=== PATIENT | male | born 1955 | race Two or more races ===

== ENCOUNTER 2025-02-09 16:46 | Inpatient (IN) | payer OTHER ==
[~2025-02-09] VITALS: Ht 162.6 cm; Wt 71.0 kg
--- NOTE | 2025-02-09 16:57 | ECG ---
[facility] Test Date: 2025-02-09 Test Time: 16:50:20 Pat Name: NITIN HERNANDEZDepartment: ER Room: 0220T Gender: M Manager Site: [place] : 1955 Requested By: ANGELA BOOGIE Order Number: [id number] Reading MD: Randy Adams Measurements Intervals [place] Rate: 56 P: 44 IL: 159 QRS: -52 QRSD: 110 T: 150 QT: 413 QTc: 399 Interpretive Statements Sinus rhythm Multiform ventricular premature complexes LVH with IVCD, LAD and secondary repol abnrm Baseline wander in lead(s) V4 Electronically Signed On 02-13-2025 12:39:34 PDT by Randy Adams Please click the below link to view image of tracing.
--- NOTE | 2025-02-09 17:08 | ED.PDOC ---
History of Present Illness HPI Comments 37-vtkx-[id number]-male presents to the ED with a chief complaint generalized weakness onset 1.5 months ago. Patient's roommate states the patient was in his normal state of health (ambulatory and without neuro deficit), then woke up one morning about 1.5 months ago experiencing LT leg weakness. Pt reports, "I was dragging my left leg," then weakness progressively worsened to involve both lower extremities, progressing to both upper extremites, to the point where he could no longer ambulate or hold objects. He also notes numbness that started in his lower extremities and now has ascended to BUE and his abdominal wall. About 1 week ago he began experiencing bilateral lower extremity swelling, difficulty breathing, and associated abdominal and back "tightness." Per friend, patient sought medical attention for the first time yesterday, was sent to [facility] for blood tests and was called today to go to ED due to abnormal lab results, CK being one of them. Patient denies any PMHx as well as chest pain, dizziness, blurry vision, headache, nausea, vomiting, constipation, fevers, chills. No other symptoms or modifying factors present at this time. Chief Complaint: Abnormal LAB's Time Seen by MD: 16:52 Reviewed Notes: Medications, Allergies Allergies: Coded Allergies: NO KNOWN ALLERGIES (Unverified , 02/09/25) Information Source: Patient, Friend Mode of Arrival: Ambulatory Severity: Moderate Timing: Months Duration: Since onset Prehospital treatment: None Past Medical History PAST MEDICAL HISTORY: Denies Surgical History: Denies all surgeries Family History Family History: Reviewed,noncontributory to illness Social History Smoker: Non-Smoker Alcohol: Denies ETOH Use Drugs: Denies Drug Use Lives In: Home Constitutional: reports: weakness; denies: chills, diaphoresis, fatigue, fever, malaise, sweats, others EENTM: denies: blurred vision, double vision, ear bleeding, ear discharge, ear drainage, ear pain, ear ringing, eye pain, eye redness, hearing loss, mouth pain, mouth swelling, nasal discharge, nose bleeding, nose congestion, nose pain, photophobia, tearing, throat pain, throat swelling, voice changes, others Respiratory: reports: shortness of breath; denies: cough, hemoptysis, orthopnea, SOB at rest, SOB with excertion, stridor, wheezing, others Cardiovascular: denies: chest pain, dizzy spells, diaphoresis, Dyspnea on exertion, edema, irregular heart beat, left arm pain, lightheadedness, palpitations, PND, syncope, others Gastrointestinal: reports: abdominal pain; denies: abdomen distended, blood streaked bowels, constipated, diarrhea, dysphagia, difficulty swallowing, hematemesis, melena, nausea, poor appetite, poor fluid intake, rectal bleeding, rectal pain, vomiting, others Genitourinary: denies: burning, dysuria, flank pain, frequency, hematuria, incontinence, penile discharge, penile sore, pain, testicle pain, testicle swelling, urgency, others Neurological: reports: weakness; denies: dizziness, fainting, headache, left sided numbness, left sided weakness, numbness, paresthesia, pre-existing deficit, right sided numbness, right sided weakness, seizure, speech problems, tingling, tremors, others Musculoskeletal: reports: back pain; denies: gout, joint pain, joint swelling, muscle pain, muscle stiffness, neck pain, others Integumetry: denies: bruises, change in color, change in hair/nails, dryness, laceration, lesions, lumps, rash, wounds, others Allergic/Immunocompromised: denies: Difficulty Healing, Frequent Infections, Hives, Itching, others Endocrine: denies: excessive hunger, excessive sweating, excessive thirst, excessive urination, flushing, intolerance to cold, intolerance to heat, unexplained weight gain, unexplained weight loss, others Psychiatric: denies: anxiety, bipolar disorder, depression, hopeless, panic disorder, schizophrenia, sleepless, suicidal, others All Other Systems: Reviewed and Negative Physical Exam General Appearance: No Apparent Distress, Other (ill appearing) HEENT: PERRL/EOMI, Other (no facial asymmetry or dysarthria) Neck: Full Range of Motion, Non-Tender, Normal Inspection, Supple Respiratory: Decreased Breath Sounds, Lungs Clear, No Accessory Muscle Use, No Respiratory Distress Cardiovascular: No JVD, Regular Rate/Rhythm Breast Exam: Deferred Gastrointestinal: Non Tender, Soft Genitalia: Deferred Pelvic: Deferred Rectal: Deferred Extremities: Swelling (BLE and hand 1+ edema), Other (BLE stiffness) Neurologic: Alert (Oriented x4), Motor Weakness (Motor strength 0/5 bilateral lower extremities, 2/5 bilateral upper extremities), Sensory Deficit (Absent light touch sensation from the feet to the nipple line) Cerebellar Function: Unable to Test Reflexes: Other (1+ patellar tendon reflex left lower extremity 1+, 0 right lower extremity) Skin: Warm, Wounds (Superficial old appearing abrasions bilateral lower extremities. Hyperpigmented chronic appearing bilateral lower extremity skin changes) Peripheral Pulses: 2+ dorsalis pedis (R), 2+ dorsalis pedis (L), 2+ Radial (R), 2+ Radial (L) Lymphatic: NOT DONE Was a procedure done? Was a procedure done?: Yes Sedation Sedation?: No Lumbar Puncture Indication: Infection Procedure: Upright Spinal Needle size: 21 Inserted in: L 4th interspace Lumbar Puncture Result: Opening Pressure was (not measured), Amount of CSF removed (4ml) Success: Was successful CSF Fluid: Clear Informed consent obtained: Yes Risks/benefits/alt described: Yes Notes consent obtained using hoop maker helper machine. risks, benefits and alternatives to tx explained in layman's terms. pt a&o x 4, capable of making informed decisions. pt consented to procedure. EKG EKG : Comments Sinus bradycardia, rate 56, normal intervals, left axis deviation, possible old anteroseptal infarct, occasional PVCs, lateral T-wave inversion Differential Dx Considerations may include: Guillain-Majestic, demyelinating neuroopathy, ALS, rhabdomyolysis or other myopathy, electrolyte imbalance, spinal cord disease, CVA, toxic neuropathy, tick paralysis, among others X-Ray, Labs, Meds, VS Vital Signs Date Time Temp Pulse Resp B/P (MAP) Pulse Ox O2 Delivery O2 Flow Rate FiO2 02/09/25 20:59 62 16 130/92 02/09/25 17:47 18 97 Room Air* 0 21 02/09/25 17:46 98.0 74 21 122/59 (80) 96 98.0 02/09/25 17:27 99.1 82 20 114/61 (78) 96 99.1 02/09/25 16:50 56 Lab Test 02/09/25 21:28 02/09/25 20:09 02/09/25 18:11 02/09/25 17:13 Range/Units CSF Tube Number Pending CSF Appearance Pending CSF WBC Pending CSF RBC Pending CSF Protein (Tube 2) 73.9 H 15-45 mg/dL CSF Mononuclear Cells Pending CSF Polymorphonuclear Cells Pending CSF Glucose 60 40-70 mg/dL Troponin I High Sensitivity 15 14 13 </=54 ng/L White Blood Count 5.4 4.4-10.8 10^3/uL Red Blood Count 5.27 4.5-5.90 10^6/uL Hemoglobin 17.3 13.5-17.5 g/dL Hematocrit 50.2 41.0-53.0 % Mean Corpuscular Volume 95.2 80.0-100.0 fL Mean Corpuscular Hemoglobin 32.9 H 28.0-32.0 pg Mean Corpuscular Hemoglobin Concent 34.6 32.0-36.0 g/dL Red Cell Distribution Width 13.1 11.8-14.3 % Platelet Count 183 140-450 10^3/uL Mean Platelet Volume 7.8 6.9-10.8 fL Neutrophils (%) (Auto) 54.7 37.0-80.0 % Lymphocytes (%) (Auto) 28.8 10.0-50.0 % Monocytes (%) (Auto) 11.4 0.0-12.0 % Eosinophils (%) (Auto) 4.6 0.0-7.0 % Basophils (%) (Auto) 0.5 0.0-2.0 % Neutrophils # (Auto) 2.9 1.6-8.6 10 ^3/uL Lymphocytes # (Auto) 1.5 0.4-5.4 10 ^3/uL Monocytes # (Auto) 0.6 0-1.3 10 ^3/uL Eosinophils # (Auto) 0.2 0-0.8 10 ^3/uL Basophils # (Auto) 0 0-0.2 10 ^3/uL Nucleated Red Blood Cells 0.2 % Sodium Level 137 136-145 mmol/L Potassium Level 4.0 3.5-5.1 mmol/L Chloride Level 106 98-107 mmol/L Carbon Dioxide Level 24 20-31 mmol/L Anion Gap 7 5-15 Blood Urea Nitrogen 19 9-23 mg/dL Creatinine 0.81 0.700-1.30 mg/dL Glomerular Filtration Rate Calc 97 >90 mL/min BUN/Creatinine Ratio 23.5 H 10.0-20.0 Serum Glucose 136 H 74-106 mg/dL Calcium Level 9.5 8.7-10.4 mg/dL Phosphorus Level 3.4 2.4-5.1 mg/dL Magnesium Level 2.2 1.6-2.6 mg/dL Total Bilirubin 0.7 0.2-1.0 mg/dL Aspartate Amino Transferase (AST) 25 13-40 U/L Alanine Aminotransferase (ALT) 22 7-40 U/L Alkaline Phosphatase 89 46-116 U/L Creatine Kinase 416 H 46-171 U/L B-Type Natriuretic Peptide 90.03 0-100 pg/mL Total Protein 7.0 5.7-8.2 g/dL Albumin 4.1 3.2-4.8 g/dL Test 02/09/25 00:00 Range/Units Urine Color Light-yellow Yellow Urine Clarity Turbid H Clear Urine pH 7.0 5.0-9.0 Urine Specific [place] 1.019 1.001-1.035 Urine Protein Negative Negative Urine Ketones Negative Negative Urine Blood Trace H Negative /uL Urine Nitrite Negative Negative Urine Bilirubin Negative Negative Urine Urobilinogen Normal Negative mg/dL Urine Leukocyte Esterase Negative Negative /uL Urine RBC <1 0 - 3 /hpf Urine Microscopic WBC < 1 0-3 /HPF Urine Squamous Epithelial Cells Few <5 /hpf Urine Amorphous Crystals Few None Seen /hpf Urine Bacteria Few H None Seen /hpf Urine Glucose Normal Normal mg/dL PROCEDURE(s): HWOCT - HEAD WITHOUT CONTRAST REASON: ascending paralysis and numbness ORDER NUMBER(s): [id number], ACCESSION NUMBER(s): [id number] EXAM: CT HEAD WITHOUT CONTRAST INDICATION: ascending paralysis and numbness TECHNIQUE: CT of the head without intravenous contrast. Radiation Dose Information: CT Dose: CTDI volume is 53.99 mGy. Dose-length product is 971.88 mGy*cm The dose indicators for CT are the volume Computed Tomography (CT) Dose Index (CTDIvol) and the Dose Length Product (DLP), and are measured in units of mGy and mGy-cm, respectively. These indicators are not patient dose, but values generated from the CT scanner acquisition factors. The report includes radiation exposure data for exposures received during this examination. COMPARISON: None FINDINGS: There is no evidence of acute intracranial hemorrhage, extra-axial collection, mass effect, midline shift, herniation or hydrocephalus. The ventricles, sulci and cisterns are age appropriate. The esparza-white differentiation is intact. Patchy periventricular and subcortical white matter hypoattenuation is nonspecific but may be related to small vessel ischemic disease. The visualized paranasal sinuses and mastoid air cells are clear. The surrounding soft tissues and osseous structures are unremarkable. IMPRESSION: 1. No acute intracranial hemorrhage. 2. No CT findings of territorial ischemia. 3. No prior studies for comparison. 4. Consider MRI for further evaluation. HS:Y EDURE(s): CXRP - CHEST PORTABLE REASON: diff breathing ORDER NUMBER(s): [id number], ACCESSION NUMBER(s): [id number] EXAM: XY CHEST PORTABLE TECHNIQUE: Single frontal chest radiograph CLINICAL HISTORY: diff breathing COMPARISON: None Findings/Impression: Frontal chest radiograph demonstrates no acute osseous or superficial soft tissue abnormalities. The trachea is midline. Borderline cardiomegaly. Mild pulmonary vascular congestion. Right lower lung field nodular opacity favored to reflect a nipple shadow. No pneumothorax, pleural effusions, or consolidations. EDURE(s): BLDVT - BiLat Lower DVT REASON: BLE edema ORDER NUMBER(s): [id number], ACCESSION NUMBER(s): [id number] EXAM: US BILAT LOWER DVT HISTORY: BLE edema COMPARISON: None available at the time of dictation TECHNIQUE: Duplex Doppler evaluation of the deep venous systems of both lower extremities from the common femoral veins to the popliteal veins including color Doppler and spectral/pulsed waveform analysis was performed. FINDINGS: RIGHT SIDE: The common femoral vein demonstrates appropriate compressibility and waveform variability. There is compressibility/patency of the great saphenous vein at the proximal thigh. The femoral vein demonstrates appropriate compressibility and waveform variabi lity. The deep femoral vein demonstrates appropriate compressibility and waveform variability. The popliteal vein demonstrates appropriate compressibility and waveform variability. There is normal compressibility at the tibioperoneal trunk. LEFT SIDE: The common femoral vein demonstrates appropriate compressibility and waveform variability. There is compressibility/patency of the great saphenous vein at the proximal thigh. The femoral vein demonstrates appropriate compressibility and waveform variabi lity. The deep femoral vein demonstrates appropriate compressibility and waveform variability. The popliteal vein demonstrates appropriate compressibility and waveform variability. There is normal compressibility at the tibioperoneal trunk. IMPRESSION: 1. No right or left femoropopliteal venous thrombosis. If clinical concern/symptoms persist or worsen, short-interval follow-up study is suggested. X-Ray, Labs, Meds, VS Comment 69-year-old male with no known past medical history presenting with ascending paralysis and numbness associated with difficulty breathing and extremity stiffness Vitals remarkable for initial heart rate of 56 Exam remarkable for motor weakness in the lower extremities greater than the upper extremities, lack of sensation touch from the feet to the nipple line Rhythm strip independently interpreted by me: Sinus bradycardia, rate 56, occasional PVCs CT head and Chest x-ray remarkable Bilateral lower extremity ultrasound negative for DVT CBC, CMP, BNP and troponin unremarkable, total CK 416, UA blood and few bacteria, otherwise unremarkable Patient treated with the following in the ED: Morphine 4mg IV (for back discomfort due to positioning prior to LP), zofran 4mg IV. Plan is to admit the patient for brain and spine MRI, neurology evaluation. Discussed with TODD Monzon, who will consult with Dr. Roblero prior to admitting the patient. They requested CT C/T/L spine which was ordered. Case discussed with Dr. Phyllis Solomon, neurology, who will further discuss the case with TODD Monzon. She did recommend stat LP, which was performed by me in the ED. Please see procedure note for details. Time of 1ST Reevaluation: 17:22 Reevaluation 1ST: Unchanged Patient Education/Counseling: Diagnosis, Treatment, Prognosis Family Education/Counseling: Diagnosis, Treatment, Prognosis Departure 1 Departure Time of Disposition: 17:42 Impression: Primary Impression: Ascending paralysis Disposition: 09 ADMITTED INPATIENT Admit to: Tele Condition: Guarded Critical Care Note Critical Care Time?: No Stability Stability form required: No Heart Score Heart Score: Heart Score Response (Comments) Value History N/A 0 EKG N/A 0 Age N/A 0 Risk Factors N/A 0 Troponin N/A 0 Total 0 I personally scribed for ANGELA JOHNSON MD ([email or web address]) on 02/09/25 at 17:08. Electronically submitted by Pippa Bowens ([email or web address]). ANGELA JOHNSON MD February 09, 2025 17:08
[2025-02-09 17:29] LABS: Basophils # (auto) 0 10 ^3/uL (0-0.2); Basophils % (auto) 0.5 % (0.0-2.0); Eosinophils # (auto) 0.2 10 ^3/uL (0-0.8); Eosinophils % (auto) 4.6 % (0.0-7.0); Hematocrit 50.2 % (41.0-53.0); Hemoglobin 17.3 g/dL (13.5-17.5); Lymphocytes # (auto) 1.5 10 ^3/uL (0.4-5.4); Lymphocytes % (auto) 28.8 % (10.0-50.0); Mean Corpuscular Hemoglobin 32.9 pg (28.0-32.0); Mean Corpuscular Hgb Conc. 34.6 g/dL (32.0-36.0); Mean Corpuscular Volume 95.2 fL (80.0-100.0); Monocytes # (auto) 0.6 10 ^3/uL (0-1.3); Monocytes % (auto) 11.4 % (0.0-12.0); Neutrophils # (auto) 2.9 10 ^3/uL (1.6-8.6); Neutrophils % (auto) 54.7 % (37.0-80.0); Nucleated Red Blood Cells % 0.2 %; Platelet Count (auto) 183 10^3/uL (140-450); Red Blood Cells 5.27 10^6/uL (4.5-5.90); Red Cell Distribution Width 13.1 % (11.8-14.3); White Blood Cell 5.4 10^3/uL (4.4-10.8)
[2025-02-09 17:46] LABS: Alanine Aminotransferase 22 U/L (7-40); Albumin 4.1 g/dL (3.2-4.8); Alkaline Phosphatase 89 U/L (46-116); Anion Gap 7 (5-15); Aspartate Aminotransferase 25 U/L (13-40); BUN/Creatinine Ratio 23.5 (10.0-20.0); Blood Urea Nitrogen 19 mg/dL (9-23); Calcium 9.5 mg/dL (8.7-10.4); Carbon Dioxide 24 mmol/L (20-31); Chloride 106 mmol/L (98-107); Sodium 137 mmol/L (136-145)
[2025-02-09 17:47] VITALS: RESP 18; O2SAT 97
[2025-02-09 17:47] LABS: Bilirubin, Total 0.7 mg/dL (0.2-1.0)
--- NOTE | 2025-02-09 17:56 | DVH ---
EXAM: CT HEAD WITHOUT CONTRAST INDICATION: ascending paralysis and numbness TECHNIQUE: CT of the head without intravenous contrast. Radiation Dose Information: CT Dose: CTDI volume is 53.99 mGy. Dose-length product is 971.88 mGy*cm The dose indicators for CT are the volume Computed Tomography (CT) Dose Index (CTDIvol) and the Dose Length Product (DLP), and are measured in units of mGy and mGy-cm, respectively. These indicators are not patient dose, but values generated from the CT scanner acquisition factors. The report includes radiation exposure data for exposures received during this examination. COMPARISON: None FINDINGS: There is no evidence of acute intracranial hemorrhage, extra-axial collection, mass effect, midline s hift, herniation or hydrocephalus. The ventricles, sulci and cisterns are age appropriate. The esparza-white differentiation is intact. Patchy periventricular and subcortical white matter hypoattenuation is nonspecific but may be related to small vessel ischemic disease. The visualized paranasal sinuses and mastoid air cells are clear. The surrounding soft tissues and osseous structures are unremarkable. IMPRESSION: 1. No acute intracranial hemorrhage. 2. No CT findings of territorial ischemia. 3. No prior studies for comparison. 4. Consider MRI for further evaluation. HS:Y
[2025-02-09 18:09] LABS: Creatine Kinase IFCC 416 U/L (46-171); Glucose 136 mg/dL (74-106)
[2025-02-09 18:17] LABS: Urine Amorphous Crystal FEW /hpf (None Seen); Urine Bacteria FEW /hpf (None Seen); Urine Blood TRACE /uL (Negative); Urine Clarity Turbid (Clear); Urine Color Light-Yellow (Yellow); Urine Protein, UAD Negative (Negative); Urine Specific Gravity 1.019 (1.001-1.035); Urine Squamous Epithelial Cell FEW /hpf (<5); Urine Urobilinogen Normal (Negative); Urine WBC < 1 /HPF (0-3)
[2025-02-09 18:21] LABS: Magnesium 2.2 mg/dL (1.6-2.6)
[2025-02-09 18:23] LABS: Phosphorus 3.4 mg/dL (2.4-5.1)
--- NOTE | 2025-02-09 18:49 | DVH ---
EXAM: XY CHEST PORTABLE TECHNIQUE: Single frontal chest radiograph CLINICAL HISTORY: diff breathing COMPARISON: None Findings/Impression: Frontal chest radiograph demonstrates no acute osseous or superficial soft tissue abnormalities. The trachea is midline. Borderline cardiomegaly. Mild pulmonary vascular congestion. Right lower lung field nodular opacity favored to reflect a nipple shadow. No pneumothorax, pleural effusions, or consolidations.
--- NOTE | 2025-02-09 19:04 | DVH ---
EXAM: US BILAT LOWER DVT HISTORY: BLE edema COMPARISON: None available at the time of dictation TECHNIQUE: Duplex Doppler evaluation of the deep venous systems of both lower extremities from the co mmon femoral veins to the popliteal veins including color Doppler and spectral/pulsed waveform analys is was performed. FINDINGS: RIGHT SIDE: The common femoral vein demonstrates appropriate compressibility and waveform variability. There is compressibility/patency of the great saphenous vein at the proximal thigh. The femoral vein demonstrates appropriate compressibility and waveform variability. The deep femoral vein demonstrates appropriate compressibility and waveform variability. The popliteal vein demonstrates appropriate compressibility and waveform variability. There is normal compressibility at the tibioperoneal trunk. LEFT SIDE: The common femoral vein demonstrates appropriate compressibility and waveform variability. There is compressibility/patency of the great saphenous vein at the proximal thigh. The femoral vein demonstrates appropriate compressibility and waveform variability. The deep femoral vein demonstrates appropriate compressibility and waveform variability. The popliteal vein demonstrates appropriate compressibility and waveform variability. There is normal compressibility at the tibioperoneal trunk. IMPRESSION: 1. No right or left femoropopliteal venous thrombosis. If clinical concern/symptoms persist or worsen, short-interval follow-up study is suggested.
[2025-02-09] MEDS: IOHEXOL 300 MG/ML 100ML BOTTLE IJ ONE (20:21)
[2025-02-09 20:45] VITALS: RESP 16; O2SAT 98
[2025-02-09] MEDS: ONDANSETRON HCL 4 MG/2 ML VIAL ONE (20:59)
[2025-02-09] MEDS: MORPHINE SULFATE 4 MG/ML SYR/VIAL ONE (20:59)
--- NOTE | 2025-02-09 21:31 | DVH ---
EXAM: CT CERVICAL WO W CONTRAST INDICATION: ascending paralysis and numbness EXAM DATE: 02/09/2025 08:37 PM COMPARISON: None TECHNIQUE: Multiple axial CT images of the cervical spine were obtained using bone algorithm. Axial a nd coronal reformatting was done. Bone and soft tissue windows were reviewed. Radiation Dose Information: CT Dose: CTDI volume is 44.23 mGy. Dose-length product is 1095.19 mGy*cm Mild straightening of the normal cervical lordotic curve may be secondary to patient positioning or m uscle spasm. Bony spondylosis and degenerative disc changes are noted from C3 through C7. There is a 5.4 mm subchondral cyst anteriorly near the inferior articular surface C3. FINDINGS: The cervical alignment is intact. No acute cervical spine fracture is identified. The vertebral body heights are intact. No suspicious osseous lesions are identified. No significant degenerative changes are identified. Sqyb-um-jvwrepkg spinal stenosis of the central canal C3-4 measuring 7-8 mm. There is no prevertebral soft tissue swelling. IMPRESSION: 1. No evidence of acute cervical spine fracture or traumatic malalignment. 2. Hqyl-qr-iojodayy spinal stenosis C3-4. 3. CT is nondiagnostic for evaluating demyelinating disease recommend MRI. All CT scans at this medical facility are performed using dose modulation techniques as appropriate t o a performed exam including the following: Automated exposure control was utilized; adjustment of th e MA and/or KV according to patient size; and use of iterative reconstruction technique. HS:Y
--- NOTE | 2025-02-09 21:42 | DVH ---
CT LUMBAR SPINE WO/ W contrast Date: 02/09/2025 08:28 PM History: ascending paralysis and numbness Comparison: None TECHNIQUE: Multiple axial CT images of the lumbosacral spine were obtained using bone algorithm. Axial and coron al reformatting was done. Bone and soft tissue windows were reviewed. Radiation Dose Information: CT Dose: CTDI volume is 36.28 mGy. Dose-length product is 2694.66 mGy*cm Omni 300: 50 mL FINDINGS: No CT evidence of definite acute fracture, spinal dislocation, or significant appearing acute subluxa tion is seen. The visualized paraspinal soft tissues are grossly unremarkable. T12-L1 There is no evidence of central spinal canal or neuroforaminal stenosis. L1-L2 There is no evidence of central spinal canal or neuroforaminal stenosis. L2-L3 moderate spinal stenosis at L2-3 with the thecal sac compressed to mm front to back dimension L3-L4 There is no evidence of central spinal canal or neuroforaminal stenosis. L4-L5 There is no evidence of central spinal canal or neuroforaminal stenosis. L5-S1 hypertrophic arthritic changes of the posterior articulating facets and hypertrophy of the liga mentum flavum bilaterally. Moderate spinal stenosis at this level. Canal measures 6.2 mm front to caitlyn k IMPRESSION: 1. No definite CT evidence of acute fracture or dislocation of the bony lumbar spine. 2. Tyni-lg-asubceki spinal stenosis L2-3 L5-S1. Recommend MRI or repeat CT with intrathecal contrast to determine significant stenosis. CT is nondiagnostic for evaluating demyelinating disease even wit h IV contrast. Recommend MRI. All CT scans at this medical facility are performed using dose modulation techniques as appropriate to a performed exam including the following: Automated exposure control was utilized; adjustment of t he MA and/or KV according to patient size; and use of iterative reconstruction technique. HS:Y
[2025-02-09 22:09] LABS: Protein, CSF 73.9 mg/dL (15-45)
[2025-02-09 22:44] LABS: CSF White Blood Cells 1 CUMM (0-5); Description,CSF CLEAR, COLORLESS
[2025-02-09] MEDS ORDERED: ONDANSETRON HCL 4 MG/2 ML VIAL IV PRN (22:45)
--- NOTE | 2025-02-09 23:03 | DVH ---
EXAM: CT THORACIC SPINE WO W HISTORY: ascending paralysis and numbness COMPARISON: None CTDIvol mGy, DLP mGy*cm. TECHNIQUE: Multiple axial CT images of the spine were obtained using bone algorithm. Axial and coron al reformatting was done. Bone and soft tissue windows were reviewed. FINDINGS: Mild thoracic dextroscoliosis. No listhesis. The thoracic vertebral bodies demonstrate no evidence of fracture or other significant abnormality. Paraspinal soft tissues appear unremarkable. Mild thoraci c spondylosis without significant disc-osteophyte, spinal canal or neural foraminal stenosis at any o f the levels in the thoracic spine. IMPRESSION: No significant abnormality demonstrated.
[2025-02-10] VITALS (10 sets, daily range): BP systolic 112–124; BP diastolic 50–71; PULSE 55–70; RESP 16–18; TEMP 96.1–97.8; O2SAT 92–98
--- NOTE | 2025-02-10 03:11 | DVHHP2 ---
Admitting Diagnosis: Ascending paralysis, r/o GBS History of Present Illness History Source: Patient Exam Limitations: No limitations HPI Mr. Bassam Aguilar is a [id number]-male with no reported history who presents with a chief complaint of generalized weakness onset 3 months ago. Patient's roommate states the patient was in his normal state of health (ambulatory and without neuro deficit), then woke up one morning about 1.5 months ago experiencing LT leg weakness. Pt reports, "I was dragging my left leg," then weakness progressively worsened to involve both lower extremities, progressing to both upper extremities, to the point where he could no longer ambulate or hold objects. He also notes numbness that started in his lower extremities and now has ascended to BUE and his abdominal wall. About 1 week ago he began experiencing bilateral lower extremity swelling, difficulty breathing, and associated abdominal and back "tightness." Per friend, patient sought medical attention for the first time yesterday, was sent to [facility] for blood tests and was called today to go to ED due to abnormal lab results, patient found to have a CK of 416 as abnormal lab on ED workup. Patient CXR: unremarkable, CT head wo contrast no acute abnormality, BLE venous US with no DVT. Patient denies chest pain, dyspnea, headaches, dizziness, blurry vision, nausea, vomiting, fevers, chills, dysuria, loss of bowel function. Patient admitted for further evaluation and treatment. Home Meds No Active Prescriptions or Reported Meds Past Medical History Cardiac: No pertinent Hx Pulmonary: No pertinent Hx Central Nervous System: No pertinent Hx GI: No pertinent Hx Hemotology/Oncology: No pertinent Hx Hepatobiliary: No pertinent Hx Psychiatric: No pertinent Hx Musculoskeletal: No pertinent Hx Rheumotologic: No pertinent Hx Infectious Disease: No peritnent Hx ENT: No pertinent Hx Renal/: No pertinent Hx Endocrine: No pertinent Hx Dermatology: No pertinent Hx Patient Family History: Patient reports no known family medical history. Smoker: No Hx (Negative) Alocohol: Occassional Drugs: Marijuana (occasional) Lives with: Friends Domestic Violence: Neg Review of Systems Constitutional: Weakness Ears, Nose, & Throat: No symptom reported Eyes: No symptom reported Pulmonary/Respiratory: No symptom reported Cardiovascular: No symptom reported Gastrointestinal: No symptom reported Genitourinary: No symptom reported Musculoskeletal: No symptom reported Skin: No symptom reported Psychiatric: No symptom reported Endocrine: No symptom reported Hemotologic/Lymphatic: No symptom reported All Other Systems generalized weakness, BLE weakness unable to ambulate, thoracic numbness to BLE numbness, BUE weakness. H&P Exam Vital Signs Vital Signs Date Time Temp Pulse Resp B/P (MAP) Pulse Ox O2 Delivery O2 Flow Rate FiO2 02/10/25 01:00 97.4 56 16 112/71 (85) 98 97.4 02/10/25 00:49 Room Air* 0 21 General Appeara: Well developed, Well nourished Head Exam: Normal inspection Neck Exam: Normal inspection, Non-tender, Normal alignment Eye Exam: bilateral eye Normal inspection, bilateral eye PERRL, bilateral eye EOMI Ear Exam: bilateral ear Auricle normal Nasal Exam: Normal inspection Mouth: Normal Inspection Pulmonary/Respiratory: Normal inspection, Normal breath sounds, Chest non- tender, Lungs clear Cardiovascular/Chest: Normal inspection, Regular rate, Normal Rhythm Peripheral Pulses: 2+ dorsalis pedis (R), 2+ dorsalis pedis (L), 2+ Radial (R), 2+ Radial (L) Abdominal Exam: Normal bowel sounds, Soft, No tenderness Rectal Exam: Deferred Back Exam: Muscle spasm Hand Exam: Stiffness (bilateral ) Legs: bilateral leg other (stiffness) [employer] Exam: Normal hearing, Normal speech, PERRL Motor/Sensory: Weak motor strength RUE, Weak motor strength LUE, Weak motor strength RLE, Weak motor strength LLE Neuro/Mental St: Alert, Oriented Appearance: Appropriate insight, Disheveled Eye contact/ Speech: Cooperative, Good eye contact, Normal speech Thoughts/Psych: Normal thought pattern Skin Exam: Normal inspection, Normal color, Warm/dry Wounds multiple scabs to BLE Labs/Xrays Labs Test 02/09/25 21:28 02/09/25 20:09 02/09/25 17:13 02/09/25 00:00 Range/Units CSF Tube Number Tube 3 CSF Appearance Clear, colorless CSF WBC 1 0-5 CUMM CSF RBC 66 H 0-5 CUMM CSF Protein (Tube 2) 73.9 H 15-45 mg/dL CSF Mononuclear Cells % CSF Polymorphonuclear Cells % CSF Glucose 60 40-70 mg/dL Troponin I High Sensitivity 15 </=54 ng/L White Blood Count 5.4 4.4-10.8 10^3/uL Red Blood Count 5.27 4.5-5.90 10^6/uL Hemoglobin 17.3 13.5-17.5 g/dL Hematocrit 50.2 41.0-53.0 % Mean Corpuscular Volume 95.2 80.0-100.0 fL Mean Corpuscular Hemoglobin 32.9 H 28.0-32.0 pg Mean Corpuscular Hemoglobin Concent 34.6 32.0-36.0 g/dL Red Cell Distribution Width 13.1 11.8-14.3 % Platelet Count 183 140-450 10^3/uL Mean Platelet Volume 7.8 6.9-10.8 fL Neutrophils (%) (Auto) 54.7 37.0-80.0 % Lymphocytes (%) (Auto) 28.8 10.0-50.0 % Monocytes (%) (Auto) 11.4 0.0-12.0 % Eosinophils (%) (Auto) 4.6 0.0-7.0 % Basophils (%) (Auto) 0.5 0.0-2.0 % Neutrophils # (Auto) 2.9 1.6-8.6 10 ^3/uL Lymphocytes # (Auto) 1.5 0.4-5.4 10 ^3/uL Monocytes # (Auto) 0.6 0-1.3 10 ^3/uL Eosinophils # (Auto) 0.2 0-0.8 10 ^3/uL Basophils # (Auto) 0 0-0.2 10 ^3/uL Nucleated Red Blood Cells 0.2 % Sodium Level 137 136-145 mmol/L Potassium Level 4.0 3.5-5.1 mmol/L Chloride Level 106 98-107 mmol/L Carbon Dioxide Level 24 20-31 mmol/L Anion Gap 7 5-15 Blood Urea Nitrogen 19 9-23 mg/dL Creatinine 0.81 0.700-1.30 mg/dL Glomerular Filtration Rate Calc 97 >90 mL/min BUN/Creatinine Ratio 23.5 H 10.0-20.0 Serum Glucose 136 H 74-106 mg/dL Calcium Level 9.5 8.7-10.4 mg/dL Phosphorus Level 3.4 2.4-5.1 mg/dL Magnesium Level 2.2 1.6-2.6 mg/dL Total Bilirubin 0.7 0.2-1.0 mg/dL Aspartate Amino Transferase (AST) 25 13-40 U/L Alanine Aminotransferase (ALT) 22 7-40 U/L Alkaline Phosphatase 89 46-116 U/L Creatine Kinase 416 H 46-171 U/L B-Type Natriuretic Peptide 90.03 0-100 pg/mL Total Protein 7.0 5.7-8.2 g/dL Albumin 4.1 3.2-4.8 g/dL Urine Color Light-yellow Yellow Urine Clarity Turbid H Clear Urine pH 7.0 5.0-9.0 Urine Specific [place] 1.019 1.001-1.035 Urine Protein Negative Negative Urine Ketones Negative Negative Urine Blood Trace H Negative /uL Urine Nitrite Negative Negative Urine Bilirubin Negative Negative Urine Urobilinogen Normal Negative mg/dL Urine Leukocyte Esterase Negative Negative /uL Urine RBC <1 0 - 3 /hpf Urine Microscopic WBC < 1 0-3 /HPF Urine Squamous Epithelial Cells Few <5 /hpf Urine Amorphous Crystals Few None Seen /hpf Urine Bacteria Few H None Seen /hpf Urine Glucose Normal Normal mg/dL Microbiology Date/Time Source Procedure Growth Status 02/09/25 21:28 Cerebral Spinal Fluid Gram Stain - Final Resulted 02/09/25 21:28 Cerebral Spinal Fluid CSF Culture & Gram Stain (Tube 2) M Pending Resulted Assessment/Plan Problem List: (1) Ascending paralysis Plan This is a 69 yo male with no reported past medical history who presents to the hospital with weakness, BLE and BUE weakness and numbness progressively getting worse. Neurology was consulted , recommendation admit , LP, MRI Brain , c spine, T spine w and wo contrast. Patient found to have 1. Ascending Paralysis 2. rule out GBS ? Plan: Admit Telemetry unit Neurology consultation appreciated , MRI Brain , c spine, t spine w / wo contrast Aspiration precautions Urine culture, BC x2 Monitor CK level Discussed all above with patient who verbalizes agreement and understanding of care plan. All questions were answered. Discussed care plan with patient nurse Myesha VELA. Discussed care plan with Neurologists Discussed assessment and care plan with supervising MD Plan discussed with: Patient, Other Code Visit Code Visit Total Time (mins): 45 Additional Comments Additional Comments Additional Comments Patient was seen and evaluated by me. I agree with the assessment and plan as outlined by my nurse practitioner. We will follow up Neurology recommendations. RHEA WYMAN February 10, 2025 03:11 AARON CESPEDES MD February 10, 2025 14:54
[2025-02-10 06:08] LABS: Basophils # (auto) 0 10 ^3/uL (0-0.2); Basophils % (auto) 0.3 % (0.0-2.0); Eosinophils # (auto) 0.2 10 ^3/uL (0-0.8); Hematocrit 47.7 % (41.0-53.0); Hemoglobin 16.7 g/dL (13.5-17.5); Lymphocytes # (auto) 1.3 10 ^3/uL (0.4-5.4); Lymphocytes % (auto) 21.1 % (10.0-50.0); Mean Corpuscular Hemoglobin 33.3 pg (28.0-32.0); Mean Corpuscular Volume 95.3 fL (80.0-100.0); Monocytes # (auto) 0.8 10 ^3/uL (0-1.3); Monocytes % (auto) 13.3 % (0.0-12.0); Neutrophils # (auto) 3.8 10 ^3/uL (1.6-8.6); Neutrophils % (auto) 61.3 % (37.0-80.0); Nucleated Red Blood Cells % 0.1 %; Platelet Count (auto) 161 10^3/uL (140-450); White Blood Cell 6.1 10^3/uL (4.4-10.8)
[2025-02-10 06:17] LABS: Chloride 104 mmol/L (98-107); Potassium 3.9 mmol/L (3.5-5.1); Sodium 138 mmol/L (136-145)
[2025-02-10 06:18] LABS: Anion Gap 7 (5-15); Carbon Dioxide 27 mmol/L (20-31)
[2025-02-10 06:19] LABS: Calcium 8.7 mg/dL (8.7-10.4)
[2025-02-10 06:23] LABS: BUN/Creatinine Ratio 18.8 (10.0-20.0); Blood Urea Nitrogen 16 mg/dL (9-23); INR 1.03 (0.9-1.15); Prothrombin Time 10.9 sec (9.3-11.8)
[2025-02-10 06:24] LABS: Glucose 120 mg/dL (74-106)
[2025-02-10] MEDS: MORPHINE SULFATE INJ 2 MG/ml SYRG IV PRN (13:23)
[2025-02-10] MEDS: NITROGLYCERIN 0.4 MG SL TAB SL PRN (13:26)
--- NOTE | 2025-02-10 13:58 | DVHINCON2 ---
Date Seen: February 10, 2025 Referring Physician Imer Reason for Consultation Chest Pain History of Present Illness 69-year-old male with no significant past medical history presents to the hospital with generalized weakness. Patient states symptoms started about 3 months ago with lower extremity weakness mainly in his left leg to the point to where he was dragging his left leg. Symptoms progressively got worse involving both lower extremities and now progressing to his upper extremities bilaterally. Patient never sought to seek medical attention though did get his labs drawn and found to have elevated CK of 416 and therefore was referred to come to the hospital. Patient was admitted to the hospital for ascending paralysis rule out GBS. While on telemetry patient noted to have episode of chest pain. Chest pain noted to be left-sided, nonradiating, pressure/sharp in nature, constant. Initial EKG done on admission reviewed and shows sinus bradycardia 56 beats per minute, PVCs, LVH. EKG done at bedside with chest pain reviewed and shows sinus bradycardia 58 beats per minute PVCs now with lateral ST and T-wave abnormality noted. Patient received nitro sublingual x 1 which resolved chest pain. Cardiology consulted. Initial troponins negative. Repeat troponin pending. Past Medical History Denies Past Surgical History Denies Family History: Patient reports no known family medical history. Social History Patient denies tobacco use though occasional use of marijuana and alcohol. Allergies: Coded Allergies: NO KNOWN ALLERGIES (Unverified , 02/09/25) Home Meds No Active Prescriptions or Reported Meds Current Medications Current Medications Medications (Trade) Dose Ordered Sig/Jeremiah Route PRN Reason Start Time Stop Time Status Last Admin Ondansetron HCl (Zofran) 4 mg Q6HPRN PRN IV NAUSEA / VOMITING 02/09/25 22:45 Acetaminophen (Tylenol Tablet) 650 mg Q6HPRN PRN PO PAIN SCALE 1-3 OR TEMP>100.4 02/09/25 22:45 Nitroglycerin (Ntrostat Sublingual) 0.4 mg Q5MINP PRN SL FOR CHEST PAIN 02/10/25 12:45 02/10/25 13:26 Morphine Sulfate 2 mg [id number] PRN IV MODERATE PAIN (4-6 PAIN SCALE) 02/10/25 12:45 02/10/25 13:23 Review of Systems Constitutional: No: Fever, Chills, Sweats, Weakness, Malaise, Other Eyes: No: Pain, Vision change, Conjunctivae inflammation, Eyelid inflammation, Other, Redness ENT: No: Ear pain, Ear discharge, Nose pain, Nose discharge, Nose congestion, Mouth pain, Mouth swelling, Throat pain, Throat swelling, Other Respiratory: No: Cough, Dry, Shortness of breath, SOB with exertion, Wheezing, Hemoptysis, Pleuritic Pain, Sputum, Wheezing, Other Cardiovascular: ; No: Palpitations, Orthopnea, Paroxysmal Noc. Dyspnea, Edema, Lt Headedness, Other positive: Chest Pain Gastrointestinal: No: Nausea, Vomiting, Abdominal Pain, Diarrhea, Constipation, Melena, Hematochezia, Other Genitourinary: No Dysuria, No Frequency, No Incontinence, No Hematuria, No Retention, No Other Musculoskeletal: neck pain; No: other, shoulder pain, arm pain, back pain, hand pain, leg pain, foot pain Skin: No: Rash, Lesions, Jaundice, Bruising, Other Neurological: Other (Dizziness, headache.); No: Incoordination, Change in speech, Confusion, Seizures positive: Bilateral upper and lower extremity Weakness, Numbness, Vital Signs Vital Signs Date Time Temp Pulse Resp B/P (MAP) Pulse Ox O2 Delivery O2 Flow Rate FiO2 02/10/25 13:26 131/66 02/10/25 13:23 60 18 02/10/25 09:00 97.5 97 97.5 02/10/25 08:00 Room Air* 0 21 Physical Exam General appearance: Patient is well-developed, well-nourished, in no acute distress. HEENT: Exam shows: Normocephalic, atraumatic, PERRLA, EOMI Neck: Supple, no bruits Chest: Equal chest excursion bilaterally. Breath sounds normal-no rales or wheezes. Heart: Rhythm: Regular rate; no murmur or gallop Abdomen: Exam shows: Soft, nontender, nondistended Musculoskeletal: No clubbing, no cyanosis, no lower extremity edema Dermatology: Skin warm, moist. Neurological: Exam shows: Alert and oriented x4, normal speech bilateral upper and lower extremity weakness Available prior records, labs, EKG, rhythm strips reviewed and interpreted Labs/Diagnostic Data Labs Test 02/10/25 13:20 02/10/25 05:44 02/09/25 21:28 02/09/25 17:13 Range/Units White Blood Count 6.1 4.4-10.8 10^3/uL Red Blood Count 5.00 4.5-5.90 10^6/uL Hemoglobin 16.7 13.5-17.5 g/dL Hematocrit 47.7 41.0-53.0 % Mean Corpuscular Volume 95.3 80.0-100.0 fL Mean Corpuscular Hemoglobin 33.3 H 28.0-32.0 pg Mean Corpuscular Hemoglobin Concent 35.0 32.0-36.0 g/dL Red Cell Distribution Width 13.0 11.8-14.3 % Platelet Count 161 140-450 10^3/uL Mean Platelet Volume 7.6 6.9-10.8 fL Neutrophils (%) (Auto) 61.3 37.0-80.0 % Lymphocytes (%) (Auto) 21.1 10.0-50.0 % Monocytes (%) (Auto) 13.3 H 0.0-12.0 % Eosinophils (%) (Auto) 4.0 0.0-7.0 % Basophils (%) (Auto) 0.3 0.0-2.0 % Neutrophils # (Auto) 3.8 1.6-8.6 10 ^3/uL Lymphocytes # (Auto) 1.3 0.4-5.4 10 ^3/uL Monocytes # (Auto) 0.8 0-1.3 10 ^3/uL Eosinophils # (Auto) 0.2 0-0.8 10 ^3/uL Basophils # (Auto) 0 0-0.2 10 ^3/uL Nucleated Red Blood Cells 0.1 % Prothrombin Time 10.9 9.3-11.8 sec Prothrombin Time INR 1.03 0.9-1.15 Sodium Level 138 136-145 mmol/L Potassium Level 3.9 3.5-5.1 mmol/L Chloride Level 104 98-107 mmol/L Carbon Dioxide Level 27 20-31 mmol/L Anion Gap 7 5-15 Blood Urea Nitrogen 16 9-23 mg/dL Creatinine 0.85 0.700-1.30 mg/dL Glomerular Filtration Rate Calc 95 >90 mL/min BUN/Creatinine Ratio 18.8 10.0-20.0 Serum Glucose 120 H 74-106 mg/dL Calcium Level 8.7 8.7-10.4 mg/dL CSF Tube Number Tube 3 CSF Appearance Clear, colorless CSF WBC 1 0-5 CUMM CSF RBC 66 H 0-5 CUMM CSF Protein (Tube 2) 73.9 H 15-45 mg/dL CSF Mononuclear Cells % CSF Polymorphonuclear Cells % CSF Glucose 60 40-70 mg/dL Phosphorus Level 3.4 2.4-5.1 mg/dL Magnesium Level 2.2 1.6-2.6 mg/dL Total Bilirubin 0.7 0.2-1.0 mg/dL Aspartate Amino Transferase (AST) 25 13-40 U/L Alanine Aminotransferase (ALT) 22 7-40 U/L Alkaline Phosphatase 89 46-116 U/L Creatine Kinase 416 H 46-171 U/L B-Type Natriuretic Peptide 90.03 0-100 pg/mL Total Protein 7.0 5.7-8.2 g/dL Albumin 4.1 3.2-4.8 g/dL Test 02/09/25 00:00 Range/Units Urine Color Light-yellow Yellow Urine Clarity Turbid H Clear Urine pH 7.0 5.0-9.0 Urine Specific [place] 1.019 1.001-1.035 Urine Protein Negative Negative Urine Ketones Negative Negative Urine Blood Trace H Negative /uL Urine Nitrite Negative Negative Urine Bilirubin Negative Negative Urine Urobilinogen Normal Negative mg/dL Urine Leukocyte Esterase Negative Negative /uL Urine RBC <1 0 - 3 /hpf Urine Microscopic WBC < 1 0-3 /HPF Urine Squamous Epithelial Cells Few <5 /hpf Urine Amorphous Crystals Few None Seen /hpf Urine Bacteria Few H None Seen /hpf Urine Glucose Normal Normal mg/dL Microbiology Date/Time Source Procedure Growth Status 02/09/25 21:28 Cerebral Spinal Fluid Gram Stain - Final Resulted 02/09/25 21:28 Cerebral Spinal Fluid CSF Culture & Gram Stain (Tube 2) M - Preliminary Resulted Assessment * Chest pain - initially troponins negative. Continue trending. EKG with lateral ST and T-wave changes/abnormality. Check echo. Aspirin. * Ascending paralysis , rule out GBS.- CT lumbar spine showing [id number] spinal stenosis. S/p lumbar puncture, follow up. Neurology on board. * Elevated CK level - continue monitoring management per primary team. Case Discussed with Dr Bahena . Follow up echo, continue trending troponins. Nitro sublingual p.r.n.. Critical care, time spent: 40 minutes This medical document was created using an electronic medical record system with voice recognition software and computerized dictation system. Although this document has been carefully reviewed, there might still be some phonetic and typographical errors. Occasional wrong-word or ``sound-alike substitutions may have occurred due to the inherent limitations of voice recognition software. These areas are purely typographical due to imperfections of the software programs and do not reflect any compromise in the patient's medical care. Please read the chart carefully and recognize, using context, where these s ubstitutions have occurred. Thank you for allowing me to participate in the management of this patient. The treatment plan was discussed with and agreed upon by patient/family including requesting consultants and ordering of imaging/procedures. Plan discussed with: Patient NYHA Physical activity limitations: Class3(Marked) ordinary Date of Service: February 10, 2025 Billing Provider: YUSRA LIGHT Cardiology Common Codes: [id number] INP/OBS CARE (High), [id number] CARE 30-74 MIN YUSRA LIGHT February 10, 2025 13:58
[2025-02-10] MEDS ORDERED: DOCUSATE SOD 100 MG CAP PO PRN (14:30)
[2025-02-10] MEDS: ACETAMINOPHEN 325 MG TAB PO PRN (16:41)
--- NOTE | 2025-02-10 21:27 | DVHINCON2 ---
Date Seen: February 10, 2025 Referring Physician Imer Reason for Consultation Chest Pain History of Present Illness This is a 69-year-old male with no significant past medical history presents to the ED with c/o generalized weakness. Patient states symptoms started about 3 months ago with lower extremity weakness mainly in his left leg to the point to where he was dragging his left leg. Symptoms progressively got worse involving both lower extremities and now progressing to his upper extremities bilaterally. Patient never sought to seek medical attention though did get his labs drawn and found to have elevated CK of 416 and therefore was referred to come to the hospital. Patient was admitted to the hospital for ascending paralysis rule out GBS. While on telemetry patient noted to have episode of chest pain. Chest pain noted to be left-sided, nonradiating, pressure/sharp in nature, constant. Initial EKG done on admission reviewed and shows sinus bradycardia 56 beats per minute, PVCs, LVH. EKG done at bedside with chest pain reviewed and shows sinus bradycardia 58 beats per minute PVCs now with lateral ST and T-wave abnormality noted. Patient received nitro sublingual x 1 which resolved chest pain. Cardiology consulted. Initial troponins negative. Repeat troponin pending.Chest x-ray showed borderline cardiomegaly, mild pulmonary vascular congestion, rght lower lung field nodular opacity favored to reflect a nipple shadow. Past Medical History Denies Past Surgical History Denies Family History: Patient reports no known family medical history. Allergies: Coded Allergies: NO KNOWN ALLERGIES (Unverified , 02/09/25) Home Meds No Active Prescriptions or Reported Meds Current Medications Current Medications Medications (Trade) Dose Ordered Sig/Jeremiah Route PRN Reason Start Time Stop Time Status Last Admin Ondansetron HCl (Zofran) 4 mg Q6HPRN PRN IV NAUSEA / VOMITING 02/09/25 22:45 Acetaminophen (Tylenol Tablet) 650 mg Q6HPRN PRN PO PAIN SCALE 1-3 OR TEMP>100.4 02/09/25 22:45 Nitroglycerin (Ntrostat Sublingual) 0.4 mg Q5MINP PRN SL FOR CHEST PAIN 02/10/25 12:45 02/10/25 13:26 Morphine Sulfate 2 mg [id number] PRN IV MODERATE PAIN (4-6 PAIN SCALE) 02/10/25 12:45 02/10/25 13:23 Docusate Sodium (Colace Capsule) 100 mg BIDPRN PRN PO FOR CONSTIPATION 02/10/25 14:30 Sennosides (Senokot Tablet) 17.2 mg HS PO 02/10/25 22:00 Review of Systems Constitutional: No: Fever, Chills, Sweats, Weakness, Malaise, Other Eyes: No: Pain, Vision change, Conjunctivae inflammation, Eyelid inflammation, Other, Redness ENT: No: Ear pain, Ear discharge, Nose pain, Nose discharge, Nose congestion, Mouth pain, Mouth swelling, Throat pain, Throat swelling, Other Respiratory: No: Cough, Dry, Shortness of breath, SOB with exertion, Wheezing, Hemoptysis, Pleuritic Pain, Sputum, Wheezing, Other Cardiovascular: ; No: Palpitations, Orthopnea, Paroxysmal Noc. Dyspnea, Edema, Lt Headedness, Other positive: Chest Pain Gastrointestinal: No: Nausea, Vomiting, Abdominal Pain, Diarrhea, Constipation, Melena, Hematochezia, Other Genitourinary: No Dysuria, No Frequency, No Incontinence, No Hematuria, No Retention, No Other Musculoskeletal: neck pain; No: other, shoulder pain, arm pain, back pain, hand pain, leg pain, foot pain Skin: No: Rash, Lesions, Jaundice, Bruising, Other Neurological: Other (Dizziness, headache.); No: Incoordination, Change in speech, Confusion, Seizures positive: Bilateral upper and lower extremity Weakness, Numbness Vital Signs Vital Signs Date Time Temp Pulse Resp B/P (MAP) Pulse Ox O2 Delivery O2 Flow Rate FiO2 02/10/25 13:26 131/66 02/10/25 13:23 60 18 02/10/25 09:00 97.5 97 97.5 02/10/25 08:00 Room Air* 0 21 Physical Exam GENERAL: Alert and oriented x 3. No acute distress. EYES: PERRL, EOMI. Anicteric. HENT: Moist mucous membranes. LUNGS: Clear to auscultation bilaterally. CARDIOVASCULAR: Regular rate and rhythm. ABDOMEN: Soft, nontender and nondistended. EXTREMITIES: No edema. NEUROLOGIC: No focal neurological deficits. SKIN: Warm, dry. Labs/Diagnostic Data Labs Test 02/10/25 13:20 02/10/25 05:44 02/09/25 21:28 02/09/25 17:13 Range/Units Troponin I High Sensitivity 12 </=54 ng/L White Blood Count 6.1 4.4-10.8 10^3/uL Red Blood Count 5.00 4.5-5.90 10^6/uL Hemoglobin 16.7 13.5-17.5 g/dL Hematocrit 47.7 41.0-53.0 % Mean Corpuscular Volume 95.3 80.0-100.0 fL Mean Corpuscular Hemoglobin 33.3 H 28.0-32.0 pg Mean Corpuscular Hemoglobin Concent 35.0 32.0-36.0 g/dL Red Cell Distribution Width 13.0 11.8-14.3 % Platelet Count 161 140-450 10^3/uL Mean Platelet Volume 7.6 6.9-10.8 fL Neutrophils (%) (Auto) 61.3 37.0-80.0 % Lymphocytes (%) (Auto) 21.1 10.0-50.0 % Monocytes (%) (Auto) 13.3 H 0.0-12.0 % Eosinophils (%) (Auto) 4.0 0.0-7.0 % Basophils (%) (Auto) 0.3 0.0-2.0 % Neutrophils # (Auto) 3.8 1.6-8.6 10 ^3/uL Lymphocytes # (Auto) 1.3 0.4-5.4 10 ^3/uL Monocytes # (Auto) 0.8 0-1.3 10 ^3/uL Eosinophils # (Auto) 0.2 0-0.8 10 ^3/uL Basophils # (Auto) 0 0-0.2 10 ^3/uL Nucleated Red Blood Cells 0.1 % Prothrombin Time 10.9 9.3-11.8 sec Prothrombin Time INR 1.03 0.9-1.15 Sodium Level 138 136-145 mmol/L Potassium Level 3.9 3.5-5.1 mmol/L Chloride Level 104 98-107 mmol/L Carbon Dioxide Level 27 20-31 mmol/L Anion Gap 7 5-15 Blood Urea Nitrogen 16 9-23 mg/dL Creatinine 0.85 0.700-1.30 mg/dL Glomerular Filtration Rate Calc 95 >90 mL/min BUN/Creatinine Ratio 18.8 10.0-20.0 Serum Glucose 120 H 74-106 mg/dL Calcium Level 8.7 8.7-10.4 mg/dL CSF Tube Number Tube 3 CSF Appearance Clear, colorless CSF WBC 1 0-5 CUMM CSF RBC 66 H 0-5 CUMM CSF Protein (Tube 2) 73.9 H 15-45 mg/dL CSF Mononuclear Cells % CSF Polymorphonuclear Cells % CSF Glucose 60 40-70 mg/dL Phosphorus Level 3.4 2.4-5.1 mg/dL Magnesium Level 2.2 1.6-2.6 mg/dL Total Bilirubin 0.7 0.2-1.0 mg/dL Aspartate Amino Transferase (AST) 25 13-40 U/L Alanine Aminotransferase (ALT) 22 7-40 U/L Alkaline Phosphatase 89 46-116 U/L Creatine Kinase 416 H 46-171 U/L B-Type Natriuretic Peptide 90.03 0-100 pg/mL Total Protein 7.0 5.7-8.2 g/dL Albumin 4.1 3.2-4.8 g/dL Test 02/09/25 00:00 Range/Units Urine Color Light-yellow Yellow Urine Clarity Turbid H Clear Urine pH 7.0 5.0-9.0 Urine Specific [place] 1.019 1.001-1.035 Urine Protein Negative Negative Urine Ketones Negative Negative Urine Blood Trace H Negative /uL Urine Nitrite Negative Negative Urine Bilirubin Negative Negative Urine Urobilinogen Normal Negative mg/dL Urine Leukocyte Esterase Negative Negative /uL Urine RBC <1 0 - 3 /hpf Urine Microscopic WBC < 1 0-3 /HPF Urine Squamous Epithelial Cells Few <5 /hpf Urine Amorphous Crystals Few None Seen /hpf Urine Bacteria Few H None Seen /hpf Urine Glucose Normal Normal mg/dL Microbiology Date/Time Source Procedure Growth Status 02/09/25 21:28 Cerebral Spinal Fluid Gram Stain - Final Resulted 02/09/25 21:28 Cerebral Spinal Fluid CSF Culture & Gram Stain (Tube 2) M - Preliminary Resulted Assessment Chest pain. Ascending paralysis. Elevated CK level. Plan/Recommendation I agree with your ongoing assessment and care of plan. Patient has been seen by Julien Dennis NP on my behalf, him and I discussed the plan with the patient. Trend troponin. Echocardiogram. Aspirin. Nitro sublingual p.r.n. Additional plan as per the hospital course. Plan discussed with: Patient NYHA Physical activity limitations: Class3(Marked) ordinary Date of Service: February 10, 2025 Billing Provider: RITA SIN MD Cardiology Common Codes: [id number] INP/OBS CARE (High) RITA SIN MD February 10, 2025 15:03
[2025-02-10] MEDS: SENNA 8.6 MG TAB PO SCH (22:20)
[2025-02-11] VITALS (13 sets, daily range): BP systolic 98–137; BP diastolic 62–93; PULSE 58–81; RESP 14–19; TEMP 97.5–98.8; O2SAT 90–98
[2025-02-11 06:52] LABS: Anion Gap 8 (5-15); Carbon Dioxide 24 mmol/L (20-31); Chloride 106 mmol/L (98-107); Sodium 138 mmol/L (136-145)
[2025-02-11 06:53] LABS: Calcium 9.6 mg/dL (8.7-10.4)
[2025-02-11 06:58] LABS: BUN/Creatinine Ratio 18.9 (10.0-20.0); Blood Urea Nitrogen 14 mg/dL (9-23)
[2025-02-11 06:59] LABS: Glucose 111 mg/dL (74-106)
[2025-02-11 07:00] LABS: Basophils # (auto) 0 10 ^3/uL (0-0.2); Basophils % (auto) 0.4 % (0.0-2.0); Eosinophils # (auto) 0.2 10 ^3/uL (0-0.8); Eosinophils % (auto) 3.9 % (0.0-7.0); Hematocrit 50.7 % (41.0-53.0); Hemoglobin 17.7 g/dL (13.5-17.5); Lymphocytes # (auto) 1.3 10 ^3/uL (0.4-5.4); Lymphocytes % (auto) 23.6 % (10.0-50.0); Mean Corpuscular Hemoglobin 33.1 pg (28.0-32.0); Mean Corpuscular Hgb Conc. 34.9 g/dL (32.0-36.0); Mean Corpuscular Volume 94.8 fL (80.0-100.0); Monocytes # (auto) 0.8 10 ^3/uL (0-1.3); Monocytes % (auto) 13.8 % (0.0-12.0); Neutrophils # (auto) 3.2 10 ^3/uL (1.6-8.6); Neutrophils % (auto) 58.3 % (37.0-80.0); Nucleated Red Blood Cells % 0.4 %; Platelet Count (auto) 169 10^3/uL (140-450); Red Blood Cells 5.35 10^6/uL (4.5-5.90); Red Cell Distribution Width 12.7 % (11.8-14.3); White Blood Cell 5.4 10^3/uL (4.4-10.8)
--- NOTE | 2025-02-11 08:04 | DVHINCON2 ---
Neuro Consultation Date of Consultation Date: 02/11/25 History of Present Illness History of Present Illness: Bassam Aguilar is a 69 year old male who presents with weakness. Patient gone to MRI for 1-2 hours. Girlfriend at bed side feels symptoms have been going on for 2-3 months but is not sure. Review of Systems Review of Systems: Review of Systems: 12 point review of systems is negative unless stated in HPI. Family History Patient History: Patient reports no known family medical history. Allergies and Medications Allergies: Coded Allergies: NO KNOWN ALLERGIES (Unverified , 02/09/25) Home Meds: No Active Prescriptions or Reported Meds Current Medications: Current Medications Medications (Trade) Dose Ordered Sig/Jeremiah Route PRN Reason Start Time Stop Time Status Last Admin Immune Globulin 500 ml @ 30 mls/hr DAILY@1200 IV 02/12/25 12:00 02/15/25 04:39 02/11/25 15:51 General Examination Last Vital sign Vital Signs Date Time Temp Pulse Resp B/P (MAP) Pulse Ox O2 Delivery O2 Flow Rate FiO2 02/13/25 05:00 97.5 68 19 154/88 (110) 98 97.5 02/12/25 20:00 Room Air* 0 21 General Exam: General Examination: General: No apparent distress, appears comfortable. Cooperative HEENT: Normocephalic, atraumatic. Supple neck. No oropharynx lesion or exudate noted. Extremities: No noted edema or cyanosis Skin: No noted rashes or jaundice. Neuro Exam: pt in MRI Labs: Laboratory Tests Test 02/09/25 00:00 02/09/25 17:13 02/09/25 18:11 02/09/25 20:09 Range/Units Urine Color Light-yellow Yellow Urine Clarity Turbid H Clear Urine pH 7.0 5.0-9.0 Urine Specific [place] 1.019 1.001-1.035 Urine Protein Negative Negative Urine Ketones Negative Negative Urine Blood Trace H Negative /uL Urine Nitrite Negative Negative Urine Bilirubin Negative Negative Urine Urobilinogen Normal Negative mg/dL Urine Leukocyte Esterase Negative Negative /uL Urine RBC <1 0 - 3 /hpf Urine Microscopic WBC < 1 0-3 /HPF Urine Squamous Epithelial Cells Few <5 /hpf Urine Amorphous Crystals Few None Seen /hpf Urine Bacteria Few H None Seen /hpf Urine Glucose Normal Normal mg/dL White Blood Count 5.4 4.4-10.8 10^3/uL Red Blood Count 5.27 4.5-5.90 10^6/uL Hemoglobin 17.3 13.5-17.5 g/dL Hematocrit 50.2 41.0-53.0 % Mean Corpuscular Volume 95.2 80.0-100.0 fL Mean Corpuscular Hemoglobin 32.9 H 28.0-32.0 pg Mean Corpuscular Hemoglobin Concent 34.6 32.0-36.0 g/dL Red Cell Distribution Width 13.1 11.8-14.3 % Platelet Count 183 140-450 10^3/uL Mean Platelet Volume 7.8 6.9-10.8 fL Neutrophils (%) (Auto) 54.7 37.0-80.0 % Lymphocytes (%) (Auto) 28.8 10.0-50.0 % Monocytes (%) (Auto) 11.4 0.0-12.0 % Eosinophils (%) (Auto) 4.6 0.0-7.0 % Basophils (%) (Auto) 0.5 0.0-2.0 % Neutrophils # (Auto) 2.9 1.6-8.6 10 ^3/uL Lymphocytes # (Auto) 1.5 0.4-5.4 10 ^3/uL Monocytes # (Auto) 0.6 0-1.3 10 ^3/uL Eosinophils # (Auto) 0.2 0-0.8 10 ^3/uL Basophils # (Auto) 0 0-0.2 10 ^3/uL Nucleated Red Blood Cells 0.2 % Sodium Level 137 136-145 mmol/L Potassium Level 4.0 3.5-5.1 mmol/L Chloride Level 106 98-107 mmol/L Carbon Dioxide Level 24 20-31 mmol/L Anion Gap 7 5-15 Blood Urea Nitrogen 19 9-23 mg/dL Creatinine 0.81 0.700-1.30 mg/dL Glomerular Filtration Rate Calc 97 >90 mL/min BUN/Creatinine Ratio 23.5 H 10.0-20.0 Serum Glucose 136 H 74-106 mg/dL Calcium Level 9.5 8.7-10.4 mg/dL Phosphorus Level 3.4 2.4-5.1 mg/dL Magnesium Level 2.2 1.6-2.6 mg/dL Total Bilirubin 0.7 0.2-1.0 mg/dL Aspartate Amino Transferase (AST) 25 13-40 U/L Alanine Aminotransferase (ALT) 22 7-40 U/L Alkaline Phosphatase 89 46-116 U/L Creatine Kinase 416 H 46-171 U/L Troponin I High Sensitivity 13 14 15 </=54 ng/L B-Type Natriuretic Peptide 90.03 0-100 pg/mL Total Protein 7.0 5.7-8.2 g/dL Albumin 4.1 3.2-4.8 g/dL Test 02/09/25 21:28 02/10/25 05:44 02/10/25 13:20 02/10/25 15:20 Range/Units CSF Tube Number Tube 3 CSF Appearance Clear, colorless CSF WBC 1 0-5 CUMM CSF RBC 66 H 0-5 CUMM CSF Protein (Tube 2) 73.9 H 15-45 mg/dL CSF Mononuclear Cells % CSF Polymorphonuclear Cells % CSF Glucose 60 40-70 mg/dL White Blood Count 6.1 4.4-10.8 10^3/uL Red Blood Count 5.00 4.5-5.90 10^6/uL Hemoglobin 16.7 13.5-17.5 g/dL Hematocrit 47.7 41.0-53.0 % Mean Corpuscular Volume 95.3 80.0-100.0 fL Mean Corpuscular Hemoglobin 33.3 H 28.0-32.0 pg Mean Corpuscular Hemoglobin Concent 35.0 32.0-36.0 g/dL Red Cell Distribution Width 13.0 11.8-14.3 % Platelet Count 161 140-450 10^3/uL Mean Platelet Volume 7.6 6.9-10.8 fL Neutrophils (%) (Auto) 61.3 37.0-80.0 % Lymphocytes (%) (Auto) 21.1 10.0-50.0 % Monocytes (%) (Auto) 13.3 H 0.0-12.0 % Eosinophils (%) (Auto) 4.0 0.0-7.0 % Basophils (%) (Auto) 0.3 0.0-2.0 % Neutrophils # (Auto) 3.8 1.6-8.6 10 ^3/uL Lymphocytes # (Auto) 1.3 0.4-5.4 10 ^3/uL Monocytes # (Auto) 0.8 0-1.3 10 ^3/uL Eosinophils # (Auto) 0.2 0-0.8 10 ^3/uL Basophils # (Auto) 0 0-0.2 10 ^3/uL Nucleated Red Blood Cells 0.1 % Prothrombin Time 10.9 9.3-11.8 sec Prothrombin Time INR 1.03 0.9-1.15 Sodium Level 138 136-145 mmol/L Potassium Level 3.9 3.5-5.1 mmol/L Chloride Level 104 98-107 mmol/L Carbon Dioxide Level 27 20-31 mmol/L Anion Gap 7 5-15 Blood Urea Nitrogen 16 9-23 mg/dL Creatinine 0.85 0.700-1.30 mg/dL Glomerular Filtration Rate Calc 95 >90 mL/min BUN/Creatinine Ratio 18.8 10.0-20.0 Serum Glucose 120 H 74-106 mg/dL Calcium Level 8.7 8.7-10.4 mg/dL Creatine Kinase MB 8.0 0.0-10.4 ng/mL Troponin I High Sensitivity 13 12 11 </=54 ng/L D-Dimer, Quantitative 0.91 H 0.0-0.49 mg/L FEU Test 02/11/25 06:07 02/12/25 06:18 Range/Units White Blood Count 5.4 5.2 4.4-10.8 10^3/uL Red Blood Count 5.35 5.61 4.5-5.90 10^6/uL Hemoglobin 17.7 H 18.7 H 13.5-17.5 g/dL Hematocrit 50.7 52.8 41.0-53.0 % Mean Corpuscular Volume 94.8 94.0 80.0-100.0 fL Mean Corpuscular Hemoglobin 33.1 H 33.3 H 28.0-32.0 pg Mean Corpuscular Hemoglobin Concent 34.9 35.5 32.0-36.0 g/dL Red Cell Distribution Width 12.7 13.0 11.8-14.3 % Platelet Count 169 163 140-450 10^3/uL Mean Platelet Volume 7.9 8.1 6.9-10.8 fL Neutrophils (%) (Auto) 58.3 70.0 37.0-80.0 % Lymphocytes (%) (Auto) 23.6 15.7 10.0-50.0 % Monocytes (%) (Auto) 13.8 H 11.0 0.0-12.0 % Eosinophils (%) (Auto) 3.9 2.8 0.0-7.0 % Basophils (%) (Auto) 0.4 0.5 0.0-2.0 % Neutrophils # (Auto) 3.2 3.7 1.6-8.6 10 ^3/uL Lymphocytes # (Auto) 1.3 0.8 0.4-5.4 10 ^3/uL Monocytes # (Auto) 0.8 0.6 0-1.3 10 ^3/uL Eosinophils # (Auto) 0.2 0.1 0-0.8 10 ^3/uL Basophils # (Auto) 0 0 0-0.2 10 ^3/uL Nucleated Red Blood Cells 0.4 0.1 % Sodium Level 138 137 136-145 mmol/L Potassium Level 4.0 4.1 3.5-5.1 mmol/L Chloride Level 106 104 98-107 mmol/L Carbon Dioxide Level 24 25 20-31 mmol/L Anion Gap 8 8 5-15 Blood Urea Nitrogen 14 15 9-23 mg/dL Creatinine 0.74 0.76 0.700-1.30 mg/dL Glomerular Filtration Rate Calc 99 99 >90 mL/min BUN/Creatinine Ratio 18.9 19.7 10.0-20.0 Serum Glucose 111 H 107 H 74-106 mg/dL Calcium Level 9.6 9.7 8.7-10.4 mg/dL Vitamin B12 Level 270 211-911 pg/mL Folic Acid 12.00 >5.38 ng/mL Assessment/Plan Assessment and Plan:Bassam Aguilar is a 69 year old male who presents with 1. Possible GBS - pt reports onset of ascending motor > sensory parlyasis since 01/2025 (>6 weeks). /10 CSF WBC 1, RBC 66, Protein 73, Glucose 60. 5/10 Labwork CK 416. Concern is for GBS vs CIDP (too early to diagnosis) - IVIG 0.66 gm /kg daily STAT (spoke to pharmacy, left message to Dr. Leary for approval) - MRI Brain w/wo contrast + MRI C Spine w/wo contrast + MRI T spine w/wo contra st - labwork - If symptoms continue, recommend outpt EMG/NCS of UE/LE Plan discussed with: Spouse MONICA SOLOMON MD February 11, 2025 08:04
[2025-02-11] MEDS ORDERED: diphenhdrAMINE HCL 50 MG/1 ML VL IV PRN (08:15)
[2025-02-11] MEDS: VERAPAMIL 2.5MG/ML INJ 2ML VIAL IV ONE (10:28)
[2025-02-11] MEDS: HEPARIN SODIUM (PORCINE) 5000 UNITS/ML 1ML VIAL ONE (10:28)
[2025-02-11] MEDS: ANGIOMAX 250 MG VIAL IV ONE (10:28)
[2025-02-11] MEDS: SODIUM CHL 0.9% 0 ML ONE (10:29)
[2025-02-11] MEDS: fentaNYL CITRATE 100 MCG/2 ML VL ONE (10:29)
[2025-02-11] MEDS: MIDAZOLAM HCL 2MG/2ML 2ml VIAL (1mg/ml) ONE (10:29)
[2025-02-11] MEDS: IODIXANOL 320MG/ML 100ML BTL IV ONE (10:29)
[2025-02-11] MEDS: LIDOCAINE 2%HCL (LOCAL ANESTH.) INJ 20ML MDV ONE (10:34)
--- NOTE | 2025-02-11 11:11 | DVHPN2 ---
Progress Note Date Seen: February 11, 2025 Medical Necessity Reason Pt with a Central, PICC or Fol: No Subjective Patient reports: Feels better Objective vital signs Vital Sign Date Time Temp Pulse Resp B/P (MAP) Pulse Ox O2 Delivery O2 Flow Rate FiO2 02/11/25 08:30 97.5 68 18 119/75 (90) 92 97.5 02/10/25 20:00 Room Air* 0 21 Total Intake and Output 02/10/25 02/10/25 02/11/25 15:00 23:00 07:00 Intake Total 900 ml Output Total 1025 ml 1800 ml Balance -125 ml -1800 ml medications Current Medications Medications Dose Ordered Sig/Jeremiah Route Start Time Stop Time Status Last Admin Dose Admin Ondansetron HCl 4 mg Q6HPRN PRN IV 02/09/25 22:45 Acetaminophen 650 mg Q6HPRN PRN PO 02/09/25 22:45 02/10/25 16:41 650 MG Nitroglycerin 0.4 mg Q5MINP PRN SL 02/10/25 12:45 02/10/25 13:26 0.4 MG Morphine Sulfate 2 mg [id number] PRN IV 02/10/25 12:45 02/10/25 13:23 2 MG Docusate Sodium 100 mg BIDPRN PRN PO 02/10/25 14:30 Sennosides 17.2 mg HS PO 02/10/25 22:00 02/10/25 22:20 17.2 MG Acetaminophen 650 mg PRN PRN PO 02/11/25 08:15 Diphenhydramine HCl 25 mg PRN PRN IV 02/11/25 08:15 Immune Globulin 500 ml @ 0 mls/hr DAILY@1200 IV 02/11/25 12:00 02/13/25 12:01 Examination: GENERAL:Abnormal, HEENT:Abnormal, LUNGS:Abnormal, CVS:Abnormal, ABDOMEN:Abnormal laboratory and microbiology Laboratory Tests 02/11/25 06:07 Test 02/11/25 06:07 Range/Units Serum Glucose 111 H 74-106 mg/dL Microbiology Date/Time Source Procedure Growth Status 02/09/25 21:28 Cerebral Spinal Fluid Gram Stain - Final Resulted 02/09/25 21:28 Cerebral Spinal Fluid CSF Culture & Gram Stain (Tube 2) M - Preliminary Resulted 02/09/25 17:13 Blood Blood Culture - Preliminary NO GROWTH AFTER 24 HOURS OF INCUBATION. Resulted Problem List/Assessment/Plan Problem List/Assessment/Plan r/o GBS r/o cervical stenosis chest pain/ acs C no severe cad diastolic dysfunction fu neuro recs Plan discussed with: Patient My Orders My Orders Orders - HANSA NOGUEIRA MD Procedure Category Date Status Time Cl Left Heart Cath CL 02/11/25 Taken 07:43 Date of Service: February 11, 2025 Billing Provider: HANSA NOGUEIRA MD Common Visit Codes: NOT BILLABLE HANSA NOGUEIRA MD February 11, 2025 11:11
--- NOTE | 2025-02-11 11:13 | DVHOP2 ---
Operative Report Operative Report CARDIAC CORE FEEDER PROCEDURE REPORT [place], [place] Date of Service: 02/11/25 Inventory Planner: Hansa Nogueira MD PROCEDURES PERFORMED: Coronary angiogram, left heart catheterization, conscious sedation administration and supervision, less than 15 minutes; fluoroscopy use and interpretation. PREOPERATIVE DIAGNOSES: ACS POSTOP DIAGNOSIS: diastolic dysfunction DESCRIPTION OF PROCEDURE: The patient or appropriate family signed informed consent understanding the risks, benefits and alternatives of the procedure, they wished to proceed. The patient was brought to the cardiac cath lab tech in n.p.o. state. The patient was prepped in a sterile fashion. Sedation was used per cardiac cath protocol. I administered 2 mL of 2% lidocaine to the right wrist. With an antegrade front wall puncture. I cannulated the right radial artery and placed a 6-[place] Glidesheath slender. Next, an intra-arterial spasmolytic was administered. Next, a - 6French [place]wood catheter and XXXXX guide and were used for coronary angiogram and LVEDP measurement and pressure pullback. At the completion of procedure, all guides and wires were removed, and there were no immediate complications. 4000 U of IV heparin given. FINDINGS: RCA: Moderate vessel off the right sinus of Valsalva, there is no severe flow limiting stenosis. luggish flow suggestive of microvascular disease LEFT MAIN: Moderate size left main, it bifurcates into LAD and circumflex. no stenosis. CIRCUMFLEX: Moderate caliber vessel coming off the left main with no flow limiting stenosis. LAD: LAD is a moderate caliber vessel coming of the left main. no stenosis. sluggish flow suggestive of microvascular disease LVEDP of 12 mmhg CONCLUSIONS: 1. NO severe epicardial CAD PLAN: Aggressive risk factor modification and medical management for the patient. HANSA NOGUEIRA MD February 11, 2025 11:13
[2025-02-11] MEDS ORDERED: IMMUNE GLOBULIN 10% IV SCH (12:00)
--- NOTE | 2025-02-11 13:41 | ECG ---
[facility] Test Date: 2025-02-10 Test Time: 13:06:18 Pat Name: NITIN HERNANDEZDepartment: Respiratoy Room: 0220T A Gender: M Labeler: : 1955 Requested By: AARON CESPEDES Order Number: [id number] Reading MD: Randy Adams Measurements Intervals [place] Rate: 58 P: 0 CO: 0 QRS: -42 QRSD: 113 T: 232 QT: 433 QTc: 426 Interpretive Statements Atrial fibrillation Borderline IVCD with LAD Probable anterior infarct, age indeterminate Lateral leads are also involved Electronically Signed On 02-13-2025 11:57:32 PDT by Randy Adams Please click the below link to view image of tracing.
--- NOTE | 2025-02-11 14:47 | DVH ---
MRI CERVICAL SPINE CLINICAL HISTORY: r/o GBS TECHNIQUE: Multiplanar, multisequence MR images of the cervical spine with and without contrast. 20 cc of christine can contrast from a prefilled syringe was administered intravenously. 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 There is no pathologic enhancement. The craniocervi godwin junction appears within normal limits. The cervical vertebral bodies demonstrate normal height an d marrow signal.. There is straightening of the cervical lordosis. There is disc desiccation througho ut with moderate disc space narrowing / loss at multiple levels. There is multilevel facet arthropath y in the upper cervical spine. At C2-C3 there is bilateral facet arthropathy, [id number]. There is no canal stenosis. There is mild left neural foraminal stenosis. At C3-C4 there is posterior disc osteophyte complex and bilateral uncovertebral and facet arthropathy . There is severe spinal canal stenosis. There is severe bilateral neural foraminal stenosis. At C4-C5 there is posterior disc osteophyte complex and bilateral uncovertebral and facet arthropathy . There is moderate spinal canal stenosis. There is moderate to severe left and moderate right neural foraminal stenosis. At C5-C6 there is disc bulge eccentric to the right. There is no canal stenosis. There is moderate b ilateral neural foraminal stenosis, [id number]-left. At C6-C7 there is posterior disc osteophyte complex and bilateral uncovertebral arthropathy, left-gre [id number]. There is no spinal canal stenosis. There is moderate to severe left and moderate ri ght neural foraminal stenosis. At C7-T1 there is disc bulge eccentric to the left and bilateral facet arthropathy. There is no lacey l stenosis. There is moderate left and mild right neural foraminal stenosis. IMPRESSION: 1. Straightening of the cervical spine with multilevel advanced degenerative changes as described lev els above, worst at C3-C4. 2. There is severe spinal canal and bilateral neural foraminal stenosis at C3-C4. 3. There is moderate spinal canal and moderate to severe left and moderate right neural foraminal maritza nosis at C4-C5. 4. 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 HS:Y
--- NOTE | 2025-02-11 14:52 | DVH ---
CLINICAL HISTORY: Rule out Guillain-Doswell syndrome. TECHNIQUE: Multi sequence multi planar MRI images of the thoracic spine were obtained prior to and a fter the administration of 10 mL Clariscan contrast. COMPARISON: CT THORACIC SPINE WO W on DOS: 02/09/25 FINDINGS: Vertebral body alignment is within normal limits. Multilevel small Schmorl's nodes are see n, some of which demonstrate adjacent t2/stir hyperintense signal suggesting acute or subacute Schmor l's nodes. Vertebral body heights are maintained. Posterior elements are intact. No acute fracture. No focal suspicious marrow signal abnormality identified. Disc desiccation throughout the thoracic sp ine. Mild disc bulges are seen at T2-T3, T3-T4, and T4-T5, without significant spinal canal stenosis. Multilevel facet hypertrophy with areas of [id number] neural foraminal stenosis. Spinal cord i s normal in signal intensity and morphology of the precontrast images. On the axial postcontrast imag es, there appears to be enhancement in the spinal cord at the T7 level, although this is favored to b e artifact, as it is not correlated on the sagittal postcontrast images in this location and there is no signal abnormality on the precontrast images in the spinal cord at this location. Otherwise no en hancement in the thoracic spinal cord. No abnormal epidural or leptomeningeal enhancement. No definit e thickening or enhancement of the visualized spinal nerve roots in the thoracic spine. IMPRESSION: 1. Apparent enhancement in the spinal cord at the T7 level on the axial images is favored to be artif act as described above. 2. Otherwise no abnormal postcontrast enhancement. No thickening or enhancement of the visualized spi nal nerve roots in the thoracic spine to suggest Guillain-Doswell syndrome, although correlation with c linical findings is needed. 3. 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 4. Additional findings as described above.
--- NOTE | 2025-02-11 14:53 | DVH ---
MRI BRAIN WITH CONTRAST CLINICAL HISTORY: R/O GBS TECHNIQUE: Multiplanar multisequence images of the brain were obtained prior to and following intravenous admini stration of contrast. 20cc of Clariscan contrast from a prefilled syringe was administered intravenou sly. Comparison: CT head 02/09/2025 FINDINGS: There is no restricted diffusion. The esparza and white matter signal is age appropriate. There is no pa thologic enhancement. There is no evidence of hemorrhage, mass, mass effect or midline shift. There i s no hydrocephalus or extra-axial fluid collection. The visualized intracranial vasculature demonstra steven appropriate flow-voids. The midline structures appear unremarkable. The craniocervical junction i s within normal limits. There are degenerative changes in the visualized upper cervical spine with se sarah canal stenosis at the C3-C4 level. The calvarium demonstrates normal marrow signal. The paranasa l sinuses and mastoid air cells are clear. IMPRESSION: 1. There is no acute intracranial process. 2. Degenerative changes in the visualized upper cervical spine with severe spinal canal stenosis at t he C3-C4 level. HS:Y
[2025-02-11] MEDS: IMMUNE GLOBULIN 10% IV SCH (15:51)
--- NOTE | 2025-02-11 16:33 | DVHPN2 ---
Subjective Overnight events noted. The patient underwent left heart catheterization which shows no evidence of any coronary artery disease. 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 ascending paralysis Medications Current Medications Medications Dose Ordered Sig/Jeremiah Route Start Time Stop Time Status Last Admin Dose Admin Ondansetron HCl 4 mg Q6HPRN PRN IV 02/09/25 22:45 Acetaminophen 650 mg Q6HPRN PRN PO 02/09/25 22:45 02/10/25 16:41 650 MG Nitroglycerin 0.4 mg Q5MINP PRN SL 02/10/25 12:45 02/10/25 13:26 0.4 MG Morphine Sulfate 2 mg [id number] PRN IV 02/10/25 12:45 02/10/25 13:23 2 MG Docusate Sodium 100 mg BIDPRN PRN PO 02/10/25 14:30 Sennosides 17.2 mg HS PO 02/10/25 22:00 02/10/25 22:20 17.2 MG Acetaminophen 650 mg PRN PRN PO 02/11/25 08:15 Diphenhydramine HCl 25 mg PRN PRN IV 02/11/25 08:15 Immune Globulin 500 ml @ 30 mls/hr DAILY@1200 IV 02/12/25 12:00 02/15/25 04:39 02/11/25 15:51 30 MLS/HR Laboratory Results Laboratory Tests 02/11/25 06:07 Chemistry Test 02/11/25 06:07 Calcium Level 9.6 mg/dL (8.7-10.4) Urinalysis Test 02/09/25 00:00 Urine Color Light-yellow (Yellow) Urine Clarity Turbid (Clear) H Urine pH 7.0 (5.0-9.0) Urine Specific [place] 1.019 (1.001-1.035) Urine Protein Negative (Negative) Urine Ketones Negative (Negative) Urine Blood Trace /uL (Negative) H Urine Nitrite Negative (Negative) Urine Bilirubin Negative (Negative) Urine Urobilinogen Normal mg/dL (Negative) Urine Leukocyte Esterase Negative /uL (Negative) Urine RBC <1 /hpf (0 - 3) Urine Microscopic WBC < 1 /HPF (0-3) Urine Squamous Epithelial Cells Few /hpf (<5) Urine Amorphous Crystals Few /hpf (None Seen) Urine Bacteria Few /hpf (None Seen) H Urine Glucose Normal mg/dL (Normal) Microbiology Microbiology Date/Time Source Procedure Growth Status 02/09/25 21:28 Cerebral Spinal Fluid Gram Stain - Final Resulted 02/09/25 21:28 Cerebral Spinal Fluid CSF Culture & Gram Stain (Tube 2) M - Preliminary Resulted 02/09/25 17:13 Blood Blood Culture - Preliminary NO GROWTH AFTER 24 HOURS OF INCUBATION. Resulted Assessment/Plan Assessment/Plan 69-year-old male with a no significant past medical history who initially presented to the hospital with generalized weakness starting from the left lower extremity then bilateral lower extremity along with sensory diabetes all the way up to the nipple level found to have 1. 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 Rule out chronic inflammatory demyelinating neuropathy 3. Chest pain ruled out ND, negative left heart catheterization 4. Poor historian -IVIG as per recommendation by Neurology, plan of care discussed with the patient who understand and agreeable to plan. Plan discussed with: Patient My Orders Orders - AARON CESPEDES MD Procedure Category Date Status Time Cover Wound With Foam SONIDO 02/10/25 In Process Dressing 17:16 Date of Service: February 11, 2025 Billing Provider: AARON CESPEDES MD Common Visit Codes: NOT BILLABLE AARON CESPEDES MD February 11, 2025 16:33
--- NOTE | 2025-02-11 22:27 | DVHPN2 ---
Progress Note - Dictate Date Seen: February 11, 2025 Medical Necessity Reason Pt with a Central, PICC or Fol: No Subjective Patient was seen and evaluated in follow up. Patient underwent coronary angiogram, left heart catheterization which showed diastolic dysfunction. No severe epicardial CAD. MRI brain shows no acute intracranial process. Degenerative changes in the visualized upper cervical spine with severe spinal canal stenosis at the C3-C4 level. MRI C-spine shows straightening of the cervical spine with multilevel advanced degenerative changes as described levels above, worst at C3-C4. There is severe spinal canal and bilateral neural foraminal stenosis at C3-C4. There is moderate spinal canal and moderate to severe left and moderate right neural foraminal stenosis at C4-C5. 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 MRI T-spine showed apparent enhancement in the spinal cord at the T7 level on the axial images is favored to be artifact. Otherwise no abnormal postcontrast enhancement. No thickening or enhancement of the visualized spinal nerve roots in the thoracic spine to suggest Guillain-[place] syndrome. 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 Telemetry reviewed. vital signs Vital Sign Date Time Temp Pulse Resp B/P (MAP) Pulse Ox O2 Delivery O2 Flow Rate FiO2 02/11/25 16:30 98.2 69 18 108/67 (81) 90 98.2 02/11/25 08:00 Room Air* 0 21 Total Intake and Output 02/10/25 02/10/25 02/11/25 15:00 23:00 07:00 Intake Total 900 ml Output Total 1025 ml 1800 ml Balance -125 ml -1800 ml medications Current Medications Medications Dose Ordered Sig/Jeremiah Route Start Time Stop Time Status Last Admin Dose Admin Ondansetron HCl 4 mg Q6HPRN PRN IV 02/09/25 22:45 Acetaminophen 650 mg Q6HPRN PRN PO 02/09/25 22:45 02/10/25 16:41 650 MG Nitroglycerin 0.4 mg Q5MINP PRN SL 02/10/25 12:45 02/10/25 13:26 0.4 MG Morphine Sulfate 2 mg [id number] PRN IV 02/10/25 12:45 02/10/25 13:23 2 MG Docusate Sodium 100 mg BIDPRN PRN PO 02/10/25 14:30 Sennosides 17.2 mg HS PO 02/10/25 22:00 02/11/25 21:43 17.2 MG Acetaminophen 650 mg PRN PRN PO 02/11/25 08:15 Diphenhydramine HCl 25 mg PRN PRN IV 02/11/25 08:15 Immune Globulin 500 ml @ 30 mls/hr DAILY@1200 IV 02/12/25 12:00 02/15/25 04:39 02/11/25 15:51 30 MLS/HR objective GENERAL: Alert and oriented x 3. No acute distress. EYES: PERRL, EOMI. Anicteric. HENT: Moist mucous membranes. LUNGS: Clear to auscultation bilaterally. CARDIOVASCULAR: Regular rate and rhythm. ABDOMEN: Soft, nontender and nondistended. EXTREMITIES: No edema. NEUROLOGIC: No focal neurological deficits. SKIN: Warm, dry. laboratory and microbiology Laboratory Tests 02/11/25 06:07 Test 02/11/25 06:07 Range/Units Serum Glucose 111 H 74-106 mg/dL Problem List Chest pain. Ascending paralysis. Elevated CK level. Assessment/Plan Continued all current supportive medical care. Morphine for pain management. Nitro sublingual p.r.n. Additional plan as per the hospital course. Plan discussed with: Patient RIAT SIN MD February 11, 2025 22:27
[2025-02-12] VITALS (8 sets, daily range): BP systolic 103–132; BP diastolic 61–78; PULSE 61–97; RESP 17–20; TEMP 96.9–98.7; O2SAT 92–97
[2025-02-12 07:16] LABS: Anion Gap 8 (5-15); Calcium 9.7 mg/dL (8.7-10.4); Carbon Dioxide 25 mmol/L (20-31); Chloride 104 mmol/L (98-107); Potassium 4.1 mmol/L (3.5-5.1); Sodium 137 mmol/L (136-145)
[2025-02-12 07:20] LABS: Basophils # (auto) 0 10 ^3/uL (0-0.2); Hemoglobin 18.7 g/dL (13.5-17.5); Monocytes # (auto) 0.6 10 ^3/uL (0-1.3)
[2025-02-12 07:22] LABS: BUN/Creatinine Ratio 19.7 (10.0-20.0); Blood Urea Nitrogen 15 mg/dL (9-23); Glucose 107 mg/dL (74-106)
[2025-02-12 07:23] LABS: Basophils % (auto) 0.5 % (0.0-2.0); Eosinophils # (auto) 0.1 10 ^3/uL (0-0.8); Eosinophils % (auto) 2.8 % (0.0-7.0); Hematocrit 52.8 % (41.0-53.0); Lymphocytes # (auto) 0.8 10 ^3/uL (0.4-5.4); Lymphocytes % (auto) 15.7 % (10.0-50.0); Mean Corpuscular Hemoglobin 33.3 pg (28.0-32.0); Mean Corpuscular Hgb Conc. 35.5 g/dL (32.0-36.0); Neutrophils # (auto) 3.7 10 ^3/uL (1.6-8.6); Nucleated Red Blood Cells % 0.1 %; Platelet Count (auto) 163 10^3/uL (140-450); Red Blood Cells 5.61 10^6/uL (4.5-5.90); White Blood Cell 5.2 10^3/uL (4.4-10.8)
--- NOTE | 2025-02-12 16:28 | DVHPN2 ---
Subjective Overnight events noted. The patient underwent left heart catheterization which shows no evidence of any coronary artery disease. 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 patient has a both motor and sensory deficit ascending paralysis Medications Current Medications Medications Dose Ordered Sig/Jeremiah Route Start Time Stop Time Status Last Admin Dose Admin Ondansetron HCl 4 mg Q6HPRN PRN IV 02/09/25 22:45 Acetaminophen 650 mg Q6HPRN PRN PO 02/09/25 22:45 02/10/25 16:41 650 MG Nitroglycerin 0.4 mg Q5MINP PRN SL 02/10/25 12:45 02/10/25 13:26 0.4 MG Morphine Sulfate 2 mg [id number] PRN IV 02/10/25 12:45 02/10/25 13:23 2 MG Docusate Sodium 100 mg BIDPRN PRN PO 02/10/25 14:30 Sennosides 17.2 mg HS PO 02/10/25 22:00 02/11/25 21:43 17.2 MG Acetaminophen 650 mg PRN PRN PO 02/11/25 08:15 Diphenhydramine HCl 25 mg PRN PRN IV 02/11/25 08:15 Immune Globulin 500 ml @ 30 mls/hr DAILY@1200 IV 02/12/25 12:00 02/15/25 04:39 02/11/25 15:51 30 MLS/HR Laboratory Results Laboratory Tests 02/12/25 06:18 Chemistry Test 02/12/25 06:18 Calcium Level 9.7 mg/dL (8.7-10.4) Urinalysis Test 02/09/25 00:00 Urine Color Light-yellow (Yellow) Urine Clarity Turbid (Clear) H Urine pH 7.0 (5.0-9.0) Urine Specific [place] 1.019 (1.001-1.035) Urine Protein Negative (Negative) Urine Ketones Negative (Negative) Urine Blood Trace /uL (Negative) H Urine Nitrite Negative (Negative) Urine Bilirubin Negative (Negative) Urine Urobilinogen Normal mg/dL (Negative) Urine Leukocyte Esterase Negative /uL (Negative) Urine RBC <1 /hpf (0 - 3) Urine Microscopic WBC < 1 /HPF (0-3) Urine Squamous Epithelial Cells Few /hpf (<5) Urine Amorphous Crystals Few /hpf (None Seen) Urine Bacteria Few /hpf (None Seen) H Urine Glucose Normal mg/dL (Normal) Microbiology Microbiology Date/Time Source Procedure Growth Status 02/09/25 21:28 Cerebral Spinal Fluid Gram Stain - Final Resulted 02/09/25 21:28 Cerebral Spinal Fluid CSF Culture & Gram Stain (Tube 2) M - Preliminary Resulted 02/09/25 17:13 Blood Blood Culture - Preliminary NO GROWTH AFTER 48 HOURS OF INCUBATION. Resulted Assessment/Plan Assessment/Plan 69-year-old male with a no significant past medical history who initially presented to the hospital with generalized weakness starting from the left lower extremity then bilateral lower extremity along with sensory diabetes all the way up to the nipple level found to have 1. 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 Rule out chronic inflammatory demyelinating neuropathy 3. Chest pain ruled out MA, negative left heart catheterization 4. Poor historian -IVIG as per recommendation by Neurology, plan of care discussed with the patient who understand and agreeable to plan. Plan discussed with: Patient Date of Service: February 12, 2025 Billing Provider: AARON CESPEDES MD Common Visit Codes: NOT BILLABLE AARON CESPEDES MD February 12, 2025 16:28
--- NOTE | 2025-02-12 22:37 | DVHPN2 ---
Progress Note - Dictate Date Seen: February 12, 2025 Medical Necessity Reason Pt with a Central, PICC or Fol: No Subjective Patient was seen and evaluated in follow up. No overnight events. Patient denies any pain or discomfort. BS in the low 100s. Prelim CSF shows no growth. Telemetry reviewed. vital signs Vital Sign Date Time Temp Pulse Resp B/P (MAP) Pulse Ox O2 Delivery O2 Flow Rate FiO2 02/12/25 21:00 98.7 65 18 111/61 (78) 95 98.7 02/12/25 08:00 Room Air* 0 21 Total Intake and Output 02/11/25 02/11/25 02/12/25 15:00 23:00 07:00 Intake Total 90 ml 510 ml Output Total 250 ml 525 ml 1900 ml Balance -250 ml -435 ml -1390 ml medications Current Medications Medications Dose Ordered Sig/Jeremiah Route Start Time Stop Time Status Last Admin Dose Admin Ondansetron HCl 4 mg Q6HPRN PRN IV 02/09/25 22:45 Acetaminophen 650 mg Q6HPRN PRN PO 02/09/25 22:45 02/10/25 16:41 650 MG Nitroglycerin 0.4 mg Q5MINP PRN SL 02/10/25 12:45 02/10/25 13:26 0.4 MG Morphine Sulfate 2 mg [id number] PRN IV 02/10/25 12:45 02/10/25 13:23 2 MG Docusate Sodium 100 mg BIDPRN PRN PO 02/10/25 14:30 Sennosides 17.2 mg HS PO 02/10/25 22:00 02/11/25 21:43 17.2 MG Acetaminophen 650 mg PRN PRN PO 02/11/25 08:15 Diphenhydramine HCl 25 mg PRN PRN IV 02/11/25 08:15 Immune Globulin 500 ml @ 30 mls/hr DAILY@1200 IV 02/12/25 12:00 02/15/25 04:39 02/11/25 15:51 30 MLS/HR objective GENERAL: Alert and oriented x 3. No acute distress. EYES: PERRL, EOMI. Anicteric. HENT: Moist mucous membranes. LUNGS: Clear to auscultation bilaterally. CARDIOVASCULAR: Regular rate and rhythm. ABDOMEN: Soft, nontender and nondistended. EXTREMITIES: No edema. NEUROLOGIC: No focal neurological deficits. SKIN: Warm, dry. laboratory and microbiology Laboratory Tests 02/12/25 06:18 Test 02/12/25 06:18 Range/Units Serum Glucose 107 H 74-106 mg/dL Problem List Chest pain. Ascending paralysis. Elevated CK level. Assessment/Plan Continued all current supportive medical care. Morphine for pain management. Nitro sublingual p.r.n. Additional plan as per the hospital course. Plan discussed with: Patient RITA SIN MD February 12, 2025 22:37
[2025-02-13] VITALS (8 sets, daily range): BP systolic 94–154; BP diastolic 60–88; PULSE 7–72; RESP 17–21; TEMP 97.5–98.7; O2SAT 94–100
--- NOTE | 2025-02-13 08:05 | DVHPN2 ---
Neuro Progress Note Todays Date Date of Progress Note: 02/13/25 Date of Admission Date of Admission: Date of Admission: February 09, 2025 at 22:34 Overnight Events Overnight Events: No acute overnight issues He notes the correct story is that around 12/2024 he stated to noticed LLE weakness. By end of 12/2024 he started to notice RLE weakness. Then around mid 01/2025 he started to notice it in bilateral UE. He denies bowel/bladder issues. He denies preceding symptoms. He has parestheisa. Family History Patient History: Patient reports no known family medical history. Allergies and Medications Allergies: Coded Allergies: NO KNOWN ALLERGIES (Unverified , 02/09/25) Home Meds No Active Prescriptions or Reported Meds General Examination Last Vital sign Vital Signs Date Time Temp Pulse Resp B/P (MAP) Pulse Ox O2 Delivery O2 Flow Rate FiO2 02/14/25 12:18 97.6 68 20 122/61 (81) 94 97.6 02/14/25 08:00 Room Air* 0 21 General Exam: General Examination: General: No apparent distress, appears comfortable. Cooperative HEENT: Normocephalic, atraumatic. Supple neck. No oropharynx lesion or exudate noted. Extremities: No noted edema or cyanosis Skin: No noted rashes or jaundice. Neuro Exam: Neurological Examination: Mental Status: Alert and oriented to person, place, and time. Speech is fluent. No dysarthria or aphasia noted. Cranial Nerves: Pupils equally round and reactive to light. Fundoscopic examination showed sharp optic discs. Visual garcia intact. No dysconjugate gaze. Extraocular movements were intact. No ptosis on primary gaze or fatiguable ptosis was noted. Sensation intact in V1-V3 bilaterally. No facial asymmetry with symmetrical brow raise, smile, and puffing out cheeks. Hearing intact to finger rub bilaterally. Tongue midline with symmetrical palate elevation. No tongue atrophy or fasciculations noted. Intact shoulder shrug. Motor examination: Normal bulk and tone in the bilateral upper and lower extremities. No abnormal movements appreciated. Upper Extremities (Right/Left) Infraspinatus 5/5 Deltoid 5/5 Biceps 5/5 Triceps 5/5 Wrist Extension 5/5 Wrist Flexion 5/5 Finger Extension 5/5 Finger Flexion 5/5 Interosseous 5/5 ABP 5/5 Lower Extremities (Right/Left) Iliopsoas 5/5 Quadriceps 5/5 Hamstrings 5/5 Tibialis anterior 5/5 Gastrocnemius 5/5 Toe Extension 5/5 Reflexes: Jaw Jerk absent Pectoralis absent/absent Biceps 3/3 Triceps 3/3 Brachioradialis 2/2 Patellar 3/3 Ankle 4+ non sustained/3 Babinski's Down/Down Sensory: Upper Extremity - Intact to light touch, Lower Extremity - Intact to light touch,. No sensory level Coordination: Intact finger to nose and [id number] bilaterally. No dysmetria noted. Labs Labs: Laboratory Tests Test 02/09/25 00:00 02/09/25 17:13 02/09/25 18:11 02/09/25 20:09 Range/Units Urine Color Light-yellow Yellow Urine Clarity Turbid H Clear Urine pH 7.0 5.0-9.0 Urine Specific [place] 1.019 1.001-1.035 Urine Protein Negative Negative Urine Ketones Negative Negative Urine Blood Trace H Negative /uL Urine Nitrite Negative Negative Urine Bilirubin Negative Negative Urine Urobilinogen Normal Negative mg/dL Urine Leukocyte Esterase Negative Negative /uL Urine RBC <1 0 - 3 /hpf Urine Microscopic WBC < 1 0-3 /HPF Urine Squamous Epithelial Cells Few <5 /hpf Urine Amorphous Crystals Few None Seen /hpf Urine Bacteria Few H None Seen /hpf Urine Glucose Normal Normal mg/dL White Blood Count 5.4 4.4-10.8 10^3/uL Red Blood Count 5.27 4.5-5.90 10^6/uL Hemoglobin 17.3 13.5-17.5 g/dL Hematocrit 50.2 41.0-53.0 % Mean Corpuscular Volume 95.2 80.0-100.0 fL Mean Corpuscular Hemoglobin 32.9 H 28.0-32.0 pg Mean Corpuscular Hemoglobin Concent 34.6 32.0-36.0 g/dL Red Cell Distribution Width 13.1 11.8-14.3 % Platelet Count 183 140-450 10^3/uL Mean Platelet Volume 7.8 6.9-10.8 fL Neutrophils (%) (Auto) 54.7 37.0-80.0 % Lymphocytes (%) (Auto) 28.8 10.0-50.0 % Monocytes (%) (Auto) 11.4 0.0-12.0 % Eosinophils (%) (Auto) 4.6 0.0-7.0 % Basophils (%) (Auto) 0.5 0.0-2.0 % Neutrophils # (Auto) 2.9 1.6-8.6 10 ^3/uL Lymphocytes # (Auto) 1.5 0.4-5.4 10 ^3/uL Monocytes # (Auto) 0.6 0-1.3 10 ^3/uL Eosinophils # (Auto) 0.2 0-0.8 10 ^3/uL Basophils # (Auto) 0 0-0.2 10 ^3/uL Nucleated Red Blood Cells 0.2 % Sodium Level 137 136-145 mmol/L Potassium Level 4.0 3.5-5.1 mmol/L Chloride Level 106 98-107 mmol/L Carbon Dioxide Level 24 20-31 mmol/L Anion Gap 7 5-15 Blood Urea Nitrogen 19 9-23 mg/dL Creatinine 0.81 0.700-1.30 mg/dL Glomerular Filtration Rate Calc 97 >90 mL/min BUN/Creatinine Ratio 23.5 H 10.0-20.0 Serum Glucose 136 H 74-106 mg/dL Calcium Level 9.5 8.7-10.4 mg/dL Phosphorus Level 3.4 2.4-5.1 mg/dL Magnesium Level 2.2 1.6-2.6 mg/dL Total Bilirubin 0.7 0.2-1.0 mg/dL Aspartate Amino Transferase (AST) 25 13-40 U/L Alanine Aminotransferase (ALT) 22 7-40 U/L Alkaline Phosphatase 89 46-116 U/L Creatine Kinase 416 H 46-171 U/L Troponin I High Sensitivity 13 14 15 </=54 ng/L B-Type Natriuretic Peptide 90.03 0-100 pg/mL Total Protein 7.0 5.7-8.2 g/dL Albumin 4.1 3.2-4.8 g/dL Test 02/09/25 21:28 02/10/25 05:44 02/10/25 13:20 02/10/25 15:20 Range/Units CSF Tube Number Tube 3 CSF Appearance Clear, colorless CSF WBC 1 0-5 CUMM CSF RBC 66 H 0-5 CUMM CSF Protein (Tube 2) 73.9 H 15-45 mg/dL CSF Mononuclear Cells % CSF Polymorphonuclear Cells % CSF Glucose 60 40-70 mg/dL White Blood Count 6.1 4.4-10.8 10^3/uL Red Blood Count 5.00 4.5-5.90 10^6/uL Hemoglobin 16.7 13.5-17.5 g/dL Hematocrit 47.7 41.0-53.0 % Mean Corpuscular Volume 95.3 80.0-100.0 fL Mean Corpuscular Hemoglobin 33.3 H 28.0-32.0 pg Mean Corpuscular Hemoglobin Concent 35.0 32.0-36.0 g/dL Red Cell Distribution Width 13.0 11.8-14.3 % Platelet Count 161 140-450 10^3/uL Mean Platelet Volume 7.6 6.9-10.8 fL Neutrophils (%) (Auto) 61.3 37.0-80.0 % Lymphocytes (%) (Auto) 21.1 10.0-50.0 % Monocytes (%) (Auto) 13.3 H 0.0-12.0 % Eosinophils (%) (Auto) 4.0 0.0-7.0 % Basophils (%) (Auto) 0.3 0.0-2.0 % Neutrophils # (Auto) 3.8 1.6-8.6 10 ^3/uL Lymphocytes # (Auto) 1.3 0.4-5.4 10 ^3/uL Monocytes # (Auto) 0.8 0-1.3 10 ^3/uL Eosinophils # (Auto) 0.2 0-0.8 10 ^3/uL Basophils # (Auto) 0 0-0.2 10 ^3/uL Nucleated Red Blood Cells 0.1 % Prothrombin Time 10.9 9.3-11.8 sec Prothrombin Time INR 1.03 0.9-1.15 Sodium Level 138 136-145 mmol/L Potassium Level 3.9 3.5-5.1 mmol/L Chloride Level 104 98-107 mmol/L Carbon Dioxide Level 27 20-31 mmol/L Anion Gap 7 5-15 Blood Urea Nitrogen 16 9-23 mg/dL Creatinine 0.85 0.700-1.30 mg/dL Glomerular Filtration Rate Calc 95 >90 mL/min BUN/Creatinine Ratio 18.8 10.0-20.0 Serum Glucose 120 H 74-106 mg/dL Calcium Level 8.7 8.7-10.4 mg/dL Creatine Kinase MB 8.0 0.0-10.4 ng/mL Troponin I High Sensitivity 13 12 11 </=54 ng/L D-Dimer, Quantitative 0.91 H 0.0-0.49 mg/L FEU Test 02/11/25 06:07 02/12/25 06:18 02/13/25 09:41 Range/Units White Blood Count 5.4 5.2 4.4-10.8 10^3/uL Red Blood Count 5.35 5.61 4.5-5.90 10^6/uL Hemoglobin 17.7 H 18.7 H 13.5-17.5 g/dL Hematocrit 50.7 52.8 41.0-53.0 % Mean Corpuscular Volume 94.8 94.0 80.0-100.0 fL Mean Corpuscular Hemoglobin 33.1 H 33.3 H 28.0-32.0 pg Mean Corpuscular Hemoglobin Concent 34.9 35.5 32.0-36.0 g/dL Red Cell Distribution Width 12.7 13.0 11.8-14.3 % Platelet Count 169 163 140-450 10^3/uL Mean Platelet Volume 7.9 8.1 6.9-10.8 fL Neutrophils (%) (Auto) 58.3 70.0 37.0-80.0 % Lymphocytes (%) (Auto) 23.6 15.7 10.0-50.0 % Monocytes (%) (Auto) 13.8 H 11.0 0.0-12.0 % Eosinophils (%) (Auto) 3.9 2.8 0.0-7.0 % Basophils (%) (Auto) 0.4 0.5 0.0-2.0 % Neutrophils # (Auto) 3.2 3.7 1.6-8.6 10 ^3/uL Lymphocytes # (Auto) 1.3 0.8 0.4-5.4 10 ^3/uL Monocytes # (Auto) 0.8 0.6 0-1.3 10 ^3/uL Eosinophils # (Auto) 0.2 0.1 0-0.8 10 ^3/uL Basophils # (Auto) 0 0 0-0.2 10 ^3/uL Nucleated Red Blood Cells 0.4 0.1 % Sodium Level 138 137 136-145 mmol/L Potassium Level 4.0 4.1 3.5-5.1 mmol/L Chloride Level 106 104 98-107 mmol/L Carbon Dioxide Level 24 25 20-31 mmol/L Anion Gap 8 8 5-15 Blood Urea Nitrogen 14 15 9-23 mg/dL Creatinine 0.74 0.76 0.700-1.30 mg/dL Glomerular Filtration Rate Calc 99 99 >90 mL/min BUN/Creatinine Ratio 18.9 19.7 10.0-20.0 Serum Glucose 111 H 107 H 74-106 mg/dL Calcium Level 9.6 9.7 8.7-10.4 mg/dL Vitamin B12 Level 270 304 211-911 pg/mL Folic Acid 12.00 >5.38 ng/mL Methylmalonic Acid Pending Homocysteine 13.2 0.0-17.2 umol/L Assessment/Plan Assessment/Plan 1. Cervical Myelomalacia - around 12/2024 he stated to noticed LLE weakness. By end of 12/2024 he started to notice RLE weakness. Then around mid 01/2025 he started to notice it in bilateral UE. 01/2025 MRI C Spine wo contrast - C3-C5 compressive myelomalacia. 02/09 CSF WBC 1, RBC 66, Protein 73, Glucose 60. Labwork CK 416, Vitamin B12 270, Folate >12. 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 IVIG started 02/11. 01/2025 MRI Brain wo contrast + MRI T spine wo contrast showed no acute process. HE was given IVIG 0.66gm/kg daily x2 and stopped due to MRI findings and exam findings. - Spine surgery consult (spoke to surgeon) 3. Vitamin B12 deficiency - 01/2025 Vitamin B12 270 - Vitamin B12, MMA, Homocystiene Plan discussed with: Patient JUANITOMONICA MD February 13, 2025 08:05
[2025-02-13] MEDS: ACETAMINOPHEN 325 MG TAB PO PRN (12:23)
[2025-02-13] MEDS: GADOTERATE MEG 10 MMOL/20ml INJ (0.5MMOL/ml) IV ONE (12:23)
--- NOTE | 2025-02-13 14:52 | DVHINCON2 ---
Consultation - Spinal Surgery Date Seen: February 13, 2025 Referring Physician Referring Physician Attending Doctor: Rosmery Monzon [facility] Reason for Consultation Ascending paralysis, r/o GBS History of Present Illness History of Present Illness Mr. Bassam Aguilar is a 88-bsin-wli-male with no reported history who presents with a chief complaint of generalized weakness onset 3 months ago. Patient's roommate states the patient was in his normal state of health (ambulatory and without neuro deficit), then woke up one morning about 1.5 months ago experiencing LT leg weakness. Pt reports, "I was dragging my left leg," then weakness progressively worsened to involve both lower extremities, progressing to both upper extremities, to the point where he could no longer ambulate or hold objects. He also notes numbness that started in his lower extremities and now has ascended to BUE and his abdominal wall. About 1 week ago he began experiencing bilateral lower extremity swelling, difficulty breathing, and associated abdominal and back "tightness." Per friend, patient sought [facility] attention for the first time yesterday, was sent to [facility] for blood tests and was called today to go to ED due to abnormal lab results, patient found to have a CK of 416 as abnormal lab on ED workup. Patient CXR: unremarkable, CT head wo contrast no acute abnormality, BLE venous US with no DVT. Patient denies chest pain, dyspnea, headaches, dizziness, blurry vision, nausea, vomiting, fevers, chills, dysuria, loss of bowel function. Patient admitted for further evaluation and treatment. Home Meds No Active Prescriptions or Reported Meds Spine H&P On speaking with patient patient realized that he did fall two months ago striking his eyebrow he did report that he was unable to move immediately after the fall however since his sensation and movement came back within a few minutes he did not think anything of it. He was seen in the emergency room but neglect ed to tell anybody that he had that temporary paralysis. Past Medical/Surgical History Past Medical/Surgical History Cardiac: No pertinent Hx Pulmonary: No pertinent Hx Central Nervous System: No pertinent Hx GI: No pertinent Hx Hemotology/Oncology: No pertinent Hx Hepatobiliary: No pertinent Hx Psychiatric: No pertinent Hx Musculoskeletal: No pertinent Hx Rheumotologic: No pertinent Hx Infectious Disease: No peritnent Hx ENT: No pertinent Hx Renal/: No pertinent Hx Endocrine: No pertinent Hx Dermatology: No pertinent Hx no surgical history Family and Social History Family and Social History Patient Family History: Patient reports no known family medical history. Smoker: No Hx (Negative) Alcohol: Occasional Drugs: Marijuana (occasional) Lives with: Friends Domestic Violence: Neg Allergies and medications Allergies: Coded Allergies: NO KNOWN ALLERGIES (Unverified , 02/09/25) Home Meds No Active Prescriptions or Reported Meds Review of systems Review of Systems: HEENT:Normal (12 point review of systems is negative unless stated in HPI.) Examination Vital signs imaging MRI CERVICAL SPINE CLINICAL HISTORY: r/o GBS TECHNIQUE: Multiplanar, multisequence MR images of the cervical spine with and without contrast. 20 cc of clariscan contrast from a prefilled syringe was administered intravenously. COMPARISON: CT CERVICAL WO W CONTRAST on DOS: 02/09/25 FINDINGS: There is compression of the cord with patchy hyperintense T2 signal changes at the C3-C4 and C4-C5 levels likely related to compressive myelomalacia. There is no pathologic enhancement. The craniocervical junction appears within normal limits. The cervical vertebral bodies demonstrate normal height and marrow signal.. There is straightening of the cervical lordosis. There is disc desiccation throughout with moderate disc space narrowing / loss at multiple levels. There is multilevel facet arthropathy in the upper cervical spine. At C2-C3 there is bilateral facet arthropathy, segr-qgcgssq-bgqa-right. There is no canal stenosis. There is mild left neural foraminal stenosis. At C3-C4 there is posterior disc osteophyte complex and bilateral uncovertebral and facet arthropathy. There is severe spinal canal stenosis. There is severe bilateral neural foraminal stenosis. At C4-C5 there is posterior disc osteophyte complex and bilateral uncovertebral and facet arthropathy. There is moderate spinal canal stenosis. There is moderate to severe left and moderate right neural foraminal stenosis. At C5-C6 there is disc bulge eccentric to the right. There is no canal stenosis. There is moderate bilateral neural foraminal stenosis, omibq-jhzmtet-pbxo-left. At C6-C7 there is posterior disc osteophyte complex and bilateral uncovertebral arthropathy, bkwt-tjxirau-cfdo-right. There is no spinal canal stenosis. There is moderate to severe left and moderate right neural foraminal stenosis. At C7-T1 there is disc bulge eccentric to the left and bilateral facet arthropathy. There is no canal stenosis. There is moderate left and mild right neural foraminal stenosis. IMPRESSION: 1. Straightening of the cervical spine with multilevel advanced degenerative changes as described levels above, worst at C3-C4. 2. There is severe spinal canal and bilateral neural foraminal stenosis at C3- C4. 3. There is moderate spinal canal and moderate to severe left and moderate right neural foraminal stenosis at C4-C5. 4. 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 HS:Y thoracic spine W/WO contrast CLINICAL HISTORY: Rule out Guillain-Hawkins syndrome. TECHNIQUE: Multi sequence multi planar MRI images of the thoracic spine were ob tained prior to and after the administration of 10 mL Clariscan contrast. COMPARISON: CT THORACIC SPINE WO W on DOS: 02/09/25 FINDINGS: Vertebral body alignment is within normal limits. Multilevel small Schmorl's nodes are seen, some of which demonstrate adjacent t2/stir hyperintense signal suggesting acute or subacute Schmorl's nodes. Vertebral body heights are maintained. Posterior elements are intact. No acute fracture. No focal suspicious marrow signal abnormality identified. Disc desiccation throughout the thoracic spine. Mild disc bulges are seen at T2-T3, T3-T4, and T4-T5, without significant spinal canal stenosis. Multilevel facet hypertrophy with areas of uauo-wx-vovxlgna neural foraminal stenosis. Spinal cord is normal in signal intensity and morphology of the precontrast images. On the axial postcontrast images, there appears to be enhancement in the spinal cord at the T7 level, although this is favored to be artifact, as it is not correlated on the sagittal postcontrast images in this location and there is no signal abnormality on the precontrast images in the spinal cord at this location. Otherwise no enhancement in the thoracic spinal cord. No abnormal epidural or leptomeningeal enhancement. No definite thickening or enhancement of the visuali zed spinal nerve roots in the thoracic spine. IMPRESSION: 1. Apparent enhancement in the spinal cord at the T7 level on the axial images is favored to be artifact as described above. 2. Otherwise no abnormal postcontrast enhancement. No thickening or enhancement of the visualized spinal nerve roots in the thoracic spine to suggest Guillain- Hawkins syndrome, although correlation with clinical findings is needed. 3. 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 4. Additional findings as described above. : CT CERVICAL WO W CONTRAST INDICATION: ascending paralysis and numbness EXAM DATE: 02/09/2025 08:37 PM COMPARISON: None TECHNIQUE: Multiple axial CT images of the cervical spine were obtained using bone algorithm. Axial and coronal reformatting was done. Bone and soft tissue windows were reviewed. Radiation Dose Information: CT Dose: CTDI volume is 44.23 mGy. Dose-length product is 1095.19 mGy*cm Mild straightening of the normal cervical lordotic curve may be secondary to patient positioning or muscle spasm. Bony spondylosis and degenerative disc changes are noted from C3 through C7. There is a 5.4 mm subchondral cyst anteriorly near the inferior articular surface C3. FINDINGS: The cervical alignment is intact. No acute cervical spine fracture is identified. The vertebral body heights are intact. No suspicious osseous lesions are identified. No significant degenerative changes are identified. Xqrf-ne-siwjbbct spinal stenosis of the central canal C3-4 measuring 7-8 mm. There is no prevertebral soft tissue swelling. IMPRESSION: 1. No evidence of acute cervical spine fracture or traumatic malalignment. 2. Stjp-hl-kdpuhugy spinal stenosis C3-4. 3. CT is nondiagnostic for evaluating demyelinating disease recommend MRI. All CT scans at this medical facility are performed using dose modulation techniques as appropriate to a performed exam including the following: Automated exposure control was utilized; adjustment of the MA and/or KV according to patie nt size; and use of iterative reconstruction technique. HS:Y : CT THORACIC SPINE WO W HISTORY: ascending paralysis and numbness COMPARISON: None CTDIvol mGy, DLP mGy*cm. TECHNIQUE: Multiple axial CT images of the spine were obtained using bone algorithm. Axial and coronal reformatting was done. Bone and soft tissue windows were reviewed. FINDINGS: Mild thoracic dextroscoliosis. No listhesis. The thoracic vertebral bodies demonstrate no evidence of fracture or other significant abnormality. Paraspinal soft tissues appear unremarkable. Mild thoracic spondylosis without significant disc-osteophyte, spinal canal or neural foraminal stenosis at any of the levels in the thoracic spine. IMPRESSION: No significant abnormality demonstrated. LUMBAR SPINE WO/ W contrast Date: 02/09/2025 08:28 PM History: ascending paralysis and numbness Comparison: None TECHNIQUE: Multiple axial CT images of the lumbosacral spine were obtained using bone algorithm. Axial and coronal reformatting was done. Bone and soft tissue windows were reviewed. Radiation Dose Information: CT Dose: CTDI volume is 36.28 mGy. Dose-length product is 2694.66 mGy*cm Omni 300: 50 mL FINDINGS: No CT evidence of definite acute fracture, spinal dislocation, or significant appearing acute subluxation is seen. The visualized paraspinal soft tissues are grossly unremarkable. T12-L1 There is no evidence of central spinal canal or neuroforaminal stenosis. L1-L2 There is no evidence of central spinal canal or neuroforaminal stenosis. L2-L3 moderate spinal stenosis at L2-3 with the thecal sac compressed to mm front to back dimension L3-L4 There is no evidence of central spinal canal or neuroforaminal stenosis. L4-L5 There is no evidence of central spinal canal or neuroforaminal stenosis. L5-S1 hypertrophic arthritic changes of the posterior articulating facets and hypertrophy of the ligamentum flavum bilaterally. Moderate spinal stenosis at this level. Canal measures 6.2 mm front to back IMPRESSION: 1. No definite CT evidence of acute fracture or dislocation of the bony lumbar spine. 2. Ajhp-au-cbhxzaqd spinal stenosis L2-3 L5-S1. Recommend MRI or repeat CT with intrathecal contrast to determine significant stenosis. CT is nondiagnostic for evaluating demyelinating disease even with IV contrast. Recommend MRI. All CT scans at this medical facility are performed using dose modulation techniques as appropriate to a performed exam including the following: Automated exposure control was utilized; adjustment of the MA and/or KV according to patient size; and use of iterative reconstruction technique. Vital Signs Date Time Temp Pulse Resp B/P (MAP) Pulse Ox O2 Delivery O2 Flow Rate FiO2 02/13/25 09:00 98.6 67 18 111/70 (84) 94 98.6 02/13/25 08:00 Room Air* 0 21 Medications Current Medications Medications (Trade) Dose Ordered Sig/Jeremiah Route PRN Reason Start Time Stop Time Status Last Admin Baclofen (Liorisal Tablet) 10 mg TID PRN PO FOR MUSCLE SPASM 02/13/25 14:45 UNV Laboratory Labs Test 02/13/25 09:41 02/12/25 06:18 02/11/25 06:07 02/10/25 15:20 Range/Units Vitamin B12 Level 304 211-911 pg/mL White Blood Count 5.2 4.4-10.8 10^3/uL Red Blood Count 5.61 4.5-5.90 10^6/uL Hemoglobin 18.7 H 13.5-17.5 g/dL Hematocrit 52.8 41.0-53.0 % Mean Corpuscular Volume 94.0 80.0-100.0 fL Mean Corpuscular Hemoglobin 33.3 H 28.0-32.0 pg Mean Corpuscular Hemoglobin Concent 35.5 32.0-36.0 g/dL Red Cell Distribution Width 13.0 11.8-14.3 % Platelet Count 163 140-450 10^3/uL Mean Platelet Volume 8.1 6.9-10.8 fL Neutrophils (%) (Auto) 70.0 37.0-80.0 % Lymphocytes (%) (Auto) 15.7 10.0-50.0 % Monocytes (%) (Auto) 11.0 0.0-12.0 % Eosinophils (%) (Auto) 2.8 0.0-7.0 % Basophils (%) (Auto) 0.5 0.0-2.0 % Neutrophils # (Auto) 3.7 1.6-8.6 10 ^3/uL Lymphocytes # (Auto) 0.8 0.4-5.4 10 ^3/uL Monocytes # (Auto) 0.6 0-1.3 10 ^3/uL Eosinophils # (Auto) 0.1 0-0.8 10 ^3/uL Basophils # (Auto) 0 0-0.2 10 ^3/uL Nucleated Red Blood Cells 0.1 % Sodium Level 137 136-145 mmol/L Potassium Level 4.1 3.5-5.1 mmol/L Chloride Level 104 98-107 mmol/L Carbon Dioxide Level 25 20-31 mmol/L Anion Gap 8 5-15 Blood Urea Nitrogen 15 9-23 mg/dL Creatinine 0.76 0.700-1.30 mg/dL Glomerular Filtration Rate Calc 99 >90 mL/min BUN/Creatinine Ratio 19.7 10.0-20.0 Serum Glucose 107 H 74-106 mg/dL Calcium Level 9.7 8.7-10.4 mg/dL Folic Acid 12.00 >5.38 ng/mL D-Dimer, Quantitative 0.91 H 0.0-0.49 mg/L FEU Troponin I High Sensitivity 11 </=54 ng/L Test 02/10/25 05:44 02/09/25 21:28 02/09/25 17:13 02/09/25 00:00 Range/Units Prothrombin Time 10.9 9.3-11.8 sec Prothrombin Time INR 1.03 0.9-1.15 Creatine Kinase MB 8.0 0.0-10.4 ng/mL CSF Tube Number Tube 3 CSF Appearance Clear, colorless CSF WBC 1 0-5 CUMM CSF RBC 66 H 0-5 CUMM CSF Protein (Tube 2) 73.9 H 15-45 mg/dL CSF Mononuclear Cells % CSF Polymorphonuclear Cells % CSF Glucose 60 40-70 mg/dL Phosphorus Level 3.4 2.4-5.1 mg/dL Magnesium Level 2.2 1.6-2.6 mg/dL Total Bilirubin 0.7 0.2-1.0 mg/dL Aspartate Amino Transferase (AST) 25 13-40 U/L Alanine Aminotransferase (ALT) 22 7-40 U/L Alkaline Phosphatase 89 46-116 U/L Creatine Kinase 416 H 46-171 U/L B-Type Natriuretic Peptide 90.03 0-100 pg/mL Total Protein 7.0 5.7-8.2 g/dL Albumin 4.1 3.2-4.8 g/dL Urine Color Light-yellow Yellow Urine Clarity Turbid H Clear Urine pH 7.0 5.0-9.0 Urine Specific [place] 1.019 1.001-1.035 Urine Protein Negative Negative Urine Ketones Negative Negative Urine Blood Trace H Negative /uL Urine Nitrite Negative Negative Urine Bilirubin Negative Negative Urine Urobilinogen Normal Negative mg/dL Urine Leukocyte Esterase Negative Negative /uL Urine RBC <1 0 - 3 /hpf Urine Microscopic WBC < 1 0-3 /HPF Urine Squamous Epithelial Cells Few <5 /hpf Urine Amorphous Crystals Few None Seen /hpf Urine Bacteria Few H None Seen /hpf Urine Glucose Normal Normal mg/dL Microbiology Date/Time Source Procedure Growth Status 02/09/25 21:28 Cerebral Spinal Fluid Gram Stain - Final Resulted 02/09/25 21:28 Cerebral Spinal Fluid CSF Culture & Gram Stain (Tube 2) M - Preliminary Resulted 02/09/25 17:13 Blood Blood Culture - Preliminary NO GROWTH AFTER 72 HOURS OF INCUBATION. Resulted Examination: GENERAL:Normal, HEENT:Normal, NECK:Abnormal (Discomfort muscle spasms), LUNGS:Normal, CVS:Normal, ABDOMEN:Normal, MSK:Abnormal (Patient having spastic movements of the bilateral upper extremities, severe muscle spasms to muscle skeletal muscles with neck movement that is sudden.), SKIN:Normal, NEURO:Abnormal (Decreased sensation torso/nipple line down. 2/5 upper extremities, 3/5 lower extremities), :Abnormal (Patient requires Prieto catheter) Problem List/Assessment/Plan Problems: (1) Cervical stenosis of spinal canal (2) 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 Assessment and Plan Cervical cord compression, cervical stenosis- Patient will need a cervical decompression and fusion surgery planned for Tuesday either morning or afternoon depending on OR availability, patient has already been cardiac cleared Patient is agreeable to proceed with surgery as well as his Plan to make patient NPO at midnight Solu-Medrol 80 mg q.8 hours [place] collar requested patient also advised not to make any sudden movements with his head Baclofen has been started by admitting team Further care and management per admitting team's discretion The risks/benefits/alternatives of surgery were explained to the patient in detail including but not limited to , stroke, paralysis, myocardial infarction, bleeding, infection, complications of anesthesia (dry mouth, sore throat, dental damage, respiratory depression, blindness), postoperative infection, incomplete relief of symptoms, recurrence of symptoms, damage to blood vessels, nerves and tendons, pulmonary embolism and possible need for rep eat surgery in the future. Pain, damage to surrounding soft tissue structures, need for reoperation or future surgery, persistent pain/disability/deformity, bone graft collapse or extrusion of interbody device, instrumentation failure, need for instrumentation removal, dural tear, temporary or permanent nerve root damage, deep vein thrombosis, pulmonary embolism, were described to the patient in detail and the patient wishes to proceed. No guarantee of surgical outcome/improvement was implied. All of the questions were answered thoroughly and consents were obtained. Call with questions Sincere Noland [facility] Orthopaedic Spine Surgery nurse practitioner For Dr Chet Zaldivar Patient was examined, chart reviewed, labs evaluated, and diagnostic studies and findings analyzed. Case was discussed with Dr. Rk Zaldivar who formulated the plan of care. This medical document was created using an electronic medical record system with [employer] dictation system. Although this document has been carefully reviewed, there might still be some phonetic and typographical errors. These areas are purely typographical due to imperfections of the software programs, and do not reflect any compromise in the patient's medical care. Plan discussed with Plan discussed with: Patient, Spouse, Other (Summer RN) KAREN NOLAND NP February 13, 2025 14:52
--- NOTE | 2025-02-13 15:00 | DVHPN2 ---
Subjective Overnight events noted. Patient's MRI C-spine showed evidence of C3-C5 severe spinal stenosis with myelomalacia Changes from previous H/P or p: No Changes Objective Vitals Vital Signs Date Time Temp Pulse Resp B/P (MAP) Pulse Ox O2 Delivery O2 Flow Rate FiO2 02/13/25 09:00 98.6 67 18 111/70 (84) 94 98.6 02/13/25 08:00 Room Air* 0 21 Intake/Output Intake and Output 02/13/25 07:00 Intake Total 490 ml Output Total 725 ml Balance -235 ml Intake Oral 100 ml IV Total 390 ml Output Urine Total 725 ml # Voids 1 # Bowel Movements 2 Exam HEENT pupils are reactive Neck is supple CV is S1-S2 regular rate and rhythm Respiratory clear neck GI positive bowel sound Extremities no edema IN STORE REPRESENTATIVE bilateral lower extremity weakness with sensory deficit Medications Current Medications Medications Dose Ordered Sig/Jeremiah Route Start Time Stop Time Status Last Admin Dose Admin Ondansetron HCl 4 mg Q6HPRN PRN IV 02/09/25 22:45 Acetaminophen 650 mg Q6HPRN PRN PO 02/09/25 22:45 02/10/25 16:41 650 MG Nitroglycerin 0.4 mg Q5MINP PRN SL 02/10/25 12:45 02/10/25 13:26 0.4 MG Morphine Sulfate 2 mg [id number] PRN IV 02/10/25 12:45 02/10/25 13:23 2 MG Docusate Sodium 100 mg BIDPRN PRN PO 02/10/25 14:30 Sennosides 17.2 mg HS PO 02/10/25 22:00 02/11/25 21:43 17.2 MG Acetaminophen 650 mg PRN PRN PO 02/11/25 08:15 02/13/25 12:23 650 MG Diphenhydramine HCl 25 mg PRN PRN IV 02/11/25 08:15 Baclofen 10 mg TID PRN PO 02/13/25 14:45 Laboratory Results Laboratory Tests 02/12/25 06:18 Urinalysis Test 02/09/25 00:00 Urine Color Light-yellow (Yellow) Urine Clarity Turbid (Clear) H Urine pH 7.0 (5.0-9.0) Urine Specific [place] 1.019 (1.001-1.035) Urine Protein Negative (Negative) Urine Ketones Negative (Negative) Urine Blood Trace /uL (Negative) H Urine Nitrite Negative (Negative) Urine Bilirubin Negative (Negative) Urine Urobilinogen Normal mg/dL (Negative) Urine Leukocyte Esterase Negative /uL (Negative) Urine RBC <1 /hpf (0 - 3) Urine Microscopic WBC < 1 /HPF (0-3) Urine Squamous Epithelial Cells Few /hpf (<5) Urine Amorphous Crystals Few /hpf (None Seen) Urine Bacteria Few /hpf (None Seen) H Urine Glucose Normal mg/dL (Normal) Microbiology Microbiology Date/Time Source Procedure Growth Status 02/09/25 21:28 Cerebral Spinal Fluid Gram Stain - Final Resulted 02/09/25 21:28 Cerebral Spinal Fluid CSF Culture & Gram Stain (Tube 2) M - Preliminary Resulted 02/09/25 17:13 Blood Blood Culture - Preliminary NO GROWTH AFTER 72 HOURS OF INCUBATION. Resulted Assessment/Plan Assessment/Plan 69-year-old male with a no significant past medical history who initially presented to the hospital with generalized weakness starting from the left lower extremity then bilateral lower extremity along with sensory diabetes all the way up to the nipple level found to have 1. Ascending motor and sensory deficit , ruled in C3-C5 cervical myelomalacia as per MRI C-spine 2. Rule out chronic inflammatory demyelinating neuropathy 3. Chest pain ruled out [place], negative left heart catheterization 4. GB syndrome has been ruled out, -discontinue IVIG as per recommendation by Neurology, spine surgery consultation. plan of care discussed with the patient who understand and agreeable to plan. Plan discussed with: Patient My Orders Orders - AARON CESPEDES MD Procedure Category Date Status Time Consultdr. Rk CONS 02/13/25 Transmitted [place](Spine) 11:44 Baclofen Tablet PHA 02/13/25 In Process (Liorisal Tablet) 14:45 Date of Service: February 13, 2025 Billing Provider: AARON CESPEDES MD Common Visit Codes: NOT BILLABLE AARON CESPEDES MD February 13, 2025 15:00
[2025-02-13] MEDS: BACLOFEN 10 MG TAB PO PRN (15:30)
--- NOTE | 2025-02-13 17:03 | DVHPN2 ---
Progress Note - Dictate Date Seen: February 13, 2025 Medical Necessity Reason Pt with a Central, PICC or Fol: No Subjective Patient was seen and evaluated in follow up. Patient is resting in bed. Patient is complaining of neck pain. Ortho seen patient and has recommended for cervical decompression and fusion surgery which is tentatively planned for Tuesday. Patient is cardiac cleared for surgery. Telemetry reviewed. vital signs Vital Sign Date Time Temp Pulse Resp B/P (MAP) Pulse Ox O2 Delivery O2 Flow Rate FiO2 02/13/25 09:00 98.6 67 18 111/70 (84) 94 98.6 02/13/25 08:00 Room Air* 0 21 Total Intake and Output 02/12/25 02/12/25 02/13/25 15:00 23:00 07:00 Intake Total 200 ml 190 ml 100 ml Output Total 725 ml Balance 200 ml -535 ml 100 ml medications Current Medications Medications Dose Ordered Sig/Jeremiah Route Start Time Stop Time Status Last Admin Dose Admin Ondansetron HCl 4 mg Q6HPRN PRN IV 02/09/25 22:45 Acetaminophen 650 mg Q6HPRN PRN PO 02/09/25 22:45 02/10/25 16:41 650 MG Nitroglycerin 0.4 mg Q5MINP PRN SL 02/10/25 12:45 02/10/25 13:26 0.4 MG Morphine Sulfate 2 mg [id number] PRN IV 02/10/25 12:45 02/10/25 13:23 2 MG Docusate Sodium 100 mg BIDPRN PRN PO 02/10/25 14:30 Sennosides 17.2 mg HS PO 02/10/25 22:00 02/11/25 21:43 17.2 MG Acetaminophen 650 mg PRN PRN PO 02/11/25 08:15 02/13/25 12:23 650 MG Diphenhydramine HCl 25 mg PRN PRN IV 02/11/25 08:15 Immune Globulin 500 ml @ 30 mls/hr DAILY@1200 IV 02/12/25 12:00 02/15/25 04:39 02/13/25 13:25 30 MLS/HR objective GENERAL: Alert and oriented x 3. No acute distress. EYES: PERRL, EOMI. Anicteric. HENT: Moist mucous membranes. LUNGS: Clear to auscultation bilaterally. CARDIOVASCULAR: Regular rate and rhythm. ABDOMEN: Soft, nontender and nondistended. EXTREMITIES: No edema. NEUROLOGIC: No focal neurological deficits. SKIN: Warm, dry. laboratory and microbiology Laboratory Tests 02/12/25 06:18 Test 02/12/25 06:18 Range/Units Serum Glucose 107 H 74-106 mg/dL Problem List Chest pain. Ascending paralysis. Elevated CK level. Assessment/Plan Continued all current supportive medical care. Morphine for pain management. Nitro sublingual, Additional plan as per the hospital course. Dietary Evaluation Review Comments: Monitor PO itnake to meet 75% of his needs Expected Outcomes/Goals: maitain Wt. Plan discussed with: Patient RITA SIN MD February 13, 2025 14:14
[2025-02-13] MEDS: methylPREDNISolone SOD SUCC 125 MG/2 ML VL IV SCH (22:22)
[2025-02-14] VITALS (12 sets, daily range): BP systolic 90–143; BP diastolic 42–66; PULSE 52–68; RESP 16–20; TEMP 97.6–98.6; O2SAT 92–100
[2025-02-14 08:07] LABS: Homocyst(e)ine 13.2 umol/L (0.0-17.2)
--- NOTE | 2025-02-14 14:19 | DVHPN2 ---
Progress Note - Dictate Date Seen: February 14, 2025 Medical Necessity Reason Pt with a Central, PICC or Fol: No Subjective Patient was seen and evaluated in follow up. Patient complains of neck discomfort,. The patient is scheduled for cervical decompression and fusion surgery Tuesday. Patient is cardiac cleared for surgery. Telemetry reviewed. vital signs Vital Sign Date Time Temp Pulse Resp B/P (MAP) Pulse Ox O2 Delivery O2 Flow Rate FiO2 02/14/25 08:25 97.6 68 18 98/49 (65) 95 97.6 02/14/25 08:00 Room Air* 0 21 Total Intake and Output 02/13/25 02/13/25 02/14/25 15:00 23:00 07:00 Intake Total 900 ml 310 ml Output Total 1150 ml 750 ml Balance -250 ml -440 ml medications Current Medications Medications Dose Ordered Sig/Jeremiah Route Start Time Stop Time Status Last Admin Dose Admin Ondansetron HCl 4 mg Q6HPRN PRN IV 02/09/25 22:45 Acetaminophen 650 mg Q6HPRN PRN PO 02/09/25 22:45 02/10/25 16:41 650 MG Nitroglycerin 0.4 mg Q5MINP PRN SL 02/10/25 12:45 02/10/25 13:26 0.4 MG Morphine Sulfate 2 mg [id number] PRN IV 02/10/25 12:45 02/10/25 13:23 2 MG Docusate Sodium 100 mg BIDPRN PRN PO 02/10/25 14:30 Sennosides 17.2 mg HS PO 02/10/25 22:00 02/13/25 22:22 17.2 MG Acetaminophen 650 mg PRN PRN PO 02/11/25 08:15 02/13/25 12:23 650 MG Diphenhydramine HCl 25 mg PRN PRN IV 02/11/25 08:15 Baclofen 10 mg TID PRN PO 02/13/25 14:45 02/14/25 10:20 10 MG Methylprednisolone Sodium Succinate 80 mg Q8HR IV 02/13/25 22:00 02/14/25 05:33 80 MG objective GENERAL: Alert and oriented x 3. No acute distress. EYES: PERRL, EOMI. Anicteric. HENT: Moist mucous membranes. LUNGS: Clear to auscultation bilaterally. CARDIOVASCULAR: Regular rate and rhythm. ABDOMEN: Soft, nontender and nondistended. EXTREMITIES: No edema. NEUROLOGIC: No focal neurological deficits. SKIN: Warm, dry. laboratory and microbiology Laboratory Tests 02/12/25 06:18 Test 02/12/25 06:18 Range/Units Serum Glucose 107 H 74-106 mg/dL Problem List Chest pain. Ascending paralysis. Elevated CK level. Assessment/Plan Continued all current supportive medical care. Morphine for pain management. Nitro sublingual. Additional plan as per the hospital course. Dietary Evaluation Review Comments: Monitor PO itnake to meet 75% of his needs Expected Outcomes/Goals: bright Wt. Plan discussed with: Patient RITA SIN MD February 14, 2025 11:21
--- NOTE | 2025-02-14 16:17 | DVHPN2 ---
Subjective Overnight events noted. Patient's MRI C-spine showed evidence of C3-C5 severe spinal stenosis with myelomalacia. Spine surgery has been consulted the patient is scheduled for possible spine surgery intervention soon. 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 Medications Current Medications Medications Dose Ordered Sig/Jeremiah Route Start Time Stop Time Status Last Admin Dose Admin Ondansetron HCl 4 mg Q6HPRN PRN IV 02/09/25 22:45 Acetaminophen 650 mg Q6HPRN PRN PO 02/09/25 22:45 02/10/25 16:41 650 MG Nitroglycerin 0.4 mg Q5MINP PRN SL 02/10/25 12:45 02/10/25 13:26 0.4 MG Morphine Sulfate 2 mg [id number] PRN IV 02/10/25 12:45 02/10/25 13:23 2 MG Docusate Sodium 100 mg BIDPRN PRN PO 02/10/25 14:30 Sennosides 17.2 mg HS PO 02/10/25 22:00 02/13/25 22:22 17.2 MG Acetaminophen 650 mg PRN PRN PO 02/11/25 08:15 02/13/25 12:23 650 MG Diphenhydramine HCl 25 mg PRN PRN IV 02/11/25 08:15 Baclofen 10 mg TID PRN PO 02/13/25 14:45 02/14/25 10:20 10 MG Methylprednisolone Sodium Succinate 80 mg Q8HR IV 02/13/25 22:00 02/14/25 14:23 80 MG Laboratory Results Laboratory Tests 02/12/25 06:18 Urinalysis Test 02/09/25 00:00 Urine Color Light-yellow (Yellow) Urine Clarity Turbid (Clear) H Urine pH 7.0 (5.0-9.0) Urine Specific [place] 1.019 (1.001-1.035) Urine Protein Negative (Negative) Urine Ketones Negative (Negative) Urine Blood Trace /uL (Negative) H Urine Nitrite Negative (Negative) Urine Bilirubin Negative (Negative) Urine Urobilinogen Normal mg/dL (Negative) Urine Leukocyte Esterase Negative /uL (Negative) Urine RBC <1 /hpf (0 - 3) Urine Microscopic WBC < 1 /HPF (0-3) Urine Squamous Epithelial Cells Few /hpf (<5) Urine Amorphous Crystals Few /hpf (None Seen) Urine Bacteria Few /hpf (None Seen) H Urine Glucose Normal mg/dL (Normal) Microbiology Microbiology Date/Time Source Procedure Growth Status 02/09/25 21:28 Cerebral Spinal Fluid Gram Stain - Final Resulted 02/09/25 21:28 Cerebral Spinal Fluid CSF Culture & Gram Stain (Tube 2) M - Preliminary Resulted 02/09/25 17:13 Blood Blood Culture - Preliminary NO GROWTH AFTER 72 HOURS OF INCUBATION. Resulted Assessment/Plan Assessment/Plan 69-year-old male with a no significant past medical history who initially presented to the hospital with generalized weakness starting from the left lower extremity then bilateral lower extremity along with sensory diabetes all the way up to the nipple level found to have 1. Ascending motor and sensory deficit , ruled in C3-C5 cervical myelomalacia as per MRI C-spine 2. Rule out chronic inflammatory demyelinating neuropathy 3. Chest pain ruled out MS, negative left heart catheterization 4. GB syndrome has been ruled out, -discontinue IVIG as per recommendation by Neurology, spine surgery consultation appreciated. plan of care discussed with the patient who understand and agreeable to plan. Plan discussed with: Patient Date of Service: February 14, 2025 Billing Provider: AARON CESPEDES MD Common Visit Codes: NOT BILLABLE AARON CESPEDES MD February 14, 2025 16:17
--- NOTE | 2025-02-14 18:43 | PRN ---
Misceleneous Note Note Note Surgical/procedural interval history and physical note Current H and P was reviewed. The patient was reexamined. Re-evaluation of the patient confirms the necessity for the scheduled procedure. No change has occurred in the patient's condition since the H and P/ spine consult was complete no less than 30 days ago. Physicians verification of informed consent The patient was counseled regarding the procedure, its indications, risks, potential complications, and alternatives. The risks/benefits/alternatives of surgery were explained to the patient in detail including but not limited to , stroke, paralysis, myocardial infarction, bleeding, infection, complications of anesthesia (dry mouth, sore throat, dental damage, respiratory depression, blindness), postoperative infection, incomplete relief of symptoms, recurrence of symptoms, damage to blood vessels, nerves and tendons, pulmonary embolism and possible need for repeat surgery in the future. Pain, damage to surrounding soft tissue structures, need for reoperation or future surgery, persistent pain/disability/deformity, bone graft collapse or extrusion of interbody device, instrumentation failure, need for instrumentation removal, dural tear, temporary or permanent nerve root damage, deep vein thrombosis, pulmonary embolism, were described to the patient in detail and the patient wishes to proceed. No guarantee of surgical outcome/improvement was implied. All of the questions were answered thoroughly, patient was agreeable to proceed and consents were obtained. Physicians verification of informed consent for blood transfusion There is a reasonable possibility that blood transfusions will be necessary as a result of the patient's procedure. I have discussed the following with the patient/patient's legal solar sales representative. An explanation of benefits and risks of the transfusion of blood or blood products and possible alternatives. All questions have been answered to the patient's or they are legal representatives satisfaction. Informed consent -The patient has been informed of: -The nature of the proposed care, treatment, services, medications, interventions or procedures. -Potential benefits, risks or side effects, including potential problems related to the procedure. -The likelihood of achieving care treatment and Service goals -Possible alternatives to the procedure/proposed care, treatment and service. -The relative risks, benefits and side effects related to alternatives, inc luding possible results of not receiving care, treatment and services. -When indicated, any limitations on the confidentiality of the informed leaning from or about the patient. -if appropriate, the risks, benefits and alternatives of the drugs to be used for sedation/analgesia including moderate sedation. -if appropriate, patient has been provided information on the risks, benefits and alternatives to the transfusion of blood and/or blood products. -if appropriate, the patient has been provided information regarding the [place] blood act. Call with questions Sincere Matamoros [facility] Orthopaedic Spine Surgery nurse practitioner For Dr Chet Zaldivar Patient was examined, chart reviewed, labs evaluated, and diagnostic studies and findings analyzed. Case was discussed with Dr. Rk Zaldivar who formulated the plan of care. This medical document was created using an electronic medical record system with [employer] dictation system. Although this document has been carefully reviewed, there might still be some phonetic and typographical errors. These areas are purely typographical due to imperfections of the software programs, a nd do not reflect any compromise in the patient's medical care. KAREN MATAMOROS NP February 14, 2025 18:43
[2025-02-14] MEDS: TRANEXAMIC ACID 20 ML ONE (18:58)
[2025-02-14] MEDS: levoFLOXacin 500MG 100 ML IV ONE (19:00)
[2025-02-14] MEDS ORDERED: PROPOFOL 10 MG/ML 20 ML IV ONE (19:53)
[2025-02-14] MEDS ORDERED: MIDAZOLAM HCL 2MG/2ML 2ml VIAL (1mg/ml) ONE (19:53)
[2025-02-14] MEDS ORDERED: HYDROmorphone HCL 2 MG/ML VL/or syr ONE (19:53)
[2025-02-14] MEDS ORDERED: fentaNYL CITRATE 5 ML ONE ×2 (19:53→19:54)
[2025-02-14] MEDS ORDERED: ONDANSETRON HCL 4 MG/2 ML VIAL IV PRN (21:00)
[2025-02-14] MEDS ORDERED: ACETAMINOPHEN 325 MG TAB PO PRN (21:00)
[2025-02-14] MEDS: D5W/SOD CHLO 0.9% 1,000 ML IV SCH (21:00)
[2025-02-14] MEDS ORDERED: HYDROcodone-ACET 10/325MG TAB PO PRN (21:00)
[2025-02-14] MEDS: ONDANSETRON HCL 4 MG/2 ML VIAL IV ONE (21:15)
[2025-02-14] MEDS ORDERED: hydrALAZINE HCL 20 MG/ML VL IV PRN (21:15)
[2025-02-14] MEDS ORDERED: MIDAZOLAM HCL 2MG/2ML 2ml VIAL (1mg/ml) IV PRN (21:15)
[2025-02-14] MEDS ORDERED: ePHEDrine SULFATE 50 MG/ML AMP IV PRN (21:15)
[2025-02-14] MEDS ORDERED: MORPHINE SULFATE 4 MG/ML SYR/VIAL IV PRN (21:15)
[2025-02-14] MEDS ORDERED: HYDROmorphone HCL 2 MG/ML VL/or syr IV PRN (21:15)
[2025-02-14] MEDS: DOCUSATE SOD 100 MG CAP PO SCH (22:00)
[2025-02-14] MEDS: ceFAZolin 1GM/50ML 50 ML IV SCH (22:00)
[2025-02-14] MEDS: CYCLOBENZAPRINE HCL 10 MG TAB PO SCH (22:00)
--- NOTE | 2025-02-14 22:32 | DVHOP2 ---
Operative Report - 2 Report Details Date: 02/14/25 Preop Diagnosis: cervical spinal stenosis/myelopathy/central cord syndrome Postop Diagnosis: same as pre op Surgeon: Rk Zaldivar MD Web Portal Developer: Marilu Matamoros NP Anesthesiologist: frieda Anesthesia: General Consent: The patient was informed of the risks and benefits of the procedure. These include but are not limited to complications of anesthesia, postoperative infection, incomplete relief of symptoms, recurrence of symptoms, damage to blood vessels, nerves and tendons, deep venous thrombosis, pulmonary embolism and possible need for repeat surgery in the future. 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 Post Op Diagnosis: same as pre op Procedure: Cervical 3 to 4 anterior cervical discectomy with Cervical 3-4 foraminotomies and facetectomies to decompression the spinal canal and Cervical 4 nerve roots Cervical 4 to 5 anterior cervical discectomy with Cervical 4-5 foraminotomies and facetectomies to decompression the spinal canal and Cervical 5 nerve roots Cervical 3-5 anterior cervical Fusion Cervical 3-5 anterior cervical instrumentation with freestanding cages Cervical 3-4 placement of allograft prosthetic device Cervical 4-5 placement of allograft prosthetic device Microscope for micro dissection Surgeon: Rk Zaldivar MD Anesthesia: General Assist: Marilu Matamoros NP Fluids and EBL: see anesthesia note Procedure Note: The patient was seen in the Pre-anesthesia Care Unit and the site of the incision was initialed by me with a felt tipped marker. All questions by the patient were answered to the satisfaction of the patient and the chart was reviewed. The patient was taken to the operating room and placed supine on the [facility] top table. General anesthesia was induced. Neuromonitoring leads were placed. A rolled towel was placed between the shoulder blades to hyperextend out the chest which will allow better exposure of the cervical spine. Halter traction to 10 pounds was placed. The arms were padded and adducted to the patients side making sure all pulses in the hands were present. Tape traction was undertaken on the shoulders to give us better radiographic ex posure of the distal cervical spine. A gel-pad was placed under the occiput and 5 degrees of extension was placed on the neck without adverse effects to the patient. The anterior neck was prepped and draped. Pre-operative antibiotics were given 30 minutes prior to the start of the procedure. A c-arm fluoroscope was used to josé miguel out the incision site. At this time, a time out was taken per usual protocol. Next an incision was made through the skin with a 15 blade scalpel through the subcutaneous tissue down to the platysma. Self-retainers were placed. The platysma was incised along the longitudinal border with a Metzenbaum scissors. Blunt dissection was made through the deep cervical and pre-tracheal fascia taking care to protect the carotid sheath laterally and the Trachea/esophagus medially. The dissection was carried down to the prevertebral fascia. Any crossing vessels were ligated using a vascular clip or coagulated with a bovie. An esophageal retractor was next used to retract the trachea/esophagus and a bent [address] through the anterior annulus of the cervical disk and a lateral C-arm fluoroscopic image was taken to confirm that we were at the correct level. Next, bovie electrocautery was used to expose the bones of cervical 3,4,5, and bipolar electrocuatery was used to lift up the Longus colli and capitus muscles. Black-Belt Self Retainers were used to retract the longus colli and capitus muscles bilaterally as well as the trachea/esophagus to the right and the carot id sheath to the left. Smooth thin Black-Belt retractors were placed proximally and distally and a needle was placed again in the anterior annulus of the disk and an image taken to confirm the correct level. At this point, the microscope was wheeled in and an 11 blade scalpel incised the anterior annulus of the cervical 3/4 and 4/5 disks. Next, straight and curved curettes removed the remainder of the disks all the way down to the posterior longitudinal ligament. Carefully, a Kerison number one rongeur incised the posterior longitudinal ligament at the lateral end of the above disks and using a micro, blunt tip nerve hook to separate the posterior longitudinal ligament from the dura, alternating 1 mm and 2 mm Kerison rongeurs removed the posterior longitudinal ligament. Next, Kerison 1mm and 2 mm rongeurs were alternated to get under the uncinate processes and undercut them to perform foraminotomies and factectomies at the cervical 3/4 and 4/5 levels to decompress the central canal and cervical 4,5 nerve roots. Next the microscope was wheeled away and the c-arm fluoroscope was wheeled into the field and a lateral image was obtained. Increasing size graft trials were used starting at a 5 mm thick size until the proper tension in the disk space and height gnosticism obtained. We then placed final free standing cages at C3/4 and 4/5. Satisfactory placement was confirmed in the AP and lateral views using a C-arm fluoroscope. Copious irrigation of the wound with sterile saline and all bleeding was controlled before closure initiated. At this point, a 10 [place] round [address] Drain was place deep to the Platysma muscle and the Platysma was approximated with one interrupted 0-Vicryl suture. The subcutaneous tissue was closed with interrupted 2-0 vicryl sutures and the skin was closed with gregg. Sterile dressings were placed and a cervical collar placed, the patient extubated, transferred to the stretcher and taken to the Recovery Room in unremarkable condition. Other Notes: CPT codes: 38804,[id number], 01078 Condition Stable Disposition Still a Patient RK ZALDIVAR MD February 14, 2025 22:32
[2025-02-14] MEDS: fentaNYL Drip 2500mCg/250mlNS 250 ML IV ONE (23:47)
[2025-02-14] MEDS: MIDAZOLAM DRIP 50 mg/50mL 50 ML IV ONE (23:47)
[2025-02-15] VITALS (107 sets, daily range): BP systolic 57–142; BP diastolic 40–99; PULSE 46–66; RESP 14–19; TEMP 98.1–99; O2SAT 94–100
[2025-02-15] MEDS: fentaNYL Drip 2500mCg/250mlNS 250 ML IV SCH (00:09)
[2025-02-15] MEDS: MIDAZOLAM DRIP 50 mg/50mL 50 ML IV SCH (00:10)
[2025-02-15] MEDS: LACTATED RINGER'S 1,000 ML IV SCH ×2 (00:10→08:00)
[2025-02-15 03:33] LABS: Basophils # (auto) 0 10 ^3/uL (0-0.2); Basophils % (auto) 0.1 % (0.0-2.0); Eosinophils # (auto) 0 10 ^3/uL (0-0.8); Eosinophils % (auto) 0.1 % (0.0-7.0); Hematocrit 44.6 % (41.0-53.0); Hemoglobin 15.9 g/dL (13.5-17.5); Lymphocytes # (auto) 0.7 10 ^3/uL (0.4-5.4); Lymphocytes % (auto) 9.1 % (10.0-50.0); Mean Corpuscular Hemoglobin 33.4 pg (28.0-32.0); Mean Corpuscular Hgb Conc. 35.7 g/dL (32.0-36.0); Mean Corpuscular Volume 93.5 fL (80.0-100.0); Monocytes # (auto) 0.4 10 ^3/uL (0-1.3); Monocytes % (auto) 5.3 % (0.0-12.0); Neutrophils % (auto) 85.4 % (37.0-80.0); Platelet Count (auto) 172 10^3/uL (140-450); Red Blood Cells 4.77 10^6/uL (4.5-5.90); White Blood Cell 8.2 10^3/uL (4.4-10.8)
[2025-02-15 03:54] LABS: Anion Gap 8 (5-15); Carbon Dioxide 24 mmol/L (20-31); Chloride 103 mmol/L (98-107); Potassium 4.6 mmol/L (3.5-5.1)
[2025-02-15 03:56] LABS: Calcium 8.6 mg/dL (8.7-10.4); Sodium 135 mmol/L (136-145)
[2025-02-15 04:00] LABS: BUN/Creatinine Ratio 34.7 (10.0-20.0)
[2025-02-15 04:20] LABS: Blood Urea Nitrogen 25 mg/dL (9-23); Glucose 174 mg/dL (74-106)
--- NOTE | 2025-02-15 05:57 | DVH ---
EXAM: XR Chest, 1 View CLINICAL INDICATION: ACUTE RESP DISTRESS TECHNIQUE: Frontal view of the chest. COMPARISON: XY CHEST PORTABLE on DOS: 02/09/25 FINDINGS: LUNGS AND PLEURAL SPACES: See below. HEART: Cardiomegaly with mild congestion. MEDIASTINUM: Unremarkable. Normal mediastinal contour. BONES/JOINTS: Unremarkable. No acute fracture. TUBES, LINES AND DEVICES: The endotracheal tube (ETT) is in satisfactory position. OTHER FINDINGS: . . IMPRESSION: Cardiomegaly with mild congestion.
--- NOTE | 2025-02-15 11:18 | DVH ---
C-ARM FLUOROSCOPY: PROCEDURE: Cervical discectomy and fusion FLUOROSCOPY TIME: 15.3 sec DAP: 1.70 mgy FINDINGS: Spot intraoperative C arm radiographs demonstrating cervical discectomy and fusion. IMPRESSION: Please refer to surgical report for detailed findings.
--- NOTE | 2025-02-15 12:31 | DVHPN2 ---
Progress Note - Dictate Date Seen: February 15, 2025 Medical Necessity Reason Pt with a Central, PICC or Fol: No Subjective Patient was seen and evaluated in follow up in the ICU. Patient underwent anterior cervical discectomy fusion and decompression of C3-C4, C4-C5. Patient remains intubated postoperatively. CBC is unremarkable. BUN 25, CA 8.6. Chest x- ray shows cardiomegaly with mild congestion. vital signs Vital Sign Date Time Temp Pulse Resp B/P (MAP) Pulse Ox O2 Delivery O2 Flow Rate FiO2 02/15/25 10:30 30 02/15/25 10:30 55 02/15/25 10:30 18 99 Mechanical Ventilator+ 02/15/25 09:52 90/43 (59) 02/15/25 09:30 98.8 209.8 02/15/25 08:00 0 Total Intake and Output 02/14/25 02/14/25 02/15/25 15:00 23:00 07:00 Intake Total 740 ml 642.5 ml Output Total 1002 ml 812 ml Balance -262 ml -169.5 ml medications Current Medications Medications Dose Ordered Sig/Jeremiah Route Start Time Stop Time Status Last Admin Dose Admin Nitroglycerin 0.4 mg Q5MINP PRN SL 02/10/25 12:45 02/10/25 13:26 0.4 MG Morphine Sulfate 2 mg [id number] PRN IV 02/10/25 12:45 02/10/25 13:23 2 MG Sennosides 17.2 mg HS PO 02/10/25 22:00 02/13/25 22:22 17.2 MG Diphenhydramine HCl 25 mg PRN PRN IV 02/11/25 08:15 Baclofen 10 mg TID PRN PO 02/13/25 14:45 02/14/25 10:20 10 MG Methylprednisolone Sodium Succinate 80 mg Q8HR IV 02/13/25 22:00 02/15/25 06:55 80 MG Ondansetron HCl 4 mg Q4HP PRN IV 02/14/25 21:00 Acetaminophen 650 mg Q6HP PRN PO 02/14/25 21:00 Acetaminophen/ Hydrocodone Bitart 1 tab Q6HP PRN PO 02/14/25 21:00 Morphine Sulfate 1 mg Q4HP PRN IV 02/14/25 21:00 Cyclobenzaprine HCl 10 mg TID PO 02/14/25 22:00 Docusate Sodium 100 mg BID PO 02/14/25 22:00 Cefazolin Sodium 50 ml @ 100 mls/hr Q8HR IV 02/14/25 22:00 02/16/25 14:29 02/15/25 06:54 100 MLS/HR Midazolam HCl 50 ml @ 1 mls/hr Q24H IV 02/14/25 23:45 02/15/25 08:44 3 MLS/HR Fentanyl Citrate 250 ml @ 2.5 mls/hr Q24H IV 02/14/25 23:45 02/15/25 00:09 2.5 MLS/HR Lactated Ringer's 1,000 ml @ 125 mls/hr Q8H IV 02/15/25 08:45 02/15/25 08:00 125 MLS/HR objective GENERAL: Ill appearing, intubated on ventilator. EYES: PERRL, EOMI. Anicteric. HENT: Moist mucous membranes. LUNGS: Decreased breath sounds. CARDIOVASCULAR: Regular rate and rhythm. ABDOMEN: Soft, nontender and nondistended. EXTREMITIES: No edema. SKIN: Warm, dry. laboratory and microbiology Laboratory Tests 02/15/25 03:00 Test 02/15/25 03:00 Range/Units Serum Glucose 174 H 74-106 mg/dL Problem List Chest pain. Ascending paralysis. Elevated CK level. Cervical spinal stenosis/myelopathy/central cord syndrome. Assessment/Plan Continued all current supportive medical care. Morphine for pain management. Nitro sublingual. Additional plan as per the hospital course. Critical care time of 45 minutes provided to include time spent evaluation of patient at bedside, when appropriate patient/family education for diagnosis, treatment plan, review of pertinent medical information and discussion of care with specialty providers and PCP. Mechanical ventilator parameters, treatment and adjustments have personally been reviewed by me and treatment plan by fur blender has also been reviewed. Dietary Evaluation Review Comments: Monitor PO itnake to meet 75% of his needs Expected Outcomes/Goals: bright [place]. Plan discussed with: Other RITA SIN MD February 15, 2025 11:47
--- NOTE | 2025-02-15 12:37 | DVHPN2 ---
Subjective Overnight events noted. Patient's MRI C-spine showed evidence of C3-C5 severe spinal stenosis with myelomalacia. PATIENT IS STATUS POST ANTERIOR CERVICAL DISKECTOMY WITH THE SPINAL CANAL DECOMPRESSION AT C3-4 FIVE LEVELS POSTOP DAY ONE. PATIENT REMAINS INTUBATED AND SEDATED. Reviewed: Care Plan Changes from previous H/P or p: Changes (PATIENT INTUBATED AND SEDATED.) Objective Vitals Vital Signs Date Time Temp Pulse Resp B/P (MAP) Pulse Ox O2 Delivery O2 Flow Rate FiO2 02/15/25 12:15 98.6 51 18 93/44 (60) 97 209.5 70/56 (61) 02/15/25 12:00 30 02/15/25 12:00 Mechanical Ventilator+ 02/15/25 08:00 0 Intake/Output Intake and Output 02/15/25 07:00 Intake Total 1382.5 ml Output Total 1814 ml Balance -431.5 ml Intake Oral 740 ml IV Total 642.5 ml Output Urine Total 1800 ml Stool Total 4 ml Drainage Total 10 ml Exam HEENT pupils are reactive Neck is supple CV is S1-S2 regular rate and rhythm Respiratory clear neck GI positive bowel sound Extremities no edema 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 Medications Current Medications Medications Dose Ordered Sig/Jeremiah Route Start Time Stop Time Status Last Admin Dose Admin Nitroglycerin 0.4 mg Q5MINP PRN SL 02/10/25 12:45 02/10/25 13:26 0.4 MG Morphine Sulfate 2 mg [id number] PRN IV 02/10/25 12:45 02/10/25 13:23 2 MG Sennosides 17.2 mg HS PO 02/10/25 22:00 02/13/25 22:22 17.2 MG Diphenhydramine HCl 25 mg PRN PRN IV 02/11/25 08:15 Baclofen 10 mg TID PRN PO 02/13/25 14:45 02/14/25 10:20 10 MG Methylprednisolone Sodium Succinate 80 mg Q8HR IV 02/13/25 22:00 02/15/25 06:55 80 MG Ondansetron HCl 4 mg Q4HP PRN IV 02/14/25 21:00 Acetaminophen 650 mg Q6HP PRN PO 02/14/25 21:00 Acetaminophen/ Hydrocodone Bitart 1 tab Q6HP PRN PO 02/14/25 21:00 Morphine Sulfate 1 mg Q4HP PRN IV 02/14/25 21:00 Cyclobenzaprine HCl 10 mg TID PO 02/14/25 22:00 Docusate Sodium 100 mg BID PO 02/14/25 22:00 Cefazolin Sodium 50 ml @ 100 mls/hr Q8HR IV 02/14/25 22:00 02/16/25 14:29 02/15/25 06:54 100 MLS/HR Midazolam HCl 50 ml @ 1 mls/hr Q24H IV 02/14/25 23:45 02/15/25 08:44 3 MLS/HR Fentanyl Citrate 250 ml @ 2.5 mls/hr Q24H IV 02/14/25 23:45 02/15/25 00:09 2.5 MLS/HR Lactated Ringer's 1,000 ml @ 125 mls/hr Q8H IV 02/15/25 08:45 02/15/25 08:00 125 MLS/HR Laboratory Results Laboratory Tests 02/15/25 03:00 Chemistry Test 02/15/25 03:00 Calcium Level 8.6 mg/dL (8.7-10.4) L Magnesium Level 2.1 mg/dL (1.6-2.6) Urinalysis Test 02/09/25 00:00 Urine Color Light-yellow (Yellow) Urine Clarity Turbid (Clear) H Urine pH 7.0 (5.0-9.0) Urine Specific [place] 1.019 (1.001-1.035) Urine Protein Negative (Negative) Urine Ketones Negative (Negative) Urine Blood Trace /uL (Negative) H Urine Nitrite Negative (Negative) Urine Bilirubin Negative (Negative) Urine Urobilinogen Normal mg/dL (Negative) Urine Leukocyte Esterase Negative /uL (Negative) Urine RBC <1 /hpf (0 - 3) Urine Microscopic WBC < 1 /HPF (0-3) Urine Squamous Epithelial Cells Few /hpf (<5) Urine Amorphous Crystals Few /hpf (None Seen) Urine Bacteria Few /hpf (None Seen) H Urine Glucose Normal mg/dL (Normal) Blood Gas Results Test 02/15/25 00:41 02/15/25 07:16 Arterial Blood pH 7.400 (7.350-7.450) 7.408 (7.350-7.450) FiO2 % 50.0 30.0 Microbiology Microbiology Date/Time Source Procedure Growth Status 02/09/25 21:28 Cerebral Spinal Fluid Gram Stain - Final Complete 02/09/25 21:28 Cerebral Spinal Fluid CSF Culture & Gram Stain (Tube 2) M - Final Complete 02/09/25 17:13 Blood Blood Culture - Final NO GROWTH AFTER 5 DAYS OF INCUBATION. Complete Assessment/Plan Assessment/Plan 69-year-old male with a no significant past medical history who initially presented to the hospital with generalized weakness starting from the left lower extremity then bilateral lower extremity along with sensory AND MOTOR DEFICIT all the way up to the nipple level found to have 1. Ascending motor and sensory deficit , ruled in C3-C5 cervical CERVICAL SPINE STENOSIS/CERVICAL MYELOPATHY/CENTRAL CORD SYNDROME 2. CERVICAL SPINE STENOSIS/CERVICAL MYELOPATHY/CENTRAL CORD SYNDROME STATUS POST ANTERIOR CERVICAL DISKECTOMY WITH A SPINAL CORD DECOMPRESSION AT C3-4-5 LEVEL POSTOP DAY ONE 3. POSTOP ACUTE HYPOXIC RESPIRATORY FAILURE REQUIRING CONTINUATION OF INTUBATION AND MECHANICAL VENTILATION 4. Chest pain ruled out MS, negative left heart catheterization 5. GB syndrome has been ruled out, -PATIENT IS STATUS POST ANTERIOR CERVICAL DISKECTOMY AT C3-4-5 LEVEL WITH SPINAL DECOMPRESSION -CONTINUE VENT SUPPORT DAILY ABG CHEST X-RAY, -CPAP TRIAL PER PULMONARY. Plan discussed with: Other My Orders Orders - AARON CESPEDES MD Procedure Category Date Status Time Respiratory Culture [place] 02/14/25 In Process W/ Gs 23:17 Date of Service: February 15, 2025 Billing Provider: AARON CESPEDES MD Common Visit Codes: NOT BILLABLE AARON CESPEDES MD February 15, 2025 12:37
[2025-02-15] MEDS: NOREPINEPHRINE 8 MG/250ML KIT 250 ML IV SCH (14:32)
--- NOTE | 2025-02-15 20:52 | DVHINCON2 ---
Date of service: February 15, 2025 Referring Physician Mikael Moore MD Reason for Consultation Acute hypoxic respiratory failure requiring mechanical vent postop History of Present Illness A 20-mape-aox-man with no significant past medical history who presented to ED on 02/10/25 with a chief complaint of generalized weakness, onset 3 months ago. Per patient's roommate, pt was in his normal state of health (ambulatory and without neuro deficit), then woke up one morning about 1.5 months ago experiencing left leg weakness. Weakness progressively worsened to involve both lower extremities, progressing to both upper extremities, to the point where he could no longer ambulate or hold objects. He also notes numbness that started in his lower extremities and now has ascended to bilateral upper extremities and his abdominal wall. About 1 week ago he began experiencing bilateral lower extremity swelling, difficulty breathing, and associated abdominal and back "tightness." Per friend, patient sought medical attention for the first time on day prior to presentation, was sent to [facility] for blood tests and referred to ED due to abnormal lab results. He was found to have a CK of 416 on ED workup. CXR was unremarkable, CT head w/o contrast showed no acute abnormality, BLE venous US with no DVT. Patient was admitted for further care, subsequently during hospitalization underwent C3- C5 fusion for cervical myelopathy. Pulmonary consultation is requested for evaluation and management of acute hypoxic respiratory failure requiring mechanical vent postop. Review of Systems: 14-point review of systems negative unless otherwise noted above. Past Medical History: Denies. Past Surgical History: Denies Medications: Reviewed. Allergies: No known drug allergies. Family History: No family history of premature CAD. No family history of lung disorders. Social History: Nonsmoker. Admits occasional use of marijuana and alcohol. Family History: Patient reports no known family medical history. Allergies: Coded Allergies: NO KNOWN ALLERGIES (Unverified , 02/09/25) Home Meds No Active Prescriptions or Reported Meds Current Medications Current Medications Medications (Trade) Dose Ordered Sig/Jeremiah Route PRN Reason Start Time Stop Time Status Last Admin Dextrose/Sodium Chloride 1,000 ml @ 100 mls/hr Q10H IV 02/14/25 21:00 02/15/25 08:44 DC Ondansetron HCl (Zofran) 4 mg Q4HP PRN IV NAUSEA / VOMITING 02/14/25 21:00 Acetaminophen (Tylenol Tablet) 650 mg Q6HP PRN PO MILD PAIN (1-3 PAIN SCALE) 02/14/25 21:00 Acetaminophen/ Hydrocodone Bitart ([place] 10/325MG Tab) 1 tab Q6HP PRN PO MODERATE PAIN (4-6 PAIN SCALE) 02/14/25 21:00 Morphine Sulfate 1 mg Q4HP PRN IV SEVERE PAIN (7-10 PAIN SCALE) 02/14/25 21:00 Cyclobenzaprine HCl (Flexeril Tablet) 10 mg TID PO 02/14/25 22:00 Docusate Sodium (Colace Capsule) 100 mg BID PO 02/14/25 22:00 Cefazolin Sodium 50 ml @ 100 mls/hr Q8HR IV 02/14/25 22:00 02/16/25 14:29 02/15/25 13:39 Hydralazine HCl (Apresoline Injection) 5 mg Q10M PRN IV SBP>160 02/14/25 21:15 02/14/25 22:06 DC Morphine Sulfate 2 mg Q2HPRN PRN IV BREAKTHROUGH PAIN (7-10) 02/14/25 21:15 02/14/25 21:37 DC Midazolam HCl (Versed Injection) 1 mg Q10M PRN IV ANXIETY 02/14/25 21:15 02/14/25 21:56 DC Ephedrine Sulfate (ePHEDrine SULFATE) 10 mg Q10M PRN IV SBP LESS THAN 90 02/14/25 21:15 02/14/25 21:56 DC Hydromorphone HCl (Dilaudid Injection) 0.5 mg Q10M PRN IV SEVERE PAIN (7-10 PAIN SCALE) 02/14/25 21:15 02/14/25 21:56 DC Midazolam HCl 50 ml @ 1 mls/hr Q24H IV 02/14/25 23:45 02/15/25 08:44 Fentanyl Citrate 250 ml @ 2.5 mls/hr Q24H IV 02/14/25 23:45 02/15/25 00:09 Lactated Ringer's 1,000 ml @ 75 mls/hr [id number] IV 02/15/25 00:00 02/15/25 08:44 DC 02/15/25 00:10 Lactated Ringer's 1,000 ml @ 125 mls/hr Q8H IV 02/15/25 08:45 02/15/25 17:28 Norepinephrine Bitartrate 250 ml @ 1.875 mls/ hr Q24H IV 02/15/25 13:30 Vital Signs Vital Signs Date Time Temp Pulse Resp B/P (MAP) Pulse Ox O2 Delivery O2 Flow Rate FiO2 02/15/25 20:14 49 18 92/44 (60) 100 30 02/15/25 18:30 98.4 209.1 02/15/25 17:37 Mechanical Ventilator+ 02/15/25 08:00 0 Physical Exam Gen.: Patient lying in bed in medical ICU. Sedated, intubated on mechanical ventilator. Head: Normocephalic, atraumatic. Eyes: PERRLA. Ears: Normal external anatomy. Throat: Endotracheal tube and orogastric tube in place. Neck: Supple, trachea midline. Chest: Transmitted breath sounds bilaterally. Decreased air entry bilaterally. No wheezing. Bibasilar crackles. Cardiovascular: Positive S1, positive S2. Regular rate and rhythm. Abdomen: Positive bowel sounds in all 4 quadrants. Soft, nontender, nondistended. : Prieto in place. Normal external genitalia. Rectal: Deferred. Skin: Warm, dry. Intact. Extremities: 2+ radial pulses bilaterally. No lower extremity edema. Neuro: Sedated. Labs/Diagnostic Data Labs Test 02/15/25 07:16 02/15/25 03:00 02/15/25 00:41 02/13/25 09:41 Range/Units Blood Gas Specimen Type Arterial Blood Gas Sample Site Right radial Blood Gas Patient Temperature 37.0 Arterial Blood Date Drawn [id number] Arterial Blood pH 7.408 7.350-7.450 Arterial Blood Partial Pressure CO2 35.7 35.0-48.0 mmHg Arterial Blood Partial Pressure O2 88.6 83.0-108.0 mmHg Arterial Blood HCO3 22.0 21.0-28.0 mmol/L Arterial Blood Oxygen Saturation 96.2 94.0-98.0 % Arterial Blood Base Excess -2.0 -2.0-3.0 mmol/L Arterial Blood Oxyhemoglobin 95.8 94.0-98.0 % Arterial Blood Carboxyhemoglobin 0.3 L 0.5-1.5 % Arterial Blood Methemoglobin 0.1 0.0-1.5 % Ghanshyam Test Modified Blood Gas Total Hemoglobin 16.20 13.5-17.5 g/dL Blood Gas Set Respiration Rate 18.0 Blood Gas Modality Vent - ac FiO2 % 30.0 Blood Gas Tidal Volume 500.0 Blood Gas PEEP or CPAP 5.0 White Blood Count 8.2 # 4.4-10.8 10^3/uL Red Blood Count 4.77 4.5-5.90 10^6/uL Hemoglobin 15.9 13.5-17.5 g/dL Hematocrit 44.6 # 41.0-53.0 % Mean Corpuscular Volume 93.5 80.0-100.0 fL Mean Corpuscular Hemoglobin 33.4 H 28.0-32.0 pg Mean Corpuscular Hemoglobin Concent 35.7 32.0-36.0 g/dL Red Cell Distribution Width 13.0 11.8-14.3 % Platelet Count 172 140-450 10^3/uL Mean Platelet Volume 7.9 6.9-10.8 fL Neutrophils (%) (Auto) 85.4 H 37.0-80.0 % Lymphocytes (%) (Auto) 9.1 L 10.0-50.0 % Monocytes (%) (Auto) 5.3 0.0-12.0 % Eosinophils (%) (Auto) 0.1 0.0-7.0 % Basophils (%) (Auto) 0.1 0.0-2.0 % Neutrophils # (Auto) 7.0 1.6-8.6 10 ^3/uL Lymphocytes # (Auto) 0.7 0.4-5.4 10 ^3/uL Monocytes # (Auto) 0.4 0-1.3 10 ^3/uL Eosinophils # (Auto) 0 0-0.8 10 ^3/uL Basophils # (Auto) 0 0-0.2 10 ^3/uL Nucleated Red Blood Cells 0.0 % Sodium Level 135 L 136-145 mmol/L Potassium Level 4.6 3.5-5.1 mmol/L Chloride Level 103 98-107 mmol/L Carbon Dioxide Level 24 20-31 mmol/L Anion Gap 8 5-15 Blood Urea Nitrogen 25 H 9-23 mg/dL Creatinine 0.72 0.700-1.30 mg/dL Glomerular Filtration Rate Calc 100 >90 mL/min BUN/Creatinine Ratio 34.7 H 10.0-20.0 Serum Glucose 174 H 74-106 mg/dL Calcium Level 8.6 L 8.7-10.4 mg/dL Magnesium Level 2.1 1.6-2.6 mg/dL Blood Gas Spontaneous Tidal Volume 500 Blood Gas Notified Time [id number] Vitamin B12 Level 304 211-911 pg/mL Homocysteine 13.2 0.0-17.2 umol/L Test 02/11/25 06:07 02/10/25 15:20 02/10/25 05:44 02/09/25 21:28 Range/Units Folic Acid 12.00 >5.38 ng/mL D-Dimer, Quantitative 0.91 H 0.0-0.49 mg/L FEU Troponin I High Sensitivity 11 </=54 ng/L Prothrombin Time 10.9 9.3-11.8 sec Prothrombin Time INR 1.03 0.9-1.15 Creatine Kinase MB 8.0 0.0-10.4 ng/mL CSF Tube Number Tube 3 CSF Appearance Clear, colorless CSF WBC 1 0-5 CUMM CSF RBC 66 H 0-5 CUMM CSF Protein (Tube 2) 73.9 H 15-45 mg/dL CSF Mononuclear Cells % CSF Polymorphonuclear Cells % CSF Glucose 60 40-70 mg/dL Test 02/09/25 17:13 02/09/25 00:00 Range/Units Phosphorus Level 3.4 2.4-5.1 mg/dL Total Bilirubin 0.7 0.2-1.0 mg/dL Aspartate Amino Transferase (AST) 25 13-40 U/L Alanine Aminotransferase (ALT) 22 7-40 U/L Alkaline Phosphatase 89 46-116 U/L Creatine Kinase 416 H 46-171 U/L B-Type Natriuretic Peptide 90.03 0-100 pg/mL Total Protein 7.0 5.7-8.2 g/dL Albumin 4.1 3.2-4.8 g/dL Urine Color Light-yellow Yellow Urine Clarity Turbid H Clear Urine pH 7.0 5.0-9.0 Urine Specific [place] 1.019 1.001-1.035 Urine Protein Negative Negative Urine Ketones Negative Negative Urine Blood Trace H Negative /uL Urine Nitrite Negative Negative Urine Bilirubin Negative Negative Urine Urobilinogen Normal Negative mg/dL Urine Leukocyte Esterase Negative Negative /uL Urine RBC <1 0 - 3 /hpf Urine Microscopic WBC < 1 0-3 /HPF Urine Squamous Epithelial Cells Few <5 /hpf Urine Amorphous Crystals Few None Seen /hpf Urine Bacteria Few H None Seen /hpf Urine Glucose Normal Normal mg/dL Microbiology Date/Time Source Procedure Growth Status 02/14/25 23:00 Nose MRSA Screen - Final Complete 02/09/25 21:28 Cerebral Spinal Fluid Gram Stain - Final Complete 02/09/25 21:28 Cerebral Spinal Fluid CSF Culture & Gram Stain (Tube 2) M - Final Complete 02/09/25 17:13 Blood Blood Culture - Final NO GROWTH AFTER 5 DAYS OF INCUBATION. Complete Assessment Impression: Acute hypoxic respiratory failure, post-operative S/p C3-C5 fusion for cervical myelopathy On mechanical ventilator Pulmonary edema Elevated D-dimer GBS ruled out Overweight, BMI 29.4 Plan: s/p intubation on mechanical ventilator. CXR image and report reviewed. Devices in place. Cardiomegaly w/ mild congestion ABG reviewed, compensated. On AC mode; RR 18, VT 500, PEEP 5, FiO2 30% Titrate FIO2 to keep O2 saturation above 90%. VAP bundle. Daily ABG and CXR while intubated Sedate for ventilator synchrony - Versed 2 mg, Fentanyl 100 mcg Continue antibiotics. F/u cultures. IV steroids Follow up Cardiology recs Pressors as necessary for hemodynamic support Titrate to keep mean arterial pressure greater than 65 mmHg. Monitor blood pressure IV fluids with LR at 125 ml/hr Monitor renal function Monitor electrolytes. Supplement as necessary. Monitor ins and outs. Maintain euvolemia. Taper sedation CPAP in AM. Patient did not tolerate sedation vacation Monitor Saran drain - 10 mL output Diet and lifestyle modifications for weight reduction GI prophylaxis. DVT prophylaxis. Prognosis: Poor given patient's multiple co-morbidities. Condition: Critical Rest of plan per hospitalist and other consultants. A total of 35 minutes of critical care time was spent reviewing the patient record, examining the patient, making a diagnostic and therapeutic plan, discussing this plan with the medical personnel, following up on diagnostic studies and following the patient for clinical stability excluding any and all procedures. At least 50% of this time was spent in direct, [id number] contact. Thank you Dr. Bland for allowing me to participate in this patient's care. Further recommendations will depend on the patient's clinical course. Please do not hesitate to contact me if you have any questions or concerns. This medical document was created using an electronic medical record system with [employer] computerized dictation system. Although these documentations are being carefully reviewed, there may still be some phonetic and typographical changes. The errors are purely typographical, due to imperfection on the software program, and do not reflect any compromise in the patient's medical care. Plan discussed with: Other (DANE Forbes/Dr. Bland) INGA ALMODOVAR MD February 15, 2025 20:52
[2025-02-16] VITALS (111 sets, daily range): BP systolic 58–184; BP diastolic 38–102; PULSE 41–92; RESP 8–24; TEMP 97.2–98.6; O2SAT 10–100
[2025-02-16 04:03] LABS: Basophils # (auto) 0 10 ^3/uL (0-0.2); Eosinophils # (auto) 0 10 ^3/uL (0-0.8); Hematocrit 42.8 % (41.0-53.0); Hemoglobin 14.9 g/dL (13.5-17.5); Lymphocytes # (auto) 0.6 10 ^3/uL (0.4-5.4); Lymphocytes % (auto) 8.2 % (10.0-50.0); Mean Corpuscular Hemoglobin 32.7 pg (28.0-32.0); Mean Corpuscular Hgb Conc. 34.9 g/dL (32.0-36.0); Mean Corpuscular Volume 93.9 fL (80.0-100.0); Monocytes # (auto) 0.3 10 ^3/uL (0-1.3); Monocytes % (auto) 4.8 % (0.0-12.0); Neutrophils # (auto) 5.9 10 ^3/uL (1.6-8.6); Platelet Count (auto) 180 10^3/uL (140-450); Red Blood Cells 4.56 10^6/uL (4.5-5.90); Red Cell Distribution Width 12.8 % (11.8-14.3); White Blood Cell 6.7 10^3/uL (4.4-10.8)
[2025-02-16 04:13] LABS: Anion Gap 8 (5-15); Calcium 9.1 mg/dL (8.7-10.4); Carbon Dioxide 25 mmol/L (20-31); Chloride 103 mmol/L (98-107); Potassium 4.6 mmol/L (3.5-5.1); Sodium 136 mmol/L (136-145)
[2025-02-16 04:19] LABS: BUN/Creatinine Ratio 44.1 (10.0-20.0)
[2025-02-16 04:20] LABS: Magnesium 2.1 mg/dL (1.6-2.6)
[2025-02-16 04:22] LABS: Blood Urea Nitrogen 30 mg/dL (9-23); Glucose 176 mg/dL (74-106)
--- NOTE | 2025-02-16 05:50 | DVHPN2 ---
Progress Note - Surgical Date Seen: February 16, 2025 Post op day Post op day: 2 Subjective Patient reports: No new complaints, Other (Patient is intubated and sedated in the ICU) Review of Systems: HEENT:Normal, CVS:Normal, RESPIRATORY:Normal, GI:Normal, :Normal, MSK:Abnormal (Profound weakness preoperatively to all extremities bilateral upper extremities worse than bilateral lower extremities), NEURO:Abnormal (Decreased sensation nipple line down preoperatively) Objective Vital signs Vital Sign Date Time Temp Pulse Resp B/P (MAP) Pulse Ox O2 Delivery O2 Flow Rate FiO2 02/16/25 04:15 98.4 51 18 103/49 (67) 100 209.1 97/86 (90) 02/16/25 04:02 30 02/16/25 04:00 Mechanical Ventilator+ 02/15/25 20:00 0 Total Intake and Output 02/15/25 02/15/25 02/16/25 15:00 23:00 07:00 Intake Total 1146.0 ml 1191.750 ml 820.750 ml Output Total 760 ml Balance 1146.0 ml 431.750 ml 820.750 ml Medications Current Medications Medications Dose Ordered Sig/Jeremiah Route Start Time Stop Time Status Last Admin Dose Admin Nitroglycerin 0.4 mg Q5MINP PRN SL 02/10/25 12:45 02/10/25 13:26 0.4 MG Morphine Sulfate 2 mg [id number] PRN IV 02/10/25 12:45 02/10/25 13:23 2 MG Sennosides 17.2 mg HS PO 02/10/25 22:00 02/13/25 22:22 17.2 MG Diphenhydramine HCl 25 mg PRN PRN IV 02/11/25 08:15 Baclofen 10 mg TID PRN PO 02/13/25 14:45 02/14/25 10:20 10 MG Methylprednisolone Sodium Succinate 80 mg Q8HR IV 02/13/25 22:00 02/15/25 21:58 80 MG Ondansetron HCl 4 mg Q4HP PRN IV 02/14/25 21:00 Acetaminophen 650 mg Q6HP PRN PO 02/14/25 21:00 Acetaminophen/ Hydrocodone Bitart 1 tab Q6HP PRN PO 02/14/25 21:00 Morphine Sulfate 1 mg Q4HP PRN IV 02/14/25 21:00 Cyclobenzaprine HCl 10 mg TID PO 02/14/25 22:00 Docusate Sodium 100 mg BID PO 02/14/25 22:00 Cefazolin Sodium 50 ml @ 100 mls/hr Q8HR IV 02/14/25 22:00 02/16/25 14:29 02/15/25 21:58 100 MLS/HR Midazolam HCl 50 ml @ 1 mls/hr Q24H IV 02/14/25 23:45 02/15/25 08:44 3 MLS/HR Fentanyl Citrate 250 ml @ 2.5 mls/hr Q24H IV 02/14/25 23:45 02/16/25 00:32 7.5 MLS/HR Lactated Ringer's 1,000 ml @ 125 mls/hr Q8H IV 02/15/25 08:45 02/15/25 23:23 125 MLS/HR Norepinephrine Bitartrate 250 ml @ 1.875 mls/ hr Q24H IV 02/15/25 13:30 02/15/25 21:02 1.875 MLS/HR Laboratory Laboratory Tests 02/16/25 03:00 Test 02/16/25 03:00 Range/Units Serum Glucose 176 H 74-106 mg/dL Microbiology Date/Time Source Procedure Growth Status 02/14/25 23:00 Nose MRSA Screen - Final Complete 02/09/25 21:28 Cerebral Spinal Fluid Gram Stain - Final Complete 02/09/25 21:28 Cerebral Spinal Fluid CSF Culture & Gram Stain (Tube 2) M - Final Complete 02/09/25 17:13 Blood Blood Culture - Final NO GROWTH AFTER 5 DAYS OF INCUBATION. Complete Examination: GENERAL:Abnormal (Intubated and sedated in the ICU), HEENT:Normal, NECK:Normal (Left anterior surgical wound as expected well approximated with gregg drain intact), LUNGS:Abnormal (Mechanical ventilation required pink frothy secretions present ), CVS:Abnormal (Bouts of bradycardia and hypotension reported), ABDOMEN:Normal, MSK:Normal (patient MON 4/5 BLE, #/% right UE (better than preop) left arm not assesed due to art line, patient is able to flex and extend fingers of left hand), SKIN:Abnormal (Scattered areas of abrasions from scratching since patient can not feel how much pressure he is exerting was scratching to lower legs, surgical site is as expected postoperatively see neck assessment), NEURO:Abnormal (Limited exam due to sedation- patient is following all requests, focused and tracking), :Abnormal (Prieto catheter in place) Problem List/Assessment/Plan Problems: (1) Muscle spasms of neck (2) Postoperative pain after spinal surgery (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 (4) 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 Assessment and Plan Patient seen on spine surgery rounds today in the ICU Patient remains intubated and sedated, requiring more sedation due to agitation Left anterior surgical site well approximated with gregg, one anchor suture in place Drain discontinued today Patient is following simple and complex commands Further care and management per admitting team's discretion Patient is able to be extubated from a spine surgery perspective when he is determined to be safe to extubate per Pulmonary PT evaluation and assessment when able Call with questions Sincere Noland [facility] Orthopaedic Spine Surgery nurse practitioner For Dr Chet Zaldivar Patient was examined, chart reviewed, labs evaluated, and diagnostic studies and findings analyzed. Case was discussed with Dr. Rk Zaldivar who formulated the plan of care. This medical document was created using an electronic medical record system with [employer] dictation system. Although this document has been carefully reviewed, there might still be some phonetic and typographical errors. These areas are purely typographical due to imperfections of the software programs, and do not reflect any compromise in the patient's medical care. My Orders My Orders Orders - KAREN NOLAND NP Procedure Category Date Status Time Norepinephrine 8 PHA 02/15/25 In Process Mg/250ml Kit 13:30 Cpap Trial For Am ORDERS 02/15/25 Transmitted 13:27 Plan discussed with Plan discussed with: Patient, Other (bedside CONSULTING ENGINEER) Visit Coding Surgery Date of Service if different f: February 16, 2025 Billing Provider: KAREN NOLAND NP Surgery Visit Codes: NOT BILLABLE KAREN NOLAND NP February 16, 2025 05:50
[2025-02-16 07:25] LABS: Base Excess 0.5 mmol/L (-2.0-3.0)
[2025-02-16] MEDS: PROPOFOL 100 ML IV SCH (08:30)
[2025-02-16] MEDS: DEXMEDETOMIDINE HCL IN D5W 100 ML IV SCH (08:30)
--- NOTE | 2025-02-16 11:14 | ECG ---
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
--- NOTE | 2025-02-16 11:40 | DVHPN2 ---
Progress Note - Dictate Date Seen: February 16, 2025 Medical Necessity Reason Pt with a Central, PICC or Fol: No Subjective Apparently patient became bradycardic overnight heart rate in the 30s however no interventions needed to be taken. Patient remains intubated. Sedation vacation is being done at present. He is more awake and alert. Heart rate in the 60s. Systolic Blood pressure in the 150s to 160s. Per nurse he is having some slight blood-tinged cough and secretions from his mouth that needed to be suctioned. vital signs Vital Sign Date Time Temp Pulse Resp B/P (MAP) Pulse Ox O2 Delivery O2 Flow Rate FiO2 02/16/25 11:28 63 20 175/83 (113) 99 30 02/16/25 11:15 97.7 207.9 02/16/25 09:40 Mechanical Ventilator+ 02/15/25 20:00 0 Total Intake and Output 02/15/25 02/15/25 02/16/25 15:00 23:00 07:00 Intake Total 1146.0 ml 1141.750 ml 1141.500 ml Output Total 760 ml Balance 1146.0 ml 381.750 ml 1141.500 ml medications Current Medications Medications Dose Ordered Sig/Jeremiah Route Start Time Stop Time Status Last Admin Dose Admin Nitroglycerin 0.4 mg Q5MINP PRN SL 02/10/25 12:45 02/10/25 13:26 0.4 MG Morphine Sulfate 2 mg [id number] PRN IV 02/10/25 12:45 02/10/25 13:23 2 MG Sennosides 17.2 mg HS PO 02/10/25 22:00 02/13/25 22:22 17.2 MG Diphenhydramine HCl 25 mg PRN PRN IV 02/11/25 08:15 Baclofen 10 mg TID PRN PO 02/13/25 14:45 02/14/25 10:20 10 MG Methylprednisolone Sodium Succinate 80 mg Q8HR IV 02/13/25 22:00 02/16/25 06:02 80 MG Ondansetron HCl 4 mg Q4HP PRN IV 02/14/25 21:00 Acetaminophen 650 mg Q6HP PRN PO 02/14/25 21:00 Acetaminophen/ Hydrocodone Bitart 1 tab Q6HP PRN PO 02/14/25 21:00 Morphine Sulfate 1 mg Q4HP PRN IV 02/14/25 21:00 Cyclobenzaprine HCl 10 mg TID PO 02/14/25 22:00 Docusate Sodium 100 mg BID PO 02/14/25 22:00 Cefazolin Sodium 50 ml @ 100 mls/hr Q8HR IV 02/14/25 22:00 02/16/25 14:29 02/16/25 06:02 100 MLS/HR Midazolam HCl 50 ml @ 1 mls/hr Q24H IV 02/14/25 23:45 02/15/25 08:44 3 MLS/HR Fentanyl Citrate 250 ml @ 2.5 mls/hr Q24H IV 02/14/25 23:45 02/16/25 00:32 7.5 MLS/HR Lactated Ringer's 1,000 ml @ 125 mls/hr Q8H IV 02/15/25 08:45 02/16/25 08:14 125 MLS/HR Norepinephrine Bitartrate 250 ml @ 1.875 mls/ hr Q24H IV 02/15/25 13:30 02/15/25 21:02 1.875 MLS/HR Propofol 100 ml @ 2.307 mls/ hr Q24H IV 02/16/25 08:30 objective On the ventilator. HEENT neck supple no JVD. Heart regular rate and rhythm S1 plus S2. Lungs fair air movement with a chest tube will expansion. Abdomen soft nontender positive bowel sounds. Extremities no edema positive pulses. laboratory and microbiology Laboratory Tests 02/16/25 03:00 Test 02/16/25 03:00 Range/Units Serum Glucose 176 H 74-106 mg/dL Assessment/Plan Given a secretions from his mouth we will keep him intubated overnight to prevent any aspiration. Meantime continue sedation vacation trials for pulmonary recommendations. We will start him on Clinimix IV nutrition. Otherwise continue Versed and fentanyl as he is on. Avoid Precedex and propofol due to bradycardia. Continue rest of supportive care and treatment. Further clinical management per clinical course. Discussed with the nurse at bedside regarding his care plan. 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 Plan discussed with: MELE Echavarria MD February 16, 2025 11:40
[2025-02-16] MEDS: GLYCOPYRROLATE 0.2 MG/ML 1ML VIAL IV ONE (16:42)
--- NOTE | 2025-02-16 18:45 | DVHPN2 ---
Progress Note - Dictate Date Seen: February 16, 2025 Medical Necessity Reason Pt with a Central, PICC or Fol: No Subjective Patient seen and examined at bedside. Sedated, intubated on mechanical ventilator. Overnight events reviewed. vital signs Vital Sign Date Time Temp Pulse Resp B/P (MAP) Pulse Ox O2 Delivery O2 Flow Rate FiO2 02/16/25 18:15 57 18 95/76 (82) 100 30 02/16/25 14:45 98.4 209.1 02/16/25 13:40 Mechanical Ventilator+ 02/15/25 20:00 0 Total Intake and Output 02/15/25 02/15/25 02/16/25 15:00 23:00 07:00 Intake Total 1146.0 ml 1141.750 ml 1141.500 ml Output Total 760 ml Balance 1146.0 ml 381.750 ml 1141.500 ml medications Current Medications Medications Dose Ordered Sig/Jeremiah Route Start Time Stop Time Status Last Admin Dose Admin Nitroglycerin 0.4 mg Q5MINP PRN SL 02/10/25 12:45 02/10/25 13:26 0.4 MG Morphine Sulfate 2 mg [id number] PRN IV 02/10/25 12:45 02/10/25 13:23 2 MG Sennosides 17.2 mg HS PO 02/10/25 22:00 02/13/25 22:22 17.2 MG Diphenhydramine HCl 25 mg PRN PRN IV 02/11/25 08:15 Baclofen 10 mg TID PRN PO 02/13/25 14:45 02/14/25 10:20 10 MG Methylprednisolone Sodium Succinate 80 mg Q8HR IV 02/13/25 22:00 02/16/25 16:42 80 MG Ondansetron HCl 4 mg Q4HP PRN IV 02/14/25 21:00 Acetaminophen 650 mg Q6HP PRN PO 02/14/25 21:00 Acetaminophen/ Hydrocodone Bitart 1 tab Q6HP PRN PO 02/14/25 21:00 Morphine Sulfate 1 mg Q4HP PRN IV 02/14/25 21:00 Cyclobenzaprine HCl 10 mg TID PO 02/14/25 22:00 Docusate Sodium 100 mg BID PO 02/14/25 22:00 Midazolam HCl 50 ml @ 1 mls/hr Q24H IV 02/14/25 23:45 02/16/25 16:20 1 MLS/HR Fentanyl Citrate 250 ml @ 2.5 mls/hr Q24H IV 02/14/25 23:45 02/16/25 00:32 7.5 MLS/HR Lactated Ringer's 1,000 ml @ 125 mls/hr Q8H IV 02/15/25 08:45 02/16/25 08:14 125 MLS/HR Norepinephrine Bitartrate 250 ml @ 1.875 mls/ hr Q24H IV 02/15/25 13:30 02/15/25 21:02 1.875 MLS/HR Propofol 100 ml @ 2.307 mls/ hr Q24H IV 02/16/25 08:30 objective Gen.: Patient lying in bed in medical ICU. Sedated, intubated on mechanical ventilator. Head: Normocephalic, atraumatic. Eyes: PERRLA. Ears: Normal external anatomy. Throat: Endotracheal tube and orogastric tube in place. Neck: Supple, trachea midline. Chest: Transmitted breath sounds bilaterally. Decreased air entry bilaterally. No wheezing. Bibasilar crackles. Cardiovascular: Positive S1, positive S2. Regular rate and rhythm. Abdomen: Positive bowel sounds in all 4 quadrants. Soft, nontender, nondistended. : Prieto in place. Normal external genitalia. Rectal: Deferred. Skin: Warm, dry. Intact. Extremities: 2+ radial pulses bilaterally. No lower extremity edema. Neuro: Sedated. laboratory and microbiology Laboratory Tests 02/16/25 03:00 Test 02/16/25 03:00 Range/Units Serum Glucose 176 H 74-106 mg/dL Assessment/Plan Impression: Acute hypoxic respiratory failure, postop S/p C3-C5 fusion for cervical myelopathy On mechanical ventilator Pulmonary edema Elevated D-dimer GBS ruled out Overweight, BMI 29.4 Events: Remains on vent support On AC mode; RR 18, VT 500, PEEP 5, FiO2 30% On Versed, Fentanyl drip Pressors as necessary for hemodynamic support Levophed 0.5 mcg/min Titrate to keep mean arterial pressure greater than 65 mmHg. Continue abx Strong cough and gag. Increased oral secretions Glycopyrrolate x1 IVP given ABG reviewed, notable for alkalemia Labs and imaging reviewed. Rest of plan as noted below. Plan: s/p intubation on mechanical ventilator. CXR image and report reviewed. Devices in place. Cardiomegaly w/ mild congestion On AC mode; RR 18, VT 500, PEEP 5, FiO2 30% Titrate FIO2 to keep O2 saturation above 90%. VAP bundle. Daily ABG and CXR while intubated Sedate for ventilator synchrony Continue antibiotics. F/u cultures. IV steroids Cardiology recs appreciated Pressors as necessary for hemodynamic support Titrate to keep mean arterial pressure greater than 65 mmHg. Monitor blood pressure IV fluids with LR at 125 ml/hr Monitor renal function Monitor electrolytes. Supplement as necessary. Monitor ins and outs. Maintain euvolemia. SBT/KARISSA. Monitor Saran drain output Diet and lifestyle modifications for weight reduction GI prophylaxis. DVT prophylaxis. Prognosis: Poor given patient's multiple co-morbidities. Condition: Critical Rest of plan per hospitalist and other consultants. A total of 35 minutes of critical care time was spent reviewing the patient record, examining the patient, making a diagnostic and therapeutic plan, discussing this plan with the medical personnel, following up on diagnostic studies and following the patient for clinical stability excluding any and all procedures. At least 50% of this time was spent in direct, [id number] contact. Thank you Dr. Bland for allowing me to participate in this patient's care. Further recommendations will depend on the patient's clinical course. Please do not hesitate to contact me if you have any questions or concerns. This medical document was created using an electronic medical record system with [employer] dictation system. Although these documentations are being carefully reviewed, there may still be some phonetic and typographical changes. The errors are purely typographical, due to imperfection on the software program, and do not reflect any compromise in the patient's medical care. Dietary Evaluation Review Comments: Monitor PO itnake to meet 75% of his needs Expected Outcomes/Goals: maitain Wt. Plan discussed with: Other (DANE Doshi) Critical Care Time(min): 35 INGA ALMODOVAR MD February 16, 2025 18:45
[2025-02-16] MEDS: MORPHINE SULFATE INJ 2 MG/ml SYRG IV PRN (21:51)
--- NOTE | 2025-02-16 22:27 | DVHPN2 ---
Progress Note - Dictate Date Seen: February 16, 2025 Medical Necessity Reason Pt with a Central, PICC or Fol: No Subjective Patient was seen and evaluated in follow up in the ICU. Patient is intubated and sedated on ventilator. 30% FiO2. Overnight, patients HR dropped into the 30's. Patient having blood-tinged cough and secretions from his mouth that required suctioning. Patient is responsive to verbal stimuli. BUN 30. vital signs Vital Sign Date Time Temp Pulse Resp B/P (MAP) Pulse Ox O2 Delivery O2 Flow Rate FiO2 02/16/25 11:40 30 02/16/25 11:40 18 100 Mechanical Ventilator+ 02/16/25 11:28 63 175/83 (113) 02/16/25 11:15 97.7 207.9 02/15/25 20:00 0 Total Intake and Output 02/15/25 02/15/25 02/16/25 15:00 23:00 07:00 Intake Total 1146.0 ml 1141.750 ml 1141.500 ml Output Total 760 ml Balance 1146.0 ml 381.750 ml 1141.500 ml medications Current Medications Medications Dose Ordered Sig/Jeremiah Route Start Time Stop Time Status Last Admin Dose Admin Nitroglycerin 0.4 mg Q5MINP PRN SL 02/10/25 12:45 02/10/25 13:26 0.4 MG Morphine Sulfate 2 mg [id number] PRN IV 02/10/25 12:45 02/10/25 13:23 2 MG Sennosides 17.2 mg HS PO 02/10/25 22:00 02/13/25 22:22 17.2 MG Diphenhydramine HCl 25 mg PRN PRN IV 02/11/25 08:15 Baclofen 10 mg TID PRN PO 02/13/25 14:45 02/14/25 10:20 10 MG Methylprednisolone Sodium Succinate 80 mg Q8HR IV 02/13/25 22:00 02/16/25 06:02 80 MG Ondansetron HCl 4 mg Q4HP PRN IV 02/14/25 21:00 Acetaminophen 650 mg Q6HP PRN PO 02/14/25 21:00 Acetaminophen/ Hydrocodone Bitart 1 tab Q6HP PRN PO 02/14/25 21:00 Morphine Sulfate 1 mg Q4HP PRN IV 02/14/25 21:00 Cyclobenzaprine HCl 10 mg TID PO 02/14/25 22:00 Docusate Sodium 100 mg BID PO 02/14/25 22:00 Cefazolin Sodium 50 ml @ 100 mls/hr Q8HR IV 02/14/25 22:00 02/16/25 14:29 02/16/25 06:02 100 MLS/HR Midazolam HCl 50 ml @ 1 mls/hr Q24H IV 02/14/25 23:45 02/15/25 08:44 3 MLS/HR Fentanyl Citrate 250 ml @ 2.5 mls/hr Q24H IV 02/14/25 23:45 02/16/25 00:32 7.5 MLS/HR Lactated Ringer's 1,000 ml @ 125 mls/hr Q8H IV 02/15/25 08:45 02/16/25 08:14 125 MLS/HR Norepinephrine Bitartrate 250 ml @ 1.875 mls/ hr Q24H IV 02/15/25 13:30 02/15/25 21:02 1.875 MLS/HR Propofol 100 ml @ 2.307 mls/ hr Q24H IV 02/16/25 08:30 objective GENERAL: Ill appearing, intubated on ventilator. EYES: PERRL, EOMI. Anicteric. HENT: Moist mucous membranes. LUNGS: Decreased breath sounds. CARDIOVASCULAR: Regular rate and rhythm. ABDOMEN: Soft, nontender and nondistended. EXTREMITIES: No edema. SKIN: Warm, dry. laboratory and microbiology Laboratory Tests 02/16/25 03:00 Test 02/16/25 03:00 Range/Units Serum Glucose 176 H 74-106 mg/dL Problem List Chest pain. Ascending paralysis. Elevated CK level. Cervical spinal stenosis/myelopathy/central cord syndrome. Assessment/Plan Continued all current supportive medical care. Morphine for pain management. Nitro sublingual. Additional plan as per the hospital course. Critical care time of 45 minutes provided to include time spent evaluation of patient at bedside, when appropriate patient/family education for diagnosis, treatment plan, review of pertinent medical information and discussion of care with specialty providers and PCP. Mechanical ventilator parameters, treatment and adjustments have personally been reviewed by me and treatment plan by tire adjuster has also been reviewed. Dietary Evaluation Review Comments: Monitor PO itnake to meet 75% of his needs Expected Outcomes/Goals: bright [place]. Plan discussed with: RITA Pozo MD February 16, 2025 12:52
[2025-02-17] VITALS (101 sets, daily range): BP systolic 82–153; BP diastolic 49–84; PULSE 38–68; RESP 8–20; TEMP 97.4–98.1; O2SAT 95–100
[2025-02-17 04:21] LABS: Basophils # (auto) 0 10 ^3/uL (0-0.2); Basophils % (auto) 0.1 % (0.0-2.0); Eosinophils # (auto) 0 10 ^3/uL (0-0.8); Hematocrit 47.2 % (41.0-53.0); Hemoglobin 17.1 g/dL (13.5-17.5); Lymphocytes # (auto) 0.6 10 ^3/uL (0.4-5.4); Mean Corpuscular Hemoglobin 35.7 pg (28.0-32.0); Mean Corpuscular Hgb Conc. 36.1 g/dL (32.0-36.0); Mean Corpuscular Volume 98.9 fL (80.0-100.0); Monocytes # (auto) 0.4 10 ^3/uL (0-1.3); Neutrophils # (auto) 5.3 10 ^3/uL (1.6-8.6); Neutrophils % (auto) 83.9 % (37.0-80.0); Nucleated Red Blood Cells % 0.3 %; Platelet Count (auto) 140 10^3/uL (140-450); Red Blood Cells 4.77 10^6/uL (4.5-5.90); Red Cell Distribution Width 12.6 % (11.8-14.3); White Blood Cell 6.4 10^3/uL (4.4-10.8)
[2025-02-17 04:30] LABS: Chloride 104 mmol/L (98-107); Potassium 4.2 mmol/L (3.5-5.1)
[2025-02-17 04:31] LABS: Anion Gap 8 (5-15); Calcium 9.1 mg/dL (8.7-10.4); Carbon Dioxide 22 mmol/L (20-31)
[2025-02-17 04:36] LABS: BUN/Creatinine Ratio 33.3 (10.0-20.0); Blood Urea Nitrogen 18 mg/dL (9-23)
[2025-02-17 04:45] LABS: Glucose 159 mg/dL (74-106); Sodium 134 mmol/L (136-145)
--- NOTE | 2025-02-17 05:54 | DVH ---
CHEST RADIOGRAPH Indication: INTUBATED Technique: Single frontal view of the chest was obtained Comparison: XY CHEST PORTABLE on DOS: 02/15/25, XY CHEST PORTABLE on DOS: 02/09/25 IMPRESSION: Heart is prominent size. Interstitial prominence appear similar. No sizable effusion or pneumothorax. There has been interval extubation.
--- NOTE | 2025-02-17 12:28 | DVHPN2 ---
Progress Note - Dictate Date Seen: February 17, 2025 Medical Necessity Reason Pt with a Central, PICC or Fol: No Subjective Patient apparently self-extubated yesterday late afternoon per nurse. Currently he is awake and alert with a normal mentation. Wants to eat. Family at bedside. vital signs Vital Sign Date Time Temp Pulse Resp B/P (MAP) Pulse Ox O2 Delivery O2 Flow Rate FiO2 02/17/25 10:16 49 13 144/62 (89) 100 142/61 (88) 02/17/25 10:00 Room Air* 0 21 02/17/25 09:01 97.8 97.8 Total Intake and Output 02/16/25 02/16/25 02/17/25 15:00 23:00 07:00 Intake Total 1088.478 ml 765.628 ml 1003.752 ml Output Total 0 ml Balance 1088.478 ml 765.628 ml 1003.752 ml medications Current Medications Medications Dose Ordered Sig/Jeremiah Route Start Time Stop Time Status Last Admin Dose Admin Nitroglycerin 0.4 mg Q5MINP PRN SL 02/10/25 12:45 02/10/25 13:26 0.4 MG Morphine Sulfate 2 mg [id number] PRN IV 02/10/25 12:45 02/10/25 13:23 2 MG Sennosides 17.2 mg HS PO 02/10/25 22:00 02/13/25 22:22 17.2 MG Diphenhydramine HCl 25 mg PRN PRN IV 02/11/25 08:15 Baclofen 10 mg TID PRN PO 02/13/25 14:45 02/14/25 10:20 10 MG Methylprednisolone Sodium Succinate 80 mg Q8HR IV 02/13/25 22:00 02/17/25 05:39 80 MG Ondansetron HCl 4 mg Q4HP PRN IV 02/14/25 21:00 Acetaminophen 650 mg Q6HP PRN PO 02/14/25 21:00 Acetaminophen/ Hydrocodone Bitart 1 tab Q6HP PRN PO 02/14/25 21:00 Morphine Sulfate 1 mg Q4HP PRN IV 02/14/25 21:00 02/17/25 04:03 1 MG Cyclobenzaprine HCl 10 mg TID PO 02/14/25 22:00 Docusate Sodium 100 mg BID PO 02/14/25 22:00 Lactated Ringer's 1,000 ml @ 125 mls/hr Q8H IV 02/15/25 08:45 02/17/25 07:49 125 MLS/HR Norepinephrine Bitartrate 250 ml @ 1.875 mls/ hr Q24H IV 02/15/25 13:30 02/15/25 21:02 1.875 MLS/HR objective Self extubated yesterday. Comfortable in bed talking without any problems. HEENT neck supple no JVD. Heart regular rate and rhythm S1 plus S2. Lungs fair air movement with a chest tube will expansion. Abdomen soft nontender positive bowel sounds. Extremities no edema positive pulses. laboratory and microbiology Laboratory Tests 02/17/25 03:33 Test 02/17/25 03:33 Range/Units Serum Glucose 159 H 74-106 mg/dL Assessment/Plan Swallow evaluation. Clear liquid diet and advance as tolerates. Physical therapy and occupational therapy consultation. Continue rest of supportive care and treatment. Consider downgrade to telemetry floor if he remains stable this afternoon. Discussed with the patient as well as family members at bedside regarding his care plan and nurse in the ICU. 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 Plan discussed with: Patient, Spouse, Other MELE HUNTER MD February 17, 2025 12:28
--- NOTE | 2025-02-17 22:35 | DVHPN2 ---
Progress Note - Dictate Date Seen: February 17, 2025 Medical Necessity Reason Pt with a Central, PICC or Fol: No Subjective Patient was seen and evaluated in follow up in the ICU. Patient apparently self- extubated yesterday late afternoon per nurse. Patient is awake, voices no complaints besides being hungry. Family at bedside.Chest x-ray shows NAD. vital signs Vital Sign Date Time Temp Pulse Resp B/P (MAP) Pulse Ox O2 Delivery O2 Flow Rate FiO2 02/17/25 10:16 49 13 144/62 (89) 100 142/61 (88) 02/17/25 10:00 Room Air* 0 21 02/17/25 09:01 97.8 97.8 Total Intake and Output 02/16/25 02/16/25 02/17/25 15:00 23:00 07:00 Intake Total 1088.478 ml 765.628 ml 1003.752 ml Output Total 0 ml Balance 1088.478 ml 765.628 ml 1003.752 ml medications Current Medications Medications Dose Ordered Sig/Jeremiah Route Start Time Stop Time Status Last Admin Dose Admin Nitroglycerin 0.4 mg Q5MINP PRN SL 02/10/25 12:45 02/10/25 13:26 0.4 MG Morphine Sulfate 2 mg [id number] PRN IV 02/10/25 12:45 02/10/25 13:23 2 MG Sennosides 17.2 mg HS PO 02/10/25 22:00 02/13/25 22:22 17.2 MG Diphenhydramine HCl 25 mg PRN PRN IV 02/11/25 08:15 Baclofen 10 mg TID PRN PO 02/13/25 14:45 02/14/25 10:20 10 MG Methylprednisolone Sodium Succinate 80 mg Q8HR IV 02/13/25 22:00 02/17/25 05:39 80 MG Ondansetron HCl 4 mg Q4HP PRN IV 02/14/25 21:00 Acetaminophen 650 mg Q6HP PRN PO 02/14/25 21:00 Acetaminophen/ Hydrocodone Bitart 1 tab Q6HP PRN PO 02/14/25 21:00 Morphine Sulfate 1 mg Q4HP PRN IV 02/14/25 21:00 02/17/25 04:03 1 MG Cyclobenzaprine HCl 10 mg TID PO 02/14/25 22:00 Docusate Sodium 100 mg BID PO 02/14/25 22:00 Lactated Ringer's 1,000 ml @ 125 mls/hr Q8H IV 02/15/25 08:45 02/17/25 07:49 125 MLS/HR Norepinephrine Bitartrate 250 ml @ 1.875 mls/ hr Q24H IV 02/15/25 13:30 02/15/25 21:02 1.875 MLS/HR objective GENERAL: Alert and oriented x 3. No acute distress. EYES: PERRL, EOMI. Anicteric. HENT: Moist mucous membranes. LUNGS: Decreased breath sounds. CARDIOVASCULAR: Regular rate and rhythm. ABDOMEN: Soft, nontender and nondistended. EXTREMITIES: No edema. SKIN: Warm, dry. laboratory and microbiology Laboratory Tests 02/17/25 03:33 Test 02/17/25 03:33 Range/Units Serum Glucose 159 H 74-106 mg/dL Problem List Chest pain. Ascending paralysis. Elevated CK level. Cervical spinal stenosis/myelopathy/central cord syndrome. Assessment/Plan Continued all current supportive medical care. Morphine and Floyd for pain management. Nitro sublingual. Vasopressors for hemodynamic support. Additional plan as per the hospital course. Critical care time of 45 minutes provided to include time spent evaluation of patient at bedside, when appropriate patient/family education for diagnosis, treatment plan, review of pertinent medical information and discussion of care with specialty providers and PCP. Dietary Evaluation Review Comments: Monitor PO itnake to meet 75% of his needs Expected Outcomes/Goals: bright [place]. Plan discussed with: Patient RITA SIN MD February 17, 2025 12:54
--- NOTE | 2025-02-17 22:56 | DVHPN2 ---
Progress Note - Dictate Date Seen: February 17, 2025 Medical Necessity Reason Pt with a Central, PICC or Fol: Yes The following are medically ne: Harrington Catheter Reason for harrington catheter: Strict I&O Subjective Patient seen and examined at bedside. S/p extubation, currently on room air. Overnight events reviewed. vital signs Vital Sign Date Time Temp Pulse Resp B/P (MAP) Pulse Ox O2 Delivery O2 Flow Rate FiO2 02/17/25 22:16 49 15 134/60 (84) 99 143/62 (89) 02/17/25 22:00 Room Air* 0 21 02/17/25 20:00 97.9 97.9 Total Intake and Output 02/16/25 02/16/25 02/17/25 15:00 23:00 07:00 Intake Total 1088.478 ml 765.628 ml 1003.752 ml Output Total 0 ml Balance 1088.478 ml 765.628 ml 1003.752 ml medications Current Medications Medications Dose Ordered Sig/Jeremiah Route Start Time Stop Time Status Last Admin Dose Admin Nitroglycerin 0.4 mg Q5MINP PRN SL 02/10/25 12:45 02/10/25 13:26 0.4 MG Morphine Sulfate 2 mg [id number] PRN IV 02/10/25 12:45 02/10/25 13:23 2 MG Sennosides 17.2 mg HS PO 02/10/25 22:00 02/13/25 22:22 17.2 MG Diphenhydramine HCl 25 mg PRN PRN IV 02/11/25 08:15 Baclofen 10 mg TID PRN PO 02/13/25 14:45 02/14/25 10:20 10 MG Methylprednisolone Sodium Succinate 80 mg Q8HR IV 02/13/25 22:00 02/17/25 21:37 80 MG Ondansetron HCl 4 mg Q4HP PRN IV 02/14/25 21:00 Acetaminophen 650 mg Q6HP PRN PO 02/14/25 21:00 Acetaminophen/ Hydrocodone Bitart 1 tab Q6HP PRN PO 02/14/25 21:00 Morphine Sulfate 1 mg Q4HP PRN IV 02/14/25 21:00 02/17/25 04:03 1 MG Cyclobenzaprine HCl 10 mg TID PO 02/14/25 22:00 Docusate Sodium 100 mg BID PO 02/14/25 22:00 Lactated Ringer's 1,000 ml @ 125 mls/hr Q8H IV 02/15/25 08:45 02/17/25 16:15 125 MLS/HR Norepinephrine Bitartrate 250 ml @ 1.875 mls/ hr Q24H IV 02/15/25 13:30 02/15/25 21:02 1.875 MLS/HR objective Gen.: Patient lying in bed in no apparent distress. Breathing on room air. Head: Normocephalic, atraumatic. Eyes: EOMI/PERRLA. Ears: Normal hearing. Normal anatomy. Neck/trachea: Trachea midline, supple. Nose: Normal external anatomy. Mouth: Moist mucous membranes. Chest: Decreased air entry bilaterally. No wheezing or rhonchi. Cardiovascular: Positive S1, positive S2. Regular rate and rhythm. Abdomen: Positive bowel sounds in all 4 quadrants. Soft, non-tender, non- distended. : Deferred. Rectal: Deferred. Skin: Warm, dry. Intact. Extremities: 2+ radial pulses bilaterally. No lower extremity edema. Neuro: Awake, alert, oriented x3. No gross motor or sensory deficits. Cranial nerves II through XII intact. Gait not assessed. laboratory and microbiology Laboratory Tests 02/17/25 03:33 Test 02/17/25 03:33 Range/Units Serum Glucose 159 H 74-106 mg/dL Assessment/Plan Impression: Acute hypoxic respiratory failure, postop S/p C3-C5 fusion for cervical myelopathy Pulmonary edema Elevated D-dimer GBS ruled out Overweight, BMI 29.4 Events: Patient underwent unplanned extubation yesterday Currently on room air Supplemental oxygen PRN No distress. Head of bed elevation Aspiration precautions Off pressors, hemodynamically stable. Continue antibiotics Continue IV steroids Pain control Avoid oversedation Physical therapy Follow up [facility] Surgery recommendations Labs and imaging reviewed. Rest of plan as noted below. Plan: S/p extubation Supplemental oxygen PRN Titrate to keep O2 sats above 92%. Continue antibiotics. F/u cultures. IV steroids Cardiology recs appreciated Pressors if necessary for hemodynamic support Titrate to keep mean arterial pressure greater than 65 mmHg. Monitor blood pressure Monitor renal function Monitor electrolytes. Supplement as necessary. Monitor ins and outs. Monitor Saran drain output Diet and lifestyle modifications for weight reduction GI prophylaxis. DVT prophylaxis. Prognosis: Poor given patient's multiple co-morbidities. Condition: Critical Rest of plan per hospitalist and other consultants. A total of 35 minutes of critical care time was spent reviewing the patient record, examining the patient, making a diagnostic and therapeutic plan, discussing this plan with the medical personnel, following up on diagnostic studies and following the patient for clinical stability excluding any and all procedures. At least 50% of this time was spent in direct, [id number] contact. Thank you Dr. Bland for allowing me to participate in this patient's care. Further recommendations will depend on the patient's clinical course. Please do not hesitate to contact me if you have any questions or concerns. This medical document was created using an electronic medical record system with [employer] dictation system. Although these documentations are being carefully reviewed, there may still be some phonetic and typographical changes. The errors are purely typographical, due to imperfection on the software program, and do not reflect any compromise in the patient's medical care. Dietary Evaluation Review Comments: Monitor PO itnake to meet 75% of his needs Expected Outcomes/Goals: maitaramon Wt. Plan discussed with: Other (DANE Doshi) Critical Care Time(min): 35 INGA ALMODOVAR MD February 17, 2025 22:56
[2025-02-18] VITALS (43 sets, daily range): BP systolic 109–170; BP diastolic 48–85; PULSE 44–76; RESP 11–19; TEMP 98.2–98.7; O2SAT 89–100
--- NOTE | 2025-02-18 11:19 | DVHPN2 ---
Progress Note - Dictate Date Seen: February 18, 2025 Medical Necessity Reason Pt with a Central, PICC or Fol: Yes The following are medically ne: Harrington Catheter Reason for harrington catheter: Strict I&O vital signs Vital Sign Date Time Temp Pulse Resp B/P (MAP) Pulse Ox O2 Delivery O2 Flow Rate FiO2 02/18/25 10:00 52 02/18/25 10:00 14 100 Room Air* 0 21 02/18/25 08:00 98.6 146/57 (86) 98.6 Total Intake and Output 02/17/25 02/17/25 02/18/25 15:00 23:00 07:00 Intake Total 1000 ml 1000 ml 1000 ml Output Total 1600 ml 2975 ml Balance 1000 ml -600 ml -1975 ml medications Current Medications Medications Dose Ordered Sig/Jeremiah Route Start Time Stop Time Status Last Admin Dose Admin Nitroglycerin 0.4 mg Q5MINP PRN SL 02/10/25 12:45 02/10/25 13:26 0.4 MG Morphine Sulfate 2 mg [id number] PRN IV 02/10/25 12:45 02/10/25 13:23 2 MG Sennosides 17.2 mg HS PO 02/10/25 22:00 02/13/25 22:22 17.2 MG Diphenhydramine HCl 25 mg PRN PRN IV 02/11/25 08:15 Baclofen 10 mg TID PRN PO 02/13/25 14:45 02/14/25 10:20 10 MG Methylprednisolone Sodium Succinate 80 mg Q8HR IV 02/13/25 22:00 02/18/25 06:40 80 MG Ondansetron HCl 4 mg Q4HP PRN IV 02/14/25 21:00 Acetaminophen 650 mg Q6HP PRN PO 02/14/25 21:00 Acetaminophen/ Hydrocodone Bitart 1 tab Q6HP PRN PO 02/14/25 21:00 Morphine Sulfate 1 mg Q4HP PRN IV 02/14/25 21:00 02/17/25 04:03 1 MG Cyclobenzaprine HCl 10 mg TID PO 02/14/25 22:00 Docusate Sodium 100 mg BID PO 02/14/25 22:00 Lactated Ringer's 1,000 ml @ 125 mls/hr Q8H IV 02/15/25 08:45 02/18/25 08:45 125 MLS/HR Norepinephrine Bitartrate 250 ml @ 1.875 mls/ hr Q24H IV 02/15/25 13:30 02/15/25 21:02 1.875 MLS/HR laboratory and microbiology Laboratory Tests 02/17/25 03:33 Test 02/17/25 03:33 Range/Units Serum Glucose 159 H 74-106 mg/dL Assessment/Plan Impression: Acute hypoxic respiratory failure, postop S/p C3-C5 fusion for cervical myelopathy Pulmonary edema Elevated D-dimer GBS ruled out Overweight, BMI 29.4 Patient seen and examined in [facility] Events: S/p extubation yesterday Low oxygen requirements On room air Hemodynamics improving, off pressors S/p EGD Evidence of gastritis visualized Labs and imaging reviewed Plan: Supplemental oxygen as needed Titrate to keep O2 sats above 92% Incentive spirometry Continue antibiotics F/u cultures Monitor renal function Monitor electrolytes Supplement as necessary Monitor ins and outs Physical therapy Okay to downgrade DVT prophylaxis Dietary Evaluation Review Comments: Monitor PO itnake to meet 75% of his needs Expected Outcomes/Goals: bright [place] Plan discussed with: Patient PAKO BELTRÁN MD February 18, 2025 11:19
--- NOTE | 2025-02-18 16:46 | DVHPN2 ---
Progress Note - Dictate Date Seen: February 18, 2025 Medical Necessity Reason Pt with a Central, PICC or Fol: Yes The following are medically ne: Harrington Catheter Reason for harrington catheter: Strict I&O Subjective Clinically feeling better. Wants to eat. Downgraded to step-down unit overnight. Pending swallow evaluation. vital signs Vital Sign Date Time Temp Pulse Resp B/P (MAP) Pulse Ox O2 Delivery O2 Flow Rate FiO2 02/18/25 16:00 98.7 47 14 131/60 (83) 100 98.7 142/56 (84) 02/18/25 16:00 Room Air* 0 21 Total Intake and Output 02/17/25 02/17/25 02/18/25 15:00 23:00 07:00 Intake Total 1000 ml 1000 ml 1000 ml Output Total 1600 ml 2975 ml Balance 1000 ml -600 ml -1975 ml medications Current Medications Medications Dose Ordered Sig/Jeremiah Route Start Time Stop Time Status Last Admin Dose Admin Nitroglycerin 0.4 mg Q5MINP PRN SL 02/10/25 12:45 02/10/25 13:26 0.4 MG Morphine Sulfate 2 mg [id number] PRN IV 02/10/25 12:45 02/10/25 13:23 2 MG Sennosides 17.2 mg HS PO 02/10/25 22:00 02/13/25 22:22 17.2 MG Ondansetron HCl 4 mg Q4HP PRN IV 02/14/25 21:00 Acetaminophen 650 mg Q6HP PRN PO 02/14/25 21:00 Acetaminophen/ Hydrocodone Bitart 1 tab Q6HP PRN PO 02/14/25 21:00 Morphine Sulfate 1 mg Q4HP PRN IV 02/14/25 21:00 02/17/25 04:03 1 MG Cyclobenzaprine HCl 10 mg TID PO 02/14/25 22:00 Docusate Sodium 100 mg BID PO 02/14/25 22:00 Norepinephrine Bitartrate 250 ml @ 1.875 mls/ hr Q24H IV 02/15/25 13:30 02/15/25 21:02 1.875 MLS/HR Methylprednisolone Sodium Succinate 20 mg Q12H IV 02/19/25 02:00 UNV Famotidine 20 mg Q12HR PO 02/18/25 22:00 UNV objective Oropharynx clear without any swelling or exudates. Neck supple. Heart regular rate and rhythm. Lungs fair air movement without wheezing. Abdomen soft positive bowel sounds. Extremities no edema. laboratory and microbiology Laboratory Tests 02/17/25 03:33 Test 02/17/25 03:33 Range/Units Serum Glucose 159 H 74-106 mg/dL Assessment/Plan Swallow evaluation. Clear liquid diet and advance as tolerates. Physical therapy and occupational therapy consultation. Continue taper of IV steroids. Further clinical management per clinical course. Discussed with the patient and nurse. We will also remove his arterial line. 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 Plan discussed with: Other MELE HUNTER MD February 18, 2025 16:46
--- NOTE | 2025-02-18 21:21 | DVHPN2 ---
Progress Note - Dictate Date Seen: February 18, 2025 Medical Necessity Reason Pt with a Central, PICC or Fol: Yes The following are medically ne: Harrington Catheter Reason for harrington catheter: Strict I&O Subjective Patient was seen and evaluated in follow up in the ICU. No overnight events. Patient reports feeling better today. Patient is now on room air. Pending swallow evaluation. vital signs Vital Sign Date Time Temp Pulse Resp B/P (MAP) Pulse Ox O2 Delivery O2 Flow Rate FiO2 02/18/25 20:00 59 17 100 Room Air* 0 21 02/18/25 20:00 98.4 98.4 Total Intake and Output 02/17/25 02/17/25 02/18/25 15:00 23:00 07:00 Intake Total 1000 ml 1000 ml 1000 ml Output Total 1600 ml 2975 ml Balance 1000 ml -600 ml -1975 ml medications Current Medications Medications Dose Ordered Sig/Jeremiah Route Start Time Stop Time Status Last Admin Dose Admin Nitroglycerin 0.4 mg Q5MINP PRN SL 02/10/25 12:45 02/10/25 13:26 0.4 MG Morphine Sulfate 2 mg [id number] PRN IV 02/10/25 12:45 02/10/25 13:23 2 MG Sennosides 17.2 mg HS PO 02/10/25 22:00 02/13/25 22:22 17.2 MG Ondansetron HCl 4 mg Q4HP PRN IV 02/14/25 21:00 Acetaminophen 650 mg Q6HP PRN PO 02/14/25 21:00 Acetaminophen/ Hydrocodone Bitart 1 tab Q6HP PRN PO 02/14/25 21:00 Morphine Sulfate 1 mg Q4HP PRN IV 02/14/25 21:00 02/17/25 04:03 1 MG Cyclobenzaprine HCl 10 mg TID PO 02/14/25 22:00 Docusate Sodium 100 mg BID PO 02/14/25 22:00 Norepinephrine Bitartrate 250 ml @ 1.875 mls/ hr Q24H IV 02/15/25 13:30 02/15/25 21:02 1.875 MLS/HR Methylprednisolone Sodium Succinate 20 mg Q12H IV 02/19/25 02:00 Famotidine 20 mg Q12HR PO 02/18/25 22:00 objective GENERAL: Alert and oriented x 3. No acute distress. EYES: PERRL, EOMI. Anicteric. HENT: Moist mucous membranes. LUNGS: Decreased breath sounds. CARDIOVASCULAR: Regular rate and rhythm. ABDOMEN: Soft, nontender and nondistended. EXTREMITIES: No edema. SKIN: Warm, dry. laboratory and microbiology Laboratory Tests 02/17/25 03:33 Test 02/17/25 03:33 Range/Units Serum Glucose 159 H 74-106 mg/dL Problem List Chest pain. Ascending paralysis. Elevated CK level. Cervical spinal stenosis/myelopathy/central cord syndrome. Assessment/Plan Continued all current supportive medical care. Morphine and [place] for pain management. Nitro SL. Vasopressors for hemodynamic support. Additional plan as per the hospital course. Critical care time of 45 minutes provided to include time spent evaluation of patient at bedside, when appropriate patient/family education for diagnosis, treatment plan, review of pertinent medical information and discussion of care with specialty providers and PCP. Dietary Evaluation Review Comments: Monitor PO itnake to meet 75% of his needs Expected Outcomes/Goals: bright [place]. Plan discussed with: Patient RITA SIN MD February 18, 2025 21:21
[2025-02-18] MEDS: FAMOTIDINE 20 MG TAB PO SCH (22:05)
[2025-02-19] VITALS (18 sets, daily range): BP systolic 98–135; BP diastolic 46–70; PULSE 44–73; RESP 11–21; TEMP 97.7–98.7; O2SAT 93–100
[2025-02-19] MEDS: methylPREDNISolone SOD SUCC 40 MG/ML VL IV SCH (02:27)
--- NOTE | 2025-02-19 11:37 | DVHPN2 ---
Progress Note - Dictate Date Seen: February 19, 2025 Medical Necessity Reason Pt with a Central, PICC or Fol: Yes The following are medically ne: Harrington Catheter Reason for harrington catheter: Strict I&O Subjective Clinically feeling better. No complaints vital signs Vital Sign Date Time Temp Pulse Resp B/P (MAP) Pulse Ox O2 Delivery O2 Flow Rate FiO2 02/19/25 10:00 15 100 Room Air* 0 21 02/19/25 10:00 61 02/19/25 08:00 98.6 125/68 (87) 98.6 Total Intake and Output 02/18/25 02/18/25 02/19/25 15:00 23:00 07:00 Intake Total 875 ml 0 ml 460 ml Output Total 1875 ml 1900 ml Balance 875 ml -1875 ml -1440 ml medications Current Medications Medications Dose Ordered Sig/Jeremiah Route Start Time Stop Time Status Last Admin Dose Admin Nitroglycerin 0.4 mg Q5MINP PRN SL 02/10/25 12:45 02/10/25 13:26 0.4 MG Morphine Sulfate 2 mg [id number] PRN IV 02/10/25 12:45 02/10/25 13:23 2 MG Sennosides 17.2 mg HS PO 02/10/25 22:00 02/18/25 22:05 17.2 MG Ondansetron HCl 4 mg Q4HP PRN IV 02/14/25 21:00 Acetaminophen 650 mg Q6HP PRN PO 02/14/25 21:00 Acetaminophen/ Hydrocodone Bitart 1 tab Q6HP PRN PO 02/14/25 21:00 Morphine Sulfate 1 mg Q4HP PRN IV 02/14/25 21:00 02/17/25 04:03 1 MG Cyclobenzaprine HCl 10 mg TID PO 02/14/25 22:00 02/19/25 05:58 10 MG Docusate Sodium 100 mg BID PO 02/14/25 22:00 02/19/25 09:25 100 MG Norepinephrine Bitartrate 250 ml @ 1.875 mls/ hr Q24H IV 02/15/25 13:30 02/15/25 21:02 1.875 MLS/HR Methylprednisolone Sodium Succinate 20 mg Q12H IV 02/19/25 02:00 02/19/25 02:27 20 MG Famotidine 20 mg Q12HR PO 02/18/25 22:00 02/19/25 09:25 20 MG objective Oropharynx clear without any swelling or exudates. Neck supple. Heart regular rate and rhythm. Lungs fair air movement without wheezing. Abdomen soft positive bowel sounds. Extremities no edema. laboratory and microbiology Laboratory Tests 02/17/25 03:33 Test 02/17/25 03:33 Range/Units Serum Glucose 159 H 74-106 mg/dL Assessment/Plan Tolerating diet. Vitals are stable. No acute overnight events. Therefore we will downgrade and transferred telemetry floor. Continue physical therapy and occupational therapy. Once he is little stronger we will discontinue Harrington catheter hopefully in the next 24-48 hours. Otherwise continue rest of supportive care and treatment. Follow clinical management per clinical course. Discussed with the patient and nurse. Dietary Evaluation Review Comments: Monitor PO itnake to meet 75% of his needs Expected Outcomes/Goals: bright [place]. Plan discussed with: Patient, Other MELE HUNTER MD February 19, 2025 11:37
--- NOTE | 2025-02-19 18:37 | DVHPN2 ---
Progress Note - Dictate Date Seen: February 19, 2025 Medical Necessity Reason Pt with a Central, PICC or Fol: Yes The following are medically ne: Harrington Catheter Reason for harrington catheter: Strict I&O vital signs Vital Sign Date Time Temp Pulse Resp B/P (MAP) Pulse Ox O2 Delivery O2 Flow Rate FiO2 02/19/25 18:00 18 100 Room Air* 0 21 02/19/25 18:00 52 02/19/25 16:00 98.7 103/57 (72) 98.7 Total Intake and Output 02/18/25 02/18/25 02/19/25 15:00 23:00 07:00 Intake Total 875 ml 0 ml 460 ml Output Total 1875 ml 1900 ml Balance 875 ml -1875 ml -1440 ml medications Current Medications Medications Dose Ordered Sig/Jeremiah Route Start Time Stop Time Status Last Admin Dose Admin Nitroglycerin 0.4 mg Q5MINP PRN SL 02/10/25 12:45 02/10/25 13:26 0.4 MG Morphine Sulfate 2 mg [id number] PRN IV 02/10/25 12:45 02/10/25 13:23 2 MG Sennosides 17.2 mg HS PO 02/10/25 22:00 02/18/25 22:05 17.2 MG Ondansetron HCl 4 mg Q4HP PRN IV 02/14/25 21:00 Acetaminophen 650 mg Q6HP PRN PO 02/14/25 21:00 Acetaminophen/ Hydrocodone Bitart 1 tab Q6HP PRN PO 02/14/25 21:00 Morphine Sulfate 1 mg Q4HP PRN IV 02/14/25 21:00 02/17/25 04:03 1 MG Cyclobenzaprine HCl 10 mg TID PO 02/14/25 22:00 02/19/25 16:28 10 MG Docusate Sodium 100 mg BID PO 02/14/25 22:00 02/19/25 09:25 100 MG Norepinephrine Bitartrate 250 ml @ 1.875 mls/ hr Q24H IV 02/15/25 13:30 02/15/25 21:02 1.875 MLS/HR Methylprednisolone Sodium Succinate 20 mg Q12H IV 02/19/25 02:00 02/19/25 15:33 20 MG Famotidine 20 mg Q12HR PO 02/18/25 22:00 02/19/25 09:25 20 MG laboratory and microbiology Laboratory Tests 02/17/25 03:33 Test 02/17/25 03:33 Range/Units Serum Glucose 159 H 74-106 mg/dL Assessment/Plan Impression: Acute hypoxic respiratory failure, postop S/p C3-C5 fusion for cervical myelopathy Pulmonary edema Elevated D-dimer GBS ruled out Overweight, BMI 29.4 Patient seen and examined Events: S/p extubation Low oxygen requirements On room air Hemodynamics improving Labs and imaging reviewed Plan: Supplemental oxygen as needed Titrate to keep O2 sats above 92% Incentive spirometry Continue antibiotics F/u cultures Monitor renal function Monitor electrolytes Supplement as necessary Monitor ins and outs Physical therapy Okay to downgrade from pulmonary standpoint DVT prophylaxis Dietary Evaluation Review Comments: Monitor PO itnake to meet 75% of his needs Expected Outcomes/Goals: bright [place] Plan discussed with: Patient PAKO BELTRÁN MD February 19, 2025 18:36
--- NOTE | 2025-02-19 19:26 | DVHPN2 ---
Progress Note - Dictate Date Seen: February 19, 2025 Medical Necessity Reason Pt with a Central, PICC or Fol: Yes The following are medically ne: Harrington Catheter Reason for harrington catheter: Strict I&O Subjective Patient was seen and evaluated in follow up in the ICU. Patient reports feeling well. Patient passed swallow eval and was started on diet. Pending PT/OT eval. Patient declining for SNF placement. vital signs Vital Sign Date Time Temp Pulse Resp B/P (MAP) Pulse Ox O2 Delivery O2 Flow Rate FiO2 02/19/25 18:00 18 100 Room Air* 0 21 02/19/25 18:00 52 02/19/25 16:00 98.7 103/57 (72) 98.7 Total Intake and Output 02/18/25 02/18/25 02/19/25 15:00 23:00 07:00 Intake Total 875 ml 0 ml 460 ml Output Total 1875 ml 1900 ml Balance 875 ml -1875 ml -1440 ml medications Current Medications Medications Dose Ordered Sig/Jeremiah Route Start Time Stop Time Status Last Admin Dose Admin Nitroglycerin 0.4 mg Q5MINP PRN SL 02/10/25 12:45 02/10/25 13:26 0.4 MG Morphine Sulfate 2 mg [id number] PRN IV 02/10/25 12:45 02/10/25 13:23 2 MG Sennosides 17.2 mg HS PO 02/10/25 22:00 02/18/25 22:05 17.2 MG Ondansetron HCl 4 mg Q4HP PRN IV 02/14/25 21:00 Acetaminophen 650 mg Q6HP PRN PO 02/14/25 21:00 Acetaminophen/ Hydrocodone Bitart 1 tab Q6HP PRN PO 02/14/25 21:00 Morphine Sulfate 1 mg Q4HP PRN IV 02/14/25 21:00 02/17/25 04:03 1 MG Cyclobenzaprine HCl 10 mg TID PO 02/14/25 22:00 02/19/25 16:28 10 MG Docusate Sodium 100 mg BID PO 02/14/25 22:00 02/19/25 09:25 100 MG Norepinephrine Bitartrate 250 ml @ 1.875 mls/ hr Q24H IV 02/15/25 13:30 02/15/25 21:02 1.875 MLS/HR Methylprednisolone Sodium Succinate 20 mg Q12H IV 02/19/25 02:00 02/19/25 15:33 20 MG Famotidine 20 mg Q12HR PO 02/18/25 22:00 02/19/25 09:25 20 MG objective GENERAL: Alert and oriented x 3. No acute distress. EYES: PERRL, EOMI. Anicteric. HENT: Moist mucous membranes. LUNGS: Decreased breath sounds. CARDIOVASCULAR: Regular rate and rhythm. ABDOMEN: Soft, nontender and nondistended. EXTREMITIES: No edema. SKIN: Warm, dry. laboratory and microbiology Laboratory Tests 02/17/25 03:33 Test 02/17/25 03:33 Range/Units Serum Glucose 159 H 74-106 mg/dL Problem List Chest pain. Ascending paralysis. Elevated CK level. Cervical spinal stenosis/myelopathy/central cord syndrome. Acute hypoxic respiratory failure, postop. S/p C3-C5 fusion for cervical myelopathy. Pulmonary edema. Overweight, BMI 29.4. Assessment/Plan Continued all current supportive medical care. Morphine and [place] for pain management. Nitro SL. Vasopressors for hemodynamic support. Additional plan as per the hospital course. Critical care time of 45 minutes provided to include time spent evaluation of patient at bedside, when appropriate patient/family education for diagnosis, treatment plan, review of pertinent medical information and discussion of care with specialty providers and PCP. Dietary Evaluation Review Comments: Monitor PO itnake to meet 75% of his needs Expected Outcomes/Goals: bright [place]. Plan discussed with: Patient RITA SIN MD February 19, 2025 19:26
[2025-02-20] VITALS (8 sets, daily range): BP systolic 106–129; BP diastolic 60–77; PULSE 52–70; RESP 16–18; TEMP 97–98.5; O2SAT 92–98
--- NOTE | 2025-02-20 12:14 | DVHPN2 ---
Progress Note - Dictate Date Seen: February 20, 2025 Medical Necessity Reason Pt with a Central, PICC or Fol: Yes The following are medically ne: Harrington Catheter Reason for harrington catheter: Strict I&O vital signs Vital Sign Date Time Temp Pulse Resp B/P (MAP) Pulse Ox O2 Delivery O2 Flow Rate FiO2 02/20/25 08:39 97.0 52 17 110/60 (77) 92 97.0 02/20/25 08:00 Room Air* 0 21 Total Intake and Output 02/19/25 02/19/25 02/20/25 15:00 23:00 07:00 Intake Total 480 ml 480 ml Output Total 1400 ml 850 ml Balance -920 ml -370 ml medications Current Medications Medications Dose Ordered Sig/Jeremiah Route Start Time Stop Time Status Last Admin Dose Admin Nitroglycerin 0.4 mg Q5MINP PRN SL 02/10/25 12:45 02/10/25 13:26 0.4 MG Morphine Sulfate 2 mg [id number] PRN IV 02/10/25 12:45 02/10/25 13:23 2 MG Sennosides 17.2 mg HS PO 02/10/25 22:00 02/19/25 22:19 17.2 MG Ondansetron HCl 4 mg Q4HP PRN IV 02/14/25 21:00 Acetaminophen 650 mg Q6HP PRN PO 02/14/25 21:00 Acetaminophen/ Hydrocodone Bitart 1 tab Q6HP PRN PO 02/14/25 21:00 Morphine Sulfate 1 mg Q4HP PRN IV 02/14/25 21:00 02/17/25 04:03 1 MG Cyclobenzaprine HCl 10 mg TID PO 02/14/25 22:00 02/20/25 05:39 10 MG Docusate Sodium 100 mg BID PO 02/14/25 22:00 02/19/25 22:18 100 MG Methylprednisolone Sodium Succinate 20 mg Q12H IV 02/19/25 02:00 02/20/25 02:09 20 MG Famotidine 20 mg Q12HR PO 02/18/25 22:00 02/20/25 09:44 20 MG laboratory and microbiology Laboratory Tests 02/17/25 03:33 Test 02/17/25 03:33 Range/Units Serum Glucose 159 H 74-106 mg/dL Assessment/Plan Impression: Acute hypoxic respiratory failure, postop S/p C3-C5 fusion for cervical myelopathy Pulmonary edema Elevated D-dimer GBS ruled out Overweight, BMI 29.4 Patient seen and examined Events: S/p extubation d/graded] no events Labs and imaging reviewed Plan: Supplemental oxygen as needed Titrate to keep O2 sats above 92% Incentive spirometry Continue antibiotics F/u cultures Monitor renal function Monitor electrolytes Supplement as necessary Monitor ins and outs Physical therapy DVT prophylaxis Dietary Evaluation Review Comments: Monitor PO [place]ake to meet 75% of his needs Expected Outcomes/Goals: bright [place] Plan discussed with: Other (rn) PAKO BELTRÁN MD February 20, 2025 12:14
[2025-02-20] MEDS ORDERED: HYDR-4902 PO (15:50)
[2025-02-20] MEDS ORDERED: SENN-58 PO (15:50)
[2025-02-20] MEDS ORDERED: PRED20TA2 PO (15:50)
--- NOTE | 2025-02-20 15:52 | DVHDS2 ---
Discharge Summary Date of Admission February 09, 2025 at 22:34 Date of Discharge: February 21, 2025 Labs/Diagnostic Data: Laboratory Results Test 02/17/25 03:33 02/16/25 07:16 02/16/25 03:00 02/15/25 00:41 White Blood Count 6.4 10^3/uL (4.4-10.8) Red Blood Count 4.77 10^6/uL (4.5-5.90) Hemoglobin 17.1 g/dL (13.5-17.5) Hematocrit 47.2 % (41.0-53.0) Mean Corpuscular Volume 98.9 fL (80.0-100.0) Mean Corpuscular Hemoglobin 35.7 pg (28.0-32.0) Mean Corpuscular Hemoglobin Concent 36.1 g/dL (32.0-36.0) Red Cell Distribution Width 12.6 % (11.8-14.3) Platelet Count 140 10^3/uL (140-450) Mean Platelet Volume 7.7 fL (6.9-10.8) Neutrophils (%) (Auto) 83.9 % (37.0-80.0) Lymphocytes (%) (Auto) 10.0 % (10.0-50.0) Monocytes (%) (Auto) 6.0 % (0.0-12.0) Eosinophils (%) (Auto) 0.0 % (0.0-7.0) Basophils (%) (Auto) 0.1 % (0.0-2.0) Neutrophils # (Auto) 5.3 10 ^3/uL (1.6-8.6) Lymphocytes # (Auto) 0.6 10 ^3/uL (0.4-5.4) Monocytes # (Auto) 0.4 10 ^3/uL (0-1.3) Eosinophils # (Auto) 0 10 ^3/uL (0-0.8) Basophils # (Auto) 0 10 ^3/uL (0-0.2) Nucleated Red Blood Cells 0.3 % Sodium Level 134 mmol/L (136-145) Potassium Level 4.2 mmol/L (3.5-5.1) Chloride Level 104 mmol/L (98-107) Carbon Dioxide Level 22 mmol/L (20-31) Anion Gap 8 (5-15) Blood Urea Nitrogen 18 mg/dL (9-23) Creatinine 0.54 mg/dL (0.700-1.30) Glomerular Filtration Rate Calc 109 mL/min (>90) BUN/Creatinine Ratio 33.3 (10.0-20.0) Serum Glucose 159 mg/dL (74-106) Calcium Level 9.1 mg/dL (8.7-10.4) Blood Gas Specimen Type Arterial Blood Gas Sample Site Arterial line Blood Gas Patient Temperature 37.0 Arterial Blood Date Drawn [id number] Arterial Blood pH 7.451 (7.350-7.450) Arterial Blood Partial Pressure CO2 35.1 mmHg (35.0-48.0) Arterial Blood Partial Pressure O2 90.6 mmHg (83.0-108.0) Arterial Blood HCO3 23.9 mmol/L (21.0-28.0) Arterial Blood Oxygen Saturation 96.8 % (94.0-98.0) Arterial Blood Base Excess 0.5 mmol/L (-2.0-3.0) Arterial Blood Oxyhemoglobin 96.2 % (94.0-98.0) Arterial Blood Carboxyhemoglobin 0.4 % (0.5-1.5) Arterial Blood Methemoglobin 0.2 % (0.0-1.5) Ghanshyam Test N/a Blood Gas Total Hemoglobin 15.00 g/dL (13.5-17.5) Blood Gas Set Respiration Rate 18.0 Blood Gas Modality Vent - ac FiO2 % 30.0 Blood Gas Tidal Volume 500.0 Blood Gas PEEP or CPAP 5.0 Magnesium Level 2.1 mg/dL (1.6-2.6) Blood Gas Spontaneous Tidal Volume 500 Blood Gas Notified Time [id number] Test 02/13/25 09:41 02/11/25 06:07 02/10/25 15:20 02/10/25 05:44 Vitamin B12 Level 304 pg/mL (211-911) Methylmalonic Acid 245 nmol/L (0-378) Homocysteine 13.2 umol/L (0.0-17.2) Folic Acid 12.00 ng/mL (>5.38) D-Dimer, Quantitative 0.91 mg/L FEU (0.0-0.49) Troponin I High Sensitivity 11 ng/L (</=54) Prothrombin Time 10.9 sec (9.3-11.8) Prothrombin Time INR 1.03 (0.9-1.15) Creatine Kinase MB 8.0 ng/mL (0.0-10.4) Test 02/09/25 21:28 02/09/25 17:13 02/09/25 00:00 CSF Tube Number Tube 3 CSF Appearance Clear, colorless CSF WBC 1 CUMM (0-5) CSF RBC 66 CUMM (0-5) CSF Protein (Tube 2) 73.9 mg/dL (15-45) CSF Mononuclear Cells % CSF Polymorphonuclear Cells % CSF Glucose 60 mg/dL (40-70) Phosphorus Level 3.4 mg/dL (2.4-5.1) Total Bilirubin 0.7 mg/dL (0.2-1.0) Aspartate Amino Transferase (AST) 25 U/L (13-40) Alanine Aminotransferase (ALT) 22 U/L (7-40) Alkaline Phosphatase 89 U/L (46-116) Creatine Kinase 416 U/L (46-171) B-Type Natriuretic Peptide 90.03 pg/mL (0-100) Total Protein 7.0 g/dL (5.7-8.2) Albumin 4.1 g/dL (3.2-4.8) Urine Color Light-yellow (Yellow) Urine Clarity Turbid (Clear) Urine pH 7.0 (5.0-9.0) Urine Specific [place] 1.019 (1.001-1.035) Urine Protein Negative (Negative) Urine Ketones Negative (Negative) Urine Blood Trace /uL (Negative) Urine Nitrite Negative (Negative) Urine Bilirubin Negative (Negative) Urine Urobilinogen Normal mg/dL (Negative) Urine Leukocyte Esterase Negative /uL (Negative) Urine RBC <1 /hpf (0 - 3) Urine Microscopic WBC < 1 /HPF (0-3) Urine Squamous Epithelial Cells Few /hpf (<5) Urine Amorphous Crystals Few /hpf (None Seen) Urine Bacteria Few /hpf (None Seen) Urine Glucose Normal mg/dL (Normal) Other Laboratory Tests 02/17/25 03:33 Brief Hx & Hospital Course: Mr. Bassam Aguilar is a [id number]-male with no reported history who presents with a chief complaint of generalized weakness onset 3 months ago. Patient's roommate states the patient was in his normal state of health (ambulatory and without neuro deficit), then woke up one morning about 1.5 months ago experiencing LT leg weakness. Pt reports, "I was dragging my left leg," then weakness progressively worsened to involve both lower extremities, progressing to both upper extremities, to the point where he could no longer ambulate or hold objects. He also notes numbness that started in his lower extremities and now has ascended to BUE and his abdominal wall. About 1 week ago he began experiencing bilateral lower extremity swelling, difficulty breathing, and associated abdominal and back "tightness." Per friend, patient sought medical attention for the first time yesterday, was sent to [facility] for blood tests and was called today to go to ED due to abnormal lab results, patient found to have a CK of 416 as abnormal lab on ED workup. Patient CXR: unremarkable, CT head wo contrast no acute abnormality, BLE venous US with no DVT. Patient denies chest pain, dyspnea, headaches, dizziness, blurry vision, nausea, vomiting, fevers, chills, dysuria, loss of bowel function. Patient admitted for further evaluation and treatment. 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 However subsequently patient noted to have significant C-spine stenosis. Therefore he underwent emergent spine surgery evaluation and consultation and successful C-spine surgery. Please see the detailed operative note. Postop patient did well. He was extubated and moved to the floor. He is improving slowly. His upper extremities strength has improved to 3+ out of five. His lower extremity strength has improved to three out of five. Patient requires intense physical therapy therefore he is advised and highly recommended to go to nursing home facility. However patient and his family both declined and in fact refused to go and wanted to go home given he has help at home. Once again I have talked to patient on the day of discharge to see if he has changed his mind however still wants to go home and not to rehabilitation. Therefore home transport and home health is being arranged and home physical therapy as well at being discharged in stable condition. Patient is advised to take fall precautions at home. He is advised to follow up with orthopedic surgeon post C-spine surgery follow up in 1-2 weeks. Patient verbalized understanding of his hospital diagnosis, procedure he had done, discharge medications, discharge instructions and agree with follow-up plan of care as mentioned. Consults/Reason for consult MRI CERVICAL SPINE CLINICAL HISTORY: r/o GBS TECHNIQUE: Multiplanar, multisequence MR images of the cervical spine with and without contrast. 20 cc of clariscan contrast from a prefilled syringe was administered intravenously. COMPARISON: CT CERVICAL WO W CONTRAST on DOS: 02/09/25 FINDINGS: There is compression of the cord with patchy hyperintense T2 signal changes at the C3-C4 and C4-C5 levels likely related to compressive myelomalacia. There is no pathologic enhancement. The craniocervical junction appears within normal limits. The cervical vertebral bodies demonstrate normal height and marrow signal.. There is straightening of the cervical lordosis. There is disc desiccation throughout with moderate disc space narrowing / loss at multiple levels. There is multilevel facet arthropathy in the upper cervical spine. At C2-C3 there is bilateral facet arthropathy, [id number]-right. There is no canal stenosis. There is mild left neural foraminal stenosis. At C3-C4 there is posterior disc osteophyte complex and bilateral uncovertebral and facet arthropathy. There is severe spinal canal stenosis. There is severe bilateral neural foraminal stenosis. At C4-C5 there is posterior disc osteophyte complex and bilateral uncovertebral and facet arthropathy. There is moderate spinal canal stenosis. There is moderate to severe left and moderate right neural foraminal stenosis. At C5-C6 there is disc bulge eccentric to the right. There is no canal stenosis. There is moderate bilateral neural foraminal stenosis, [id number]-left. At C6-C7 there is posterior disc osteophyte complex and bilateral uncovertebral arthropathy, [id number]-right. There is no spinal canal stenosis. There is moderate to severe left and moderate right neural foraminal stenosis. At C7-T1 there is disc bulge eccentric to the left and bilateral facet arthropathy. There is no canal stenosis. There is moderate left and mild right neural foraminal stenosis. IMPRESSION: 1. Straightening of the cervical spine with multilevel advanced degenerative changes as described levels above, worst at C3-C4. 2. There is severe spinal canal and bilateral neural foraminal stenosis at C3- C4. 3. There is moderate spinal canal and moderate to severe left and moderate right neural foraminal stenosis at C4-C5. 4. 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 HS:Y Operations or Procedures Operative Report - 2 Report Details Date: 02/14/25 Preop Diagnosis: cervical spinal stenosis/myelopathy/central cord syndrome Postop Diagnosis: same as pre op Surgeon: Rk Zaldivar MD Manager Ent: Marilu Matamoros NP Anesthesiologist: frieda Anesthesia: General Consent: The patient was informed of the risks and benefits of the procedure. These include but are not limited to complications of anesthesia, postoperative infection, incomplete relief of symptoms, recurrence of symptoms, damage to blood vessels, nerves and tendons, deep venous thrombosis, pulmonary embolism and possible need for repeat surgery in the future. 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 Post Op Diagnosis: same as pre op Procedure: Cervical 3 to 4 anterior cervical discectomy with Cervical 3-4 foraminotomies and facetectomies to decompression the spinal canal and Cervical 4 nerve roots Cervical 4 to 5 anterior cervical discectomy with Cervical 4-5 foraminotomies and facetectomies to decompression the spinal canal and Cervical 5 nerve roots Cervical 3-5 anterior cervical Fusion Cervical 3-5 anterior cervical instrumentation with freestanding cages Cervical 3-4 placement of allograft prosthetic device Cervical 4-5 placement of allograft prosthetic device Microscope for micro dissection Surgeon: Rk Zaldivar MD Anesthesia: General Assist: Marilu Matamoros NP Fluids and EBL: see anesthesia note Procedure Note: The patient was seen in the Pre-anesthesia Care Unit and the site of the incision was initialed by me with a felt tipped marker. All questions by the patient were answered to the satisfaction of the patient and the chart was reviewed. The patient was taken to the operating room and placed supine on the [facility] top table. General anesthesia was induced. Neuromonitoring leads were placed. A rolled towel was placed between the shoulder blades to hyperextend out the chest which will allow better exposure of the cervical spine. Halter traction to 10 pounds was placed. The arms were padded and adducted to the patients side making sure all pulses in the hands were present. Tape traction was undertaken on the shoulders to give us better radiographic exposure of the distal cervical spine. A gel-pad was placed under the occiput and 5 degrees of extension was placed on the neck without adverse effects to the patient. The anterior neck was prepped and draped. Pre-operative antibiotics were given 30 minutes prior to the start of the procedure. A c-arm fluoroscope was used to josé miguel out the incision site. At this time, a time out was taken per usual protocol. Next an incision was made through the skin with a 15 blade scalpel through the subcutaneous tissue down to the platysma. Self-retainers were placed. The platysma was incised along the longitudinal border with a Metzenbaum scissors. Blunt dissection was made through the deep cervical and pre-tracheal fascia taking care to protect the carotid sheath laterally and the Trachea/esophagus medially. The dissection was carried down to the prevertebral fascia. Any crossing vessels were ligated using a vascular clip or coagulated with a bovie. An esophageal retractor was next used to retract the trachea/esophagus and a bent [address] through the anterior annulus of the cervical disk and a lateral C-arm fluoroscopic image was taken to confirm that we were at the correct level. Next, bovie electrocautery was used to expose the bones of cervical 3,4,5, and bipolar electrocuatery was used to lift up the Longus colli and capitus muscles. Black-Belt Self Retainers were used to retract the longus colli and capitus muscles bilaterally as well as the trachea/esophagus to the right and the carotid sheath to the left. Smooth thin Black-Belt retractors were placed proximally and distally and a needle was placed again in the anterior annulus of the disk and an image taken to confirm the correct level. At this point, the microscope was wheeled in and an 11 blade scalpel incised the anterior annulus of the cervical 3/4 and 4/5 disks. Next, straight and curved curettes removed the remainder of the disks all the way down to the posterior longitudinal ligament. Carefully, a Kerison number one rongeur incised the posterior longitudinal ligament at the lateral end of the above disks and using a micro, blunt tip nerve hook to separate the posterior longitudinal ligament from the dura, alternating 1 mm and 2 mm Kerison rongeurs removed the posterior longitudinal ligament. Next, Kerison 1mm and 2 mm rongeurs were alternated to get under the uncinate processes and undercut them to perform foraminotomies and factectomies at the cervical 3/4 and 4/5 levels to decompress the central canal and cervical 4,5 nerve roots. Next the microscope was wheeled away and the c-arm fluoroscope was wheeled into the field and a lateral image was obtained. Increasing size graft trials were used starting at a 5 mm thick size until the proper tension in the disk space and height orthodoxy obtained. We then placed final free standing cages at C3/4 and 4/5. Satisfactory placement was confirmed in the AP and lateral views using a C-arm fluoroscope. Copious irrigation of the wound with sterile saline and all bleeding was controlled before closure initiated. At this point, a [address] Croatian [address] Drain was place deep to the Platysma muscle and the Platysma was approximated with one interrupted 0-Vicryl suture. The subcutaneous tissue was closed with interrupted 2-0 vicryl sutures and the skin was closed with gregg. Sterile dressings were placed and a cervical collar placed, the patient extubated, transferred to the stretcher and taken to the Recovery Room in unremarkable condition. Other Notes: CPT codes: 58044,[id number], 57012 Condition Stable Condition at Discharge: Stable Final Diagnosis/Problems List C-spine stenosis with lower extremity weakness status post C-spine surgery Discharge Disposition: Home with Health Services Discharge Instruct/Medications Diet: Consistent carbohydrate, Cardiac 2g Na,low cholest Activity: No Restrictions, As Tolerated Activity comment: With assistance. Fall precautions. Use walker. Follow Up/Referral: Dr. Zaldivar orthopedic surgeon post spine surgery follow up in two weeks Medications: As prescribed and home medications as you were taking prior to this admission New Medications: Hydrocodone-Acetaminophen (Hydrocodone Bitartrate/AC 5-325 mg) 1 Tab Tab 1 TAB PO Q6HP PRN, #14 TAB Prednisone (Prednisone) 20 Mg Tab 20 MG PO DAILY@BREAKFAST, #5 MG Senna (Senokot) 8.6 Mg Tab 8.6 MG PO QPM, #14 TAB Discharge Statement: "Patient was advised to return to the ER or call 911 if any headaches, dizziness, shortness of breath, chest pain, abdominal pain, bleeding, fevers, or worsening of medical condition. Patient was counseled about treatment plan, medications, possible side effects, patientverbalized understanding. All questions were answered to the best of my ability. This discharge took greater then 30 minutes in planning, reviewing documentation, counseling the patient, and discussing with other team members." ASSESSMENT ASSESSMENT Assessment C-spine stenosis with lower extremity weakness status post C-spine surgery MELE HUNTER MD February 20, 2025 15:52
--- NOTE | 2025-02-20 16:58 | PRN ---
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 However his left hand was only able to move his 4 and 5 digits preoperatively Patient able to move both legs, patient reports working with physical therapy able to go from sitting to standing with assistance. This is also a vast improvement over his preoperative symptoms Left anterior neck wound still well approximated with gregg No swelling no drainage no redness no signs of infection noted drain site has healed well There are no barriers to discharge to rehab or home from a spine surgery perspective Patient will need a follow up appointment with Dr. Zaldivar in 11 days Call [phone] for a appointment [address], [address], [place] [address] Call with questions Sincere Matamoros [facility] Orthopaedic Spine Surgery nurse practitioner For Dr Chet Zaldivar Patient was examined, chart reviewed, labs evaluated, and diagnostic studies and findings analyzed. Case was discussed with Dr. Rk Zaldivar who formulated the plan of care. This medical document was created using an electronic medical record system with [employer] dictation system. Although this document has been carefully reviewed, there might still be some phonetic and typographical errors. These areas are purely typographical due to imperfections of the software programs, and do not reflect any compromise in the patient's medical care. KAREN MATAMOROS NP February 20, 2025 16:58
--- NOTE | 2025-02-20 19:24 | DVHPN2 ---
Progress Note - Dictate Date Seen: February 20, 2025 Medical Necessity Reason Pt with a Central, PICC or Fol: Yes The following are medically ne: Harrington Catheter Reason for harrington catheter: Strict I&O Subjective Patient was seen and evaluated in follow up. Patient was downgraded to telemetry. Patient is resting in bed. Patient is tolerating diet. Pending HH and DME to be arranged. Telemetry reviewed. vital signs Vital Sign Date Time Temp Pulse Resp B/P (MAP) Pulse Ox O2 Delivery O2 Flow Rate FiO2 02/20/25 12:40 98.1 60 18 117/64 (81) 96 98.1 02/20/25 08:00 Room Air* 0 21 Total Intake and Output 02/19/25 02/19/25 02/20/25 15:00 23:00 07:00 Intake Total 480 ml 480 ml Output Total 1400 ml 850 ml Balance -920 ml -370 ml medications Current Medications Medications Dose Ordered Sig/Jeremiah Route Start Time Stop Time Status Last Admin Dose Admin Nitroglycerin 0.4 mg Q5MINP PRN SL 02/10/25 12:45 02/10/25 13:26 0.4 MG Morphine Sulfate 2 mg [id number] PRN IV 02/10/25 12:45 02/10/25 13:23 2 MG Sennosides 17.2 mg HS PO 02/10/25 22:00 02/19/25 22:19 17.2 MG Ondansetron HCl 4 mg Q4HP PRN IV 02/14/25 21:00 Acetaminophen 650 mg Q6HP PRN PO 02/14/25 21:00 Acetaminophen/ Hydrocodone Bitart 1 tab Q6HP PRN PO 02/14/25 21:00 Morphine Sulfate 1 mg Q4HP PRN IV 02/14/25 21:00 02/17/25 04:03 1 MG Cyclobenzaprine HCl 10 mg TID PO 02/14/25 22:00 02/20/25 05:39 10 MG Docusate Sodium 100 mg BID PO 02/14/25 22:00 02/19/25 22:18 100 MG Methylprednisolone Sodium Succinate 20 mg Q12H IV 02/19/25 02:00 02/20/25 02:09 20 MG Famotidine 20 mg Q12HR PO 02/18/25 22:00 02/20/25 09:44 20 MG objective GENERAL: Alert and oriented x 3. No acute distress. EYES: PERRL, EOMI. Anicteric. HENT: Moist mucous membranes. LUNGS: Decreased breath sounds. CARDIOVASCULAR: Regular rate and rhythm. ABDOMEN: Soft, nontender and nondistended. EXTREMITIES: No edema. SKIN: Warm, dry. laboratory and microbiology Laboratory Tests 02/17/25 03:33 Test 02/17/25 03:33 Range/Units Serum Glucose 159 H 74-106 mg/dL Problem List Chest pain. Ascending paralysis. Elevated CK level. Cervical spinal stenosis/myelopathy/central cord syndrome. Acute hypoxic respiratory failure, postop. S/p C3-C5 fusion for cervical myelopathy. Pulmonary edema. Overweight, BMI 29.4. Assessment/Plan Continued all current supportive medical care. Morphine and [place] for pain management. Nitro SL. Additional plan as per the hospital course. Dietary Evaluation Review Comments: Monitor PO [place] to meet 75% of his needs Expected Outcomes/Goals: bright [place]. Plan discussed with: Patient RITA SIN MD February 20, 2025 13:00
[2025-02-21 01:00] VITALS: BP 141/74; PULSE 56; RESP 17; TEMP 97.6; O2SAT 95
[2025-02-21 05:00] VITALS: BP 131/81; PULSE 56; RESP 17; TEMP 97.7; O2SAT 94
[2025-02-21 08:00] VITALS: PULSE 53; RESP 18; O2SAT 99
[2025-02-21 09:04] VITALS: BP 116/68; PULSE 53; RESP 18; TEMP 98.2; O2SAT 99
[2025-02-21 09:27] VITALS: BP 116/68; PULSE 53; RESP 18; TEMP 98.2; O2SAT 99
--- NOTE | 2025-02-21 11:50 | DVHPN2 ---
Progress Note - Dictate Date Seen: February 21, 2025 Medical Necessity Reason Pt with a Central, PICC or Fol: Yes The following are medically ne: Harrington Catheter Reason for harrington catheter: Strict I&O Subjective Patient was seen and evaluated in follow up. No overnight events. Patient denies any pain or discomfort. [facility] has been arranged for the patient. Awaiting DME arrangements. Telemetry reviewed. vital signs Vital Sign Date Time Temp Pulse Resp B/P (MAP) Pulse Ox O2 Delivery O2 Flow Rate FiO2 02/21/25 09:27 98.2 53 18 116/68 (84) 99 98.2 02/21/25 08:00 Room Air* 0 21 Total Intake and Output 02/20/25 02/20/25 02/21/25 15:00 23:00 07:00 Intake Total 1070 ml 120 ml Output Total 750 ml 50 ml Balance 320 ml 70 ml medications Current Medications Medications Dose Ordered Sig/Jeremiah Route Start Time Stop Time Status Last Admin Dose Admin Nitroglycerin 0.4 mg Q5MINP PRN SL 02/10/25 12:45 02/10/25 13:26 0.4 MG Morphine Sulfate 2 mg [id number] PRN IV 02/10/25 12:45 02/10/25 13:23 2 MG Sennosides 17.2 mg HS PO 02/10/25 22:00 02/20/25 21:40 17.2 MG Ondansetron HCl 4 mg Q4HP PRN IV 02/14/25 21:00 Acetaminophen 650 mg Q6HP PRN PO 02/14/25 21:00 Acetaminophen/ Hydrocodone Bitart 1 tab Q6HP PRN PO 02/14/25 21:00 Morphine Sulfate 1 mg Q4HP PRN IV 02/14/25 21:00 02/17/25 04:03 1 MG Cyclobenzaprine HCl 10 mg TID PO 02/14/25 22:00 02/21/25 05:39 10 MG Docusate Sodium 100 mg BID PO 02/14/25 22:00 02/20/25 21:39 100 MG Famotidine 20 mg Q12HR PO 02/18/25 22:00 02/20/25 21:40 20 MG objective GENERAL: Alert and oriented x 3. No acute distress. EYES: PERRL, EOMI. Anicteric. HENT: Moist mucous membranes. LUNGS: Decreased breath sounds. CARDIOVASCULAR: Regular rate and rhythm. ABDOMEN: Soft, nontender and nondistended. EXTREMITIES: No edema. SKIN: Warm, dry. laboratory and microbiology Laboratory Tests 02/17/25 03:33 Test 02/17/25 03:33 Range/Units Serum Glucose 159 H 74-106 mg/dL Problem List Chest pain. Ascending paralysis. Elevated CK level. Cervical spinal stenosis/myelopathy/central cord syndrome. Acute hypoxic respiratory failure, postop. S/p C3-C5 fusion for cervical myelopathy. Pulmonary edema. Overweight, BMI 29.4. Assessment/Plan Continued all current supportive medical care. Nitro SL. Morphine and [place] for pain management. Additional plan as per the hospital course. Dietary Evaluation Review Comments: Monitor PO [place] to meet 75% of his needs Expected Outcomes/Goals: bright [place]. Plan discussed with: Patient RITA SIN MD February 21, 2025 11:28
[2025-02-21 13:05] VITALS: BP 115/72; PULSE 58; RESP 18; TEMP 97.7; O2SAT 96
== END 2025-02-21 14:34 | disposition home health service (06) | DRG 471 ==
LOC: ER 16:46 → OVERFLOW 22:34 → TELE-CENTR 23:45 → ICU WEST 02-14 22:56 → DOU IN ICU 02-17 23:10 → TELE-CENTR 02-19 20:55
PROVIDERS: ADMIT Hospitalist; ATTEND Hospitalist
PROC: 009U3ZX Drainage of Spinal Canal, Percutaneous Approach, Diagnostic (ICD-10-PCS; 2025-02-09)
PROC: 4A023N7 Measurement of Cardiac Sampling and Pressure, Left Heart, Percutaneous Approach (ICD-10-PCS; 2025-02-11)
PROC: B211YZZ Fluoroscopy of Multiple Coronary Arteries using Other Contrast (ICD-10-PCS; 2025-02-11)
PROC: 0RB30ZZ Excision of Cervical Vertebral Disc, Open Approach (ICD-10-PCS; 2025-02-14)
PROC: 01N10ZZ Release Cervical Nerve, Open Approach (ICD-10-PCS; 2025-02-14)
PROC: 00NW0ZZ Release Cervical Spinal Cord, Open Approach (ICD-10-PCS; 2025-02-14)
PROC: 4A11X4G Monitoring of Peripheral Nervous Electrical Activity, Intraoperative, External Approach (ICD-10-PCS; 2025-02-14)
PROC: 0BH17EZ Insertion of Endotracheal Airway into Trachea, Via Natural or Artificial Opening (ICD-10-PCS; 2025-02-14)
PROC: 5A1945Z Respiratory Ventilation, 24-96 Consecutive Hours (ICD-10-PCS; 2025-02-14)
PROC: 0RG20A0 Fusion of 2 or more Cervical Vertebral Joints with Interbody Fusion Device, Anterior Approach, Anterior Column, Open Approach (ICD-10-PCS; principal; 2025-02-14 20:13)
DX: M48.02 Spinal stenosis, cervical region (principal); J96.01 Acute respiratory failure with hypoxia; S14.123A Central cord syndrome at C3 level of cervical spinal cord, initial encounter; G95.89 Other specified diseases of spinal cord; E87.3 Alkalosis; M50.021 Cervical disc disorder at C4-C5 level with myelopathy; J81.1 Chronic pulmonary edema; G83.9 Paralytic syndrome, unspecified; R74.8 Abnormal levels of other serum enzymes; I49.3 Ventricular premature depolarization; E66.3 Overweight; E53.8 Deficiency of other specified B group vitamins; E11.9 Type 2 diabetes mellitus without complications; Z68.29 Body mass index [BMI] 29.0-29.9, adult; Z79.899 Other long term (current) drug therapy; X58.XXXA Exposure to other specified factors, initial encounter; Y93.89 Activity, other specified; Y92.89 Other specified places as the place of occurrence of the external cause; Y99.8 Other external cause status
CPT/HCPCS: 36415; 36600; 70450; 70553; 71045; 72040; 72127; 72130; 72133; 72142; 72157; 76000; 80048; 80053; 81001; 82550; 82553; 82607; 82746; 82805; 82945; 83090; 83735; 83880; 84100; 84157; 84484; 85025; 85379; 85610; 87040; 87070; 87081; 87205; 89051; 92610; 93005; 93970; 94002; 94003; 97110; 97116; 97163; 97530; 99152; G0378; J1561; J1956; J2250; J2405; J2704; Q9967